=== PATIENT | female | born 1945 | race Caucasian/White ===

== ENCOUNTER 2019-06-10 10:42 | Emergency (ER) | payer MEDICARE, SELFPAY ==
[2019-06-10 10:54] VITALS: BP 146/82; PULSE 89; RESP 16; TEMP 36.3; O2SAT 100
--- NOTE | 2019-06-10 12:05 | ED.GENADULT ---
HPI - General Adult General Chief complaint: Upper Respiratory Infection Stated complaint: sinus drainage/meek/sore throat Time Seen by Provider: 06/10/19 12:05 Source: patient and RN notes reviewed Mode of arrival: ambulatory Limitations: no limitations History of Present Illness HPI narrative: 74-year-old female presents with complains of upper respiratory symptoms, cough, and bilateral otalgia for 1 day. [place] cold plus without relief. Yaquelin says she was coughed on a day ago and now is feeling bad. Constant dry cough. Rhinorrhea and nasal congestion. Denies sore throat. No high fevers, drooling, neck or throat swelling. No chest pain, wheezing, or shortness of breath. No exacerbation factors. Denies nausea, vomiting, and abdominal pain. Tolerating liquids well. Remains active. Some parts of this dictation were generated by voice recognition software and may contain typographical and/or grammatical inaccuracies. Related Data Home Medications Medication Instructions Recorded Confirmed Caltrate + D3 Plus Minerals 02/24/19 05/02/19 Centrum Silver 02/24/19 05/02/19 lansoprazole [Prevacid] 15 mg PO DAILY 02/24/19 05/02/19 albuterol sulfate [ProAir HFA] INHALATION 03/06/19 05/02/19 cholecalciferol (vitamin D3) 25 1,000 unit PO DAILY 05/02/19 05/02/19 mcg (1,000 unit) capsule atorvastatin 06/10/19 Allergies Allergy/AdvReac Type Severity Reaction Status Date / Time adhesive Allergy Unknown Verified 12/19/18 12:31 adhesive tape Allergy Unknown BLISTERS Verified 01/31/19 07:53 AT SITE Penicillins Allergy Unknown Verified 12/19/18 12:31 poison carol extract Allergy Unknown Verified 12/19/18 12:31 Sulfa (Sulfonamide Allergy Unknown Verified 12/19/18 12:31 Antibiotics) sulfanilamide Allergy Unknown Verified 12/12/09 13:57 SKIN GLUE Allergy Unknown RASH Uncoded 01/31/19 07:54 ITCHING. Review of Systems Review of Systems: Narrative: CONSTITUTIONAL: Denies fever, chills, sweats. EYES: Denies visual changes, redness, discharge. ENT:Complains of rhinorrhea, congestion, bilateral otalgia. Denies sore throat. CARDIOVASCULAR: Denies chest pain, palpitations, edema. RESPIRATORY: Denies dyspnea, wheezing. Complains of dry cough. GASTROINTESTINAL: Denies abdominal pain, nausea, vomiting, diarrhea. GENITOURINARY: Denies dysuria, hematuria, abnormal discharge. SKIN: Denies rash or itching. MUSCULOSKELETAL: Denies acute back pain, joint pain, or myalgia. NEUROLOGIC: Denies numbness or focal weakness. PSYCHIATRIC: Denies anxiety or depression. Complains of intermittent MEEK. All systems reviewed & are unremarkable except as noted in HPI and below. [facility] Past Medical History Medical History Allergies Anemia Breast cancer Chicken pox Colitis Constipation History of measles, mumps, or rubella Hot flashes Hyperlipidemia Hypertension Mononucleosis X3 Osteoarthritis Osteopenia Pneumonia Tobacco abuse Surgical History Surgical History H/O lumpectomy X2 2009 Hx of mastectomy Double 04/2016 Family History Family History Father Family history of malignant neoplasm of brain Family history of diabetes mellitus in first degree relative Malignant neoplasm of prostate Diabetes mellitus Mother Hypertension Patient's mother is Sibling Hypertension Patient's sister is in good health Family history of diabetes mellitus in first degree relative Diabetes mellitus Family history of malignant neoplasm of urinary bladder Family history of chronic obstructive pulmonary disease Other Family history of allergic disorder Family history of cardiovascular disease Social History Social History Smoking packs per day: 3 Smoking cigarettes per day:
== END 2019-06-10 12:22 | disposition home or self-care (01) ==
PROVIDERS: Emergency Provider Nurse Practitioner Family; PCP Internal Medicine
DX: J40 Bronchitis, not specified as acute or chronic (principal); E78.5 Hyperlipidemia, unspecified; I10 Essential (primary) hypertension; M19.90 Unspecified osteoarthritis, unspecified site; M81.0 Age-related osteoporosis without current pathological fracture; Z85.3 Personal history of malignant neoplasm of breast; Z90.13 Acquired absence of bilateral breasts and nipples
CPT/HCPCS: 99213; G0463

== ENCOUNTER → 2019-11-13 12:26 | Outpatient (CLI) | payer MEDICARE, SELFPAY ==
--- NOTE | ~2019-11-13 | CT_ITS ---
EXAMINATION: CT lung screening EXAM DATE: 11/13/2019 12:50 INDICATION: Lung cancer screening. Personal history of nicotine dependence. TECHNIQUE: Spiral low dose CT of the chest without contrast. Axial, coronal and sagittal images were reviewed. The dose-length product (DLP) for this examination was 104.38 mGy-cm. The exposure was t ailored according to patient size (auto mA exposure control), and iterative reconstruction (ASIR) was used as additional dose reduction technique. There is no prior study for comparison. FINDINGS: There is mild to moderate emphysema and hyperinflation. Tracheobronchial tree is patent. There is no mediastinal, hilar or axillary lymphadenopathy. There are no pleural or pericardial e ffusions. There is no pneumothorax. Heart normal in size. There is minimal coronary arterial ca lcification, arterial sclerosis. Upper abdomen is unremarkable. There is thoracic spondylosis witho ut osteoblastic or osteolytic lesions identified. IMPRESSION: Lung-RADS category 1, negative (<1%chance of malignancy); recommend continued LDCT screen ing in 1 year. Reviewed, dictated and finalized at location A. IMPRESSION: Lung-RADS category 1, negative (<1%chance of malignancy); recommend continued LDCT screening in 1 year.
== END ==
PROVIDERS: PCP Internal Medicine; Visit Provider Nurse Practitioner
DX: Z87.891 Personal history of nicotine dependence (principal)
CPT/HCPCS: G0297

== ENCOUNTER 2020-01-10 17:24 | Emergency (ER) | payer MEDICARE, SELFPAY ==
[2020-01-10 17:38] VITALS: BP 144/86; PULSE 95; RESP 12; TEMP 36.6; O2SAT 97
--- NOTE | 2020-01-10 18:09 | ED.GENADULT ---
HPI - General Adult General Chief complaint: Ear Stated complaint: ear pain Time Seen by Provider: 01/10/20 18:09 Source: patient Mode of arrival: ambulatory Limitations: no limitations History of Present Illness HPI narrative: 74-year-old female patient presents to the [facility] with complaints of pain to the left earlobe. Patient states about 5 or 6 days ago she did wear some earrings that irritated her ears. Patient states she does have sensitive skin and typically has to wear hypoallergenic earrings and this time she did not. Patient states that since then she has had some swelling, redness that has spread to the ear, pain, itching and now some yellow drainage from the earlobe. Patient states she has been putting some Neosporin on there that does help with the itching. Denies any fevers, body aches or chills. Related Data Home Medications Medication Instructions Recorded Confirmed Caltrate + D3 Plus Minerals 02/24/19 01/08/20 Centrum Silver 02/24/19 01/08/20 lansoprazole [Prevacid] 15 mg PO DAILY 02/24/19 01/10/20 cholecalciferol (vitamin D3) 25 1,000 unit PO DAILY 05/02/19 01/10/20 mcg (1,000 unit) capsule Allergies Allergy/AdvReac Type Severity Reaction Status Date / Time adhesive Allergy Unknown Rash Verified 01/10/20 17:31 adhesive tape Allergy Unknown BLISTERS Verified 01/10/20 17:31 AT SITE Penicillins Allergy Unknown Rash Verified 01/10/20 17:31 poison carol extract Allergy Unknown Rash Verified 01/10/20 17:31 Sulfa (Sulfonamide Allergy Unknown Rash Verified 01/10/20 17:31 Antibiotics) sulfanilamide Allergy Unknown Rash Verified 01/10/20 17:31 SKIN GLUE Allergy Unknown RASH Uncoded 01/08/20 10:34 ITCHING. Review of Systems Review of Systems: Narrative: CONSTITUTIONAL: Denies fever, chills, or sweats. EYES: Denies visual changes, redness, or discharge. ENT: Denies rhinorrhea, congestion, sore throat, or otalgia. CARDIOVASCULAR: Denies chest pain, palpitations, or edema. RESPIRATORY: Denies cough or dyspnea. GASTROINTESTINAL: Denies abdominal pain, nausea, vomiting, or diarrhea. GENITOURINARY: Denies dysuria or hematuria. SKIN: Positive redness, swelling and drainage from the left earlobe with itching MUSCULOSKELETAL: Denies back pain, joint pain, or myalgia. NEUROLOGIC: Denies headache, numbness, or weakness. PSYCHIATRIC: Denies anxiety or depression. [facility] Past Medical History Medical History (Updated 01/10/20 @ 18:14 by BENITEZ [place]) Allergies Anemia Breast cancer Chicken pox Colitis Constipation COPD (chronic obstructive pulmonary disease) GERD (gastroesophageal reflux disease) High cholesterol History of measles, mumps, or rubella Hot flashes Hyperlipidemia Hypertension Mononucleosis X3 Osteoarthritis Osteopenia Pneumonia Tobacco abuse Surgical History Surgical History H/O lumpectomy L was in 2009 R was 2014 H/O: hysterectomy Hx of mastectomy Double 04/2016 Family History Family History Father Family history of malignant neoplasm of brain Family history of diabetes mellitus in first degree relative Malignant neoplasm of prostate Diabetes mellitus Mother Hypertension Patient's mother is Sibling Hypertension Patient's sister is in good health Family history of diabetes mellitus in first degree relative Diabetes mellitus Family history of malignant neoplasm of urinary bladder Family history of chronic obstructive pulmonary disease Other Family history of allergic disorder Family history of cardiovascular disease Social History Social History Smoking status: Former smoker Second hand tobacco smoke exposure: Yes Smoking end date: 06/03/19 Additional smoking assessment comments: Pt smoked 5 cigarettes per day Alcohol intake: current Substance use: unkno
== END 2020-01-10 18:19 | disposition home or self-care (01) ==
PROVIDERS: Emergency Provider Nurse Practitioner Family; PCP Internal Medicine
DX: H60.12 Cellulitis of left external ear (principal); Z87.891 Personal history of nicotine dependence; Z85.3 Personal history of malignant neoplasm of breast; J44.9 Chronic obstructive pulmonary disease, unspecified; K21.9 Gastro-esophageal reflux disease without esophagitis; E78.00 Pure hypercholesterolemia, unspecified; E78.5 Hyperlipidemia, unspecified; I10 Essential (primary) hypertension; M19.90 Unspecified osteoarthritis, unspecified site; M85.80 Other specified disorders of bone density and structure, unspecified site; Z90.13 Acquired absence of bilateral breasts and nipples
CPT/HCPCS: 99213; G0463

== ENCOUNTER 2020-01-16 08:28 | Emergency (ER) | payer MEDICARE, SELFPAY ==
[2020-01-16 08:40] VITALS: BP 147/98; PULSE 101; RESP 17; TEMP 37; O2SAT 100
[2020-01-16 08:53] LABS: Basophils Absolute Auto 0.1 K/mm3 (0.0-0.1); Basophils Percent Auto 0.5 % (0.2-1.2); Eosinophils Absolute Auto 0.5 K/mm3 (0-0.3); Eosinophils Percent Auto 5.7 % (0-4.4); Hematocrit 38.6 % (37.0-47.0); Hemoglobin 12.7 g/dL (12.0-15.0); Immature Granulocyte Absolute 0.03 K/mm3 (0.00-0.031); Immature Granulocyte Percent A 0.3 % (0-0.5); Lymphocytes Absolute Auto 2.47 K/mm3 (0.9-3.2); Mean Corpuscular HGB Conc 32.9 g/dl (32-36); Mean Corpuscular Hemoglobin 33.3 pg (26-34); Mean Corpuscular Volume 101.3 fl (80-100); Mean Platelet Volume 10.6 fl (7.4-10.4); Monocytes Absolute Auto 0.9 K/mm3 (0.1-0.6); Monocytes Percent Auto 9.9 % (2.6-8.5); Neutrophils Absolute Auto 5.2 K/mm3 (1.3-6.7); Neutrophils Percent Auto 56.6 % (45.5-73.1); Platelet Count Result 225 k/mm3 (150-375); Red Blood Count 3.81 M/mm3 (4.2-5.4); Red Cell Distribution Width 12.6 % (11.5-14.5); White Blood Count 9.2 K/mm3 (4.5-10.0)
[2020-01-16 09:03] LABS: Prothrombin Time 12.9 Seconds (11.1-14.7)
[2020-01-16 09:04] LABS: Partial Thromboplastin Time 28.6 SECONDS (22.3-36.8)
[2020-01-16 09:13] LABS: Alanine Aminotransferase 16 U/L (4-35); Albumin Level 4.1 g/dL (3.5-5.1); Alkaline Phosphatase 83 U/L (38-126); Anion Gap 9 mmol/L (8-16); Aspartate Amino Transferase 24 U/L (14-36); Bilirubin,Total 0.7 mg/dL (0.2-1.3); Blood Urea Nitrogen 17 mg/dL (7-17); CRP 1.1 mg/dL (<1.0); Calcium 9.5 mg/dL (8.4-10.2); Carbon Dioxide 29 mmol/L (22-30); Chloride 101 mmol/L (98-107); Estimated CRCL calculation 40 ml/min; Estimated Glomerular Filt Rate 49; Glucose 145 mg/dL (65-105); Sodium 139 mmol/L (137-145)
--- NOTE | 2020-01-16 10:02 | ED.GENADULT ---
HPI - General Adult General Chief complaint: Ear Stated complaint: cellulitis Time Seen by Provider: 01/16/20 09:30 Source: patient Mode of arrival: ambulatory Limitations: no limitations History of Present Illness HPI narrative: Patient 74 years old white female presents with severe itching and weeping of the skin of the left ear distally, left side of neck. Started 1 week ago. 1 day later patient went to urgent care and started on antibiotics, topical Neosporin. 3 days ago was seen by her family physician and started on doxycycline, Polysporin and hydrocodone. Patient reports having allergy to an old earring mainly left ear, quit using it years ago, recently lost her good hearing years and started using the old earring again, 1 week prior to the beginning of her symptoms. Patient is nondiabetic. Patient denies any fever, chills, nausea, vomiting, headache, or hearing abnormality Related Data Home Medications Medication Instructions Recorded Confirmed Caltrate + D3 Plus Minerals 02/24/19 01/08/20 Centrum Silver 02/24/19 01/08/20 lansoprazole [Prevacid] 15 mg PO DAILY 02/24/19 01/10/20 cholecalciferol (vitamin D3) 25 1,000 unit PO DAILY 05/02/19 01/10/20 mcg (1,000 unit) capsule Allergies Allergy/AdvReac Type Severity Reaction Status Date / Time adhesive Allergy Unknown Rash Verified 01/16/20 08:45 adhesive tape Allergy Unknown BLISTERS Verified 01/16/20 08:45 AT SITE Penicillins Allergy Unknown Rash Verified 01/16/20 08:45 poison carol extract Allergy Unknown Rash Verified 01/16/20 08:45 Sulfa (Sulfonamide Allergy Unknown Rash Verified 01/16/20 08:45 Antibiotics) sulfanilamide Allergy Unknown Rash Verified 01/16/20 08:45 SKIN GLUE Allergy Unknown RASH Uncoded 01/16/20 08:45 ITCHING. Review of Systems Review of Systems: Narrative: CONSTITUTIONAL: Denies fever, chills, or sweats. EYES: Denies visual changes, redness, or discharge. ENT: Denies rhinorrhea, congestion, sore throat, or otalgia. CARDIOVASCULAR: Denies chest pain, palpitations, or edema. RESPIRATORY: Denies cough or dyspnea. GASTROINTESTINAL: Denies abdominal pain, nausea, vomiting, or diarrhea. GENITOURINARY: Denies dysuria or hematuria. SKIN: Denies rash or itching. MUSCULOSKELETAL: Denies back pain, joint pain, or myalgia. NEUROLOGIC: Denies headache, numbness, or weakness. PSYCHIATRIC: Denies anxiety or depression. [facility] Past Medical History Medical History (Updated 01/16/20 @ 10:24 by Maria C Looney MD) Allergies Anemia Breast cancer Chicken pox Colitis Constipation COPD (chronic obstructive pulmonary disease) GERD (gastroesophageal reflux disease) High cholesterol History of measles, mumps, or rubella Hot flashes Hyperlipidemia Hypertension Mononucleosis X3 Osteoarthritis Osteopenia Pneumonia Tobacco abuse Surgical History Surgical History H/O lumpectomy L was in 2009 R was 2014 H/O: hysterectomy Hx of mastectomy Double 04/2016 Family History Family History Father Family history of malignant neoplasm of brain Family history of diabetes mellitus in first degree relative Malignant neoplasm of prostate Diabetes mellitus Mother Hypertension Patient's mother is Sibling Hypertension Patient's sister is in good health Family history of diabetes mellitus in first degree relative Diabetes mellitus Family history of malignant neoplasm of urinary bladder Family history of chronic obstructive pulmonary disease Other Family history of allergic disorder Family history of cardiovascular disease Social History Social History Smoking status: Former smoker Second hand tobacco smoke exposure: Yes Smoking end date: 06/03/19 Additional smoking assessment comments: Pt smoked 5 cigarettes per day Alcohol intake: current Substance us
[2020-01-16] MEDS: predniSONE 20 MG TABLET 60 MG PO (10:28)
[2020-01-16] MEDS: LORATADINE 10 MG TABLET PO (10:29)
[2020-01-16 10:31] VITALS: BP 157/92; PULSE 80; RESP 17; O2SAT 96
[2020-01-16] MEDS: TRIAMCINOLONE ACET 0.5% OINT 15 GM TUBE 1 APPLIC TOPICAL (10:53)
== END 2020-01-16 11:00 | disposition home or self-care (01) ==
PROVIDERS: Emergency Provider Emergency Medicine; PCP Internal Medicine
DX: L23.0 Allergic contact dermatitis due to metals (principal); Z85.3 Personal history of malignant neoplasm of breast; K21.9 Gastro-esophageal reflux disease without esophagitis; E78.5 Hyperlipidemia, unspecified; I10 Essential (primary) hypertension; M19.90 Unspecified osteoarthritis, unspecified site; M85.80 Other specified disorders of bone density and structure, unspecified site; Z86.2 Personal history of diseases of the blood and blood-forming organs and certain disorders involving the immune mechanism; Z90.13 Acquired absence of bilateral breasts and nipples; Z87.891 Personal history of nicotine dependence
CPT/HCPCS: 36415; 80053; 83605; 85025; 85610; 85730; 86140; 87040; 99283; A9270; J7512

== ENCOUNTER 2020-01-26 09:11 | Emergency (ER) | payer MEDICARE, SELFPAY ==
[2020-01-26 09:17] VITALS: BP 157/92; PULSE 84; RESP 16; TEMP 36.4; O2SAT 99
[2020-01-26 09:22] VITALS: BP 157/92; PULSE 84; RESP 16; TEMP 36.4; O2SAT 99
--- NOTE | 2020-01-26 09:44 | ED.SKABFB ---
HPI - Skin/Abscess/Foreign Bdy General Chief complaint: Skin/Abscess/Foreign Body Stated complaint: rash Source: patient and RN notes reviewed Limitations: no limitations History of Present Illness HPI narrative: The patient, is on several meds, presents for wound/rash check. Patient relates she has had several visits including to urgent care and the ER for skin eruption of her left ear. She states that the first week of January she developed a rash around her left earlobe after wearing earrings in her pierced ears [it did not elicit allergic reaction on the opposite earlobe]. She has been treated first with clindamycin here and then doxycycline by PMD, for cellulitis. She was seen in the hospital ED and added steroids, and antihistamines for allergic reaction-after noncontributory lab testing. She complains of continued redness, itching progressing to pain, and scant discharge still centered on her earlobe, but with surrounding redness around neck and mastoid. Symptoms are mild to moderate, worse with palpation, unrelieved with previous preparations ; discussed will substitute bacteriocidal/antipseudomonal antibiotic [stopping Atarax], and to see ENT [that she has seen before ] if not improved Related Data Home Medications Medication Instructions Recorded Confirmed Caltrate + D3 Plus Minerals 02/24/19 01/08/20 Centrum Silver 02/24/19 01/08/20 lansoprazole [Prevacid] 15 mg PO DAILY 02/24/19 01/26/20 cholecalciferol (vitamin D3) 25 1,000 unit PO DAILY 05/02/19 01/26/20 mcg (1,000 unit) capsule Allergies Allergy/AdvReac Type Severity Reaction Status Date / Time adhesive Allergy Unknown Rash Verified 01/26/20 09:17 adhesive tape Allergy Unknown BLISTERS Verified 01/26/20 09:17 AT SITE Penicillins Allergy Unknown Rash Verified 01/26/20 09:17 poison carol extract Allergy Unknown Rash Verified 01/26/20 09:17 Sulfa (Sulfonamide Allergy Unknown Rash Verified 01/26/20 09:17 Antibiotics) sulfanilamide Allergy Unknown Rash Verified 01/26/20 09:17 SKIN GLUE Allergy Unknown RASH Uncoded 01/16/20 08:45 ITCHING. Review of Systems Review of Systems: Narrative: General/Constitutional: No weight loss,fever Eyes: N0: Redness,discharge Ears/Nose/Throat: No: Epistaxis,ear discharge Respiratory: Denies: Hemoptysis Gastrointestinal: No Vomiting, Bleeding-rectal Skin: No Lumps, REPORTS eruption Neurologic: No Focal Weakness,Sz Hematologic: Denies: Petechiae/Purpura Psychiatric: No: Suicida ideationl All Other Systems: Reviewed and Negative [facility] Past Medical History Medical History (Updated 01/26/20 @ 10:00 by Marvel Mcneal MD) Allergies Anemia Breast cancer Chicken pox Colitis Constipation COPD (chronic obstructive pulmonary disease) GERD (gastroesophageal reflux disease) High cholesterol History of measles, mumps, or rubella Hot flashes Hyperlipidemia Hypertension Mononucleosis X3 Osteoarthritis Osteopenia Pneumonia Tobacco abuse Surgical History Surgical History H/O lumpectomy L was in 2009 R was 2014 H/O: hysterectomy Hx of mastectomy Double 04/2016 Family History Family History Father Family history of malignant neoplasm of brain Family history of diabetes mellitus in first degree relative Malignant neoplasm of prostate Diabetes mellitus Mother Hypertension Patient's mother is Sibling Hypertension Patient's sister is in good health Family history of diabetes mellitus in first degree relative Diabetes mellitus Family history of malignant neoplasm of urinary bladder Family history of chronic obstructive pulmonary disease Other Family history of allergic disorder Family history of cardiovascular disease Social History Social History Smoking status: Former smoker Second hand tobacco smoke ex
== END 2020-01-26 09:55 | disposition home or self-care (01) ==
PROVIDERS: Emergency Provider Emergency Medicine; PCP Internal Medicine
DX: Z48.00 Encounter for change or removal of nonsurgical wound dressing (principal); Z87.2 Personal history of diseases of the skin and subcutaneous tissue; J44.9 Chronic obstructive pulmonary disease, unspecified; K21.9 Gastro-esophageal reflux disease without esophagitis; E78.00 Pure hypercholesterolemia, unspecified; E78.5 Hyperlipidemia, unspecified; I10 Essential (primary) hypertension; M19.90 Unspecified osteoarthritis, unspecified site; M85.80 Other specified disorders of bone density and structure, unspecified site; Z85.3 Personal history of malignant neoplasm of breast; Z90.13 Acquired absence of bilateral breasts and nipples; Z87.891 Personal history of nicotine dependence
CPT/HCPCS: 99213; G0463

== ENCOUNTER 2020-08-25 13:26 | Emergency (ER) | payer MEDICARE, SELFPAY ==
[2020-08-25] VITALS (9 sets, daily range): BP systolic 112–188; BP diastolic 74–123; PULSE 78–96; RESP 16–18; TEMP 36.5–36.6; O2SAT 96–100
--- NOTE | ~2020-08-25 | CT_ITS ---
EXAMINATION: CTA chest PE abdomen pel DATE: 08/25/2020 16:54 INDICATION: Right rib pain. Back and lower abdominal pain. Bloating. TECHNIQUE: Computed tomography (CT) pulmonary angiogram of the chest was performed with 100 mL Omnipa que-350 intravenous contrast. Additional 3D reconstructions utilizing coronal maximum intensity proje ction (MIP) were performed. CT of the abdomen and pelvis was performed with intravenous contrast util izing the same contrast bolus following a short delay. Automated exposure control and iterative recon struction technique were employed. The dose-length product was 802.97 mGy-cm. COMPARISON: None FINDINGS: Chest: Excellent contrast opacification of the pulmonary arteries. There is mild streak artifact from dense contrast in the superior vena cava and right atrium. Mild scattered respiratory motion artifact which does not significantly limit evaluation. No pulmonary embolism. Mild discoid atelectasis right lower lobe. No pneumonia, pulmonary edema or pleural effusion. Heart size is normal. No pericardial or ple ural effusion. Ectatic descending thoracic aorta measuring up to 3.8 cm maximal diameter with no diss ection. No pathologically enlarged thoracic lymphadenopathy. 1.4 cm right thyroid nodule 1-2 mm coars e calcification. Mild thoracic spondylosis. Abdomen/pelvis: Diffuse hepatic steatosis. Gallbladder, spleen, pancreas and bilateral adrenal glands are normal. Cou ple subcentimeter bilateral renal cysts. Mild scattered diverticulosis without adjacent inflammatory change to suggest diverticulitis. Small bowel and appendix are normal. Bladder, uterus and bilateral adnexa are normal. Fusiform infrarenal abdominal aortic aneurysm measuring up to 4.0 x 3.9 cm in maxi mal transaxial dimensions. Ectasia of the bilateral common iliac arteries measuring 1.6 cm in maximal diameter on the right and 1.9 cm on the left. No free intraperitoneal gas or fluid. No pathologicall y enlarged abdominal or pelvic lymphadenopathy. Mild lumbar dextroscoliosis with severe lower lumbar spondylosis. S1 is lumbarized on the left. IMPRESSION: 1. No pulmonary embolism or other acute cardiopulmonary disease. 2. No acute intra-abdominal/pelvic process. 3. 4.0 cm fusiform aneurysm of the infrarenal abdominal aorta with less prominent ectasia of the desc ending thoracic aorta and bilateral common iliac arteries. Reviewed, dictated and finalized at location A. IMPRESSION: 1. No pulmonary embolism or other acute cardiopulmonary disease. 2. No acute intra-abdominal/pelvic process. 3. 4.0 cm fusiform aneurysm of the infrarenal abdominal aorta with less promine nt ectasia of the descending thoracic aorta and bilateral common iliac arteries .
--- NOTE | ~2020-08-25 | XR_ITS ---
XR chest 1V portable 08/25/2020 15:50 Indication: Right rib pain Procedure: AP portable chest Comparison: 04/01/2016 Findings: Heart size normal. No focal air space disease, pulmonary edema, pleural effusion or suspect ed pneumothorax. Impression: 1: No acute cardiopulmonary disease. Reviewed, dictated and finalized at location A. Impression: 1: No acute cardiopulmonary disease.
[2020-08-25 14:10] LABS: Basophils Percent Auto 0.6 % (0.2-1.2); Eosinophils Absolute Auto 0.1 K/mm3 (0-0.3); Eosinophils Percent Auto 1.1 % (0-4.4); Hematocrit 39.4 % (37.0-47.0); Hemoglobin 13.1 g/dL (12.0-15.0); Immature Granulocyte Absolute 0.01 K/mm3 (0.00-0.031); Immature Granulocyte Percent A 0.2 % (0-0.5); Lymphocytes Absolute Auto 2.22 K/mm3 (0.9-3.2); Lymphocytes Percent Auto 33.9 % (18.3-44.2); Mean Corpuscular HGB Conc 33.2 g/dl (32-36); Mean Corpuscular Hemoglobin 32.8 pg (26-34); Mean Corpuscular Volume 98.5 fl (80-100); Mean Platelet Volume 9.7 fl (7.4-10.4); Monocytes Absolute Auto 0.7 K/mm3 (0.1-0.6); Monocytes Percent Auto 10.4 % (2.6-8.5); Neutrophils Absolute Auto 3.5 K/mm3 (1.3-6.7); Neutrophils Percent Auto 53.8 % (45.5-73.1); Platelet Count Result 257 k/mm3 (150-375); Red Cell Distribution Width 13.2 % (11.5-14.5); White Blood Count 6.5 K/mm3 (4.5-10.0)
[2020-08-25 14:20] LABS: Alanine Aminotransferase 26 U/L (4-35); Albumin Level 4.6 g/dL (3.5-5.1); Alkaline Phosphatase 86 U/L (38-126); Anion Gap 9 mmol/L (8-16); Aspartate Amino Transferase 38 U/L (14-36); Bilirubin,Total 0.3 mg/dL (0.2-1.3); Blood Urea Nitrogen 11 mg/dL (7-17); Calcium 10.3 mg/dL (8.4-10.2); Carbon Dioxide 25 mmol/L (22-30); Chloride 103 mmol/L (98-107); Estimated CRCL calculation 43 ml/min; Estimated Glomerular Filt Rate 54; Glucose 111 mg/dL (65-105); Lipase 81 U/L (23-300); Potassium 3.8 mmol/L (3.4-5.0); Sodium 137 mmol/L (137-145)
--- NOTE | 2020-08-25 15:40 | ECG_ITS ---
Measurements Intervals [place] Rate: 72 P: 65 OK: 133 QRS: 73 QRSD: 87 T: 61 QT: 387 QTc: 425 Interpretive Statements SINUS RHYTHM NORMAL ECG Electronically Signed On 08-25-2020 16:21:19 CDT by Siva Davis D.O.
--- NOTE | 2020-08-25 15:41 | ED.GENADULT ---
HPI - General Adult General Chief complaint: Unspecified Stated complaint: shingles, bloating Time Seen by Provider: 08/25/20 15:08 Source: patient and RN notes reviewed Mode of arrival: ambulatory Limitations: no limitations History of Present Illness HPI narrative: This is a 75 year old female who presents for evaluation of abdominal pain. She states she has been having diffuse abdominal pain since last night. Her pain has been constant and she is also reporting right chest pain. She describes her right chest pain as difficulty taking a breath. She has associated nausea. She reports having 4 small bowel movements today. She has been on treatment for shingles since last week. She reports talking Valtrex and ibuprofen. She denies cough, fever or chills. Related Data Home Medications Medication Instructions Recorded Confirmed Centrum Silver 02/24/19 08/15/20 lansoprazole [Prevacid] 15 mg PO DAILY 02/24/19 08/15/20 cholecalciferol (vitamin D3) 25 1,000 unit PO DAILY 05/02/19 08/15/20 mcg (1,000 unit) capsule Allergies Allergy/AdvReac Type Severity Reaction Status Date / Time adhesive Allergy Unknown Rash Verified 05/06/20 10:25 adhesive tape Allergy Unknown BLISTERS Verified 05/06/20 10:25 AT SITE Penicillins Allergy Unknown Rash Verified 05/06/20 10:25 poison carol extract Allergy Unknown Rash Verified 05/06/20 10:25 Sulfa (Sulfonamide Allergy Unknown Rash Verified 05/06/20 10:25 Antibiotics) sulfanilamide Allergy Unknown Rash Verified 05/06/20 10:25 SKIN GLUE Allergy Unknown RASH Uncoded 05/06/20 10:25 ITCHING. Review of Systems Review of Systems: Narrative: CONSTITUTIONAL: Denies fever, chills, or sweats. EYES: Denies visual changes, redness, or discharge. ENT: Denies rhinorrhea, congestion, sore throat, or otalgia. CARDIOVASCULAR: Denies palpitations, or edema. reports right chest pain RESPIRATORY: Denies cough. reports difficulty taking a breath. GASTROINTESTINAL: Denies vomiting, or diarrhea. reports nausea and abdominal pain GENITOURINARY: Denies dysuria or hematuria. SKIN: reports shingles rash. MUSCULOSKELETAL: Denies joint pain, or myalgia. NEUROLOGIC: Denies headache, numbness, PSYCHIATRIC: Denies anxiety or depression. All systems reviewed & are unremarkable except as noted in HPI and below PMFSH Past Medical History Medical History (Updated 08/25/20 @ 18:57 by Re Perez MD) Allergies Anemia Breast cancer Chicken pox Colitis Constipation COPD (chronic obstructive pulmonary disease) GERD (gastroesophageal reflux disease) High cholesterol History of measles, mumps, or rubella Hot flashes Hyperlipidemia Hypertension Mononucleosis X3 Osteoarthritis Osteopenia Pneumonia Tobacco abuse Surgical History Surgical History H/O lumpectomy L was in 2009 R was 2014 H/O: hysterectomy Hx of mastectomy Double 04/2016 Family History Family History Father Family history of malignant neoplasm of brain Family history of diabetes mellitus in first degree relative Malignant neoplasm of prostate Diabetes mellitus Mother Hypertension Patient's mother is Sibling Hypertension Patient's sister is in good health Family history of diabetes mellitus in first degree relative Diabetes mellitus Family history of malignant neoplasm of urinary bladder Family history of chronic obstructive pulmonary disease Other Family history of allergic disorder Family history of cardiovascular disease Social History Social History Smoking status: Former smoker Second hand tobacco smoke exposure: Yes Smoking end date: 06/03/19 Additional smoking assessment comments: Pt smoked 5 cigarettes per day Alcohol intake: current Substance use: unknown Gender identity (if verbalized by the patient): Leeroya
[2020-08-25 15:43] LABS: Add Urine Microscopic? NO; Appearance Urine Clear (Clear); Bilirubin Urine Negative (Negative); Blood Urine Negative (Negative); Color Urine Straw (Yellow); Glucose Urine UA Negative (Negative); Ketones Urine Negative (Negative); Leukocyte Esterase Ur Negative LEU/UL (Negative); Nitrate Urine Negative (Negative); Protein Urine Negative (Negative); Specific Grav Ur 1.008 (1.001-1.035); Urobilinogen Urine Negative mg/dL (<2.0)
--- NOTE | 2020-08-25 15:51 | PC.NURSE ---
called main lab and talked to barb @[id number] added pt, inr, ptt, d dimer, and trop
[2020-08-25] MEDS: ONDANSETRON INJ 4 MG/2 ML VIAL IV PUSH (15:58)
[2020-08-25] MEDS: LACTATED RINGERS 1,000 ML 999 ML IV CONT (15:58)
[2020-08-25 16:07] LABS: INR 0.9; Partial Thromboplastin Time 26.9 SECONDS (22.3-36.8); Prothrombin Time 12.8 Seconds (11.1-14.7)
[2020-08-25 18:29] LABS: Troponin I < 0.012 ng/mL (0.000-0.034)
== END 2020-08-25 19:11 | disposition home or self-care (01) ==
PROVIDERS: Emergency Medicine; Emergency Provider General Practice; PCP Internal Medicine
DX: B02.9 Zoster without complications (principal); I71.4 Abdominal aortic aneurysm, without rupture; R10.84 Generalized abdominal pain; J44.9 Chronic obstructive pulmonary disease, unspecified; K21.9 Gastro-esophageal reflux disease without esophagitis; E78.5 Hyperlipidemia, unspecified; M19.90 Unspecified osteoarthritis, unspecified site; M85.80 Other specified disorders of bone density and structure, unspecified site; Z85.3 Personal history of malignant neoplasm of breast; Z87.891 Personal history of nicotine dependence
CPT/HCPCS: 36415; 71045; 71275; 74177; 80053; 81003; 83690; 84484; 85025; 85380; 85610; 85730; 93005; 96365; 96375; 99284; J0131; J2405; J7120; Q9967

== ENCOUNTER 2020-12-07 13:08 | Inpatient (IN) | payer MEDICARE, SELFPAY ==
--- NOTE | ~2020-12-07 | CT_ITS ---
EXAMINATION: CT abdomen pelvis w con DATE: 12/07/2020 14:31 INDICATION: Low abdominal pain. Blood in stool. TECHNIQUE: Computed tomography (CT) of the abdomen and pelvis was performed with 100 mL Omnipaque 350 intravenous contrast. Automated exposure control and iterative reconstruction technique were employe d. The dose-length product was 502.30 mGy-cm. COMPARISON: CT abdomen and pelvis 08/25/2020 FINDINGS: The visualized portions of the lung bases demonstrate mild atelectasis. There is mild emphy sema. No pleural effusion. The heart size is normal. No pericardial effusion. There is diffuse hepati c steatosis. The gallbladder, spleen, and pancreas are normal. There are cysts in the kidneys measuri ng up to 6 mm on the right. There is a left inguinal hernia containing fat. There are scattered diver ticula in the colon. There is wall thickening of the descending and sigmoid colon with mild surroundi ng fat stranding, consistent with colitis. The appendix is normal. There is a 4.0 cm fusiform aneurys m of infrarenal aorta. There is no significant stenosis of celiac axis, superior mesenteric artery, o r inferior mesenteric artery. There is trace pelvic ascites. There are no pathologically enlarged lym ph nodes. There is severe lumbar spondylosis. IMPRESSION: 1. Colitis involving the descending and sigmoid colon. The differential diagnosis includes infectious colitis and ischemic colitis (such as from a hypotensive episode). 2. Stable 4.0 cm fusiform aneurysm of infrarenal aorta. Reviewed, dictated and finalized at location A. IMPRESSION: 1. Colitis involving the descending and sigmoid colon. The differential diagnos is includes infectious colitis and ischemic colitis (such as from a hypotensive episode). 2. Stable 4.0 cm fusiform aneurysm of infrarenal aorta.
--- NOTE | 2020-12-07 13:25 | ECG_ITS ---
Measurements Intervals [place] Rate: 85 P: 50 WI: 123 QRS: 71 QRSD: 83 T: 50 QT: 362 QTc: 432 Interpretive Statements SINUS RHYTHM VENTRICULAR PREMATURE COMPLEX BORDERLINE ECG Electronically Signed On 12-07-2020 20:38:13 CDT by Siva Davis D.O.
--- NOTE | 2020-12-07 13:27 | ED.ABDPAIN ---
HPI - Abdominal Pain General Chief Complaint: Abdominal Pain Stated Complaint: rectal bleeding Time Seen by Provider: 12/07/20 13:11 Source: patient and RN notes reviewed Mode of arrival: ambulatory Limitations: no limitations History of Present Illness HPI narrative: This is a 75 year old female who presents for evaluation of abdominal pain and rectal bleeding. This morning around 2 am she developed lower abdominal pain. She reports she had urge to have a bowel movement and she passed small amount of stool . She reports dizziness and flushing when she tried to stand up from the toilet. Throughout the morning she has continued to have intermittent waves of lower abdominal pain, and at 6 30 am she noticed that she is passing bright red blood per rectum. Her last episode of rectal bleeding was 45 minutes ago. She denies any abdominal pain currently. Her states there appeared to be significant amount of blood in the toilet. She denies previous history of GI hemorrhage. She denies taking any blood thinners. Her last colonoscopy was [address] Sood. Related Data Home Medications Medication Instructions Recorded Confirmed lansoprazole [Prevacid] 15 mg PO DAILY 02/24/19 12/07/20 cholecalciferol (vitamin D3) 25 1,000 unit PO DAILY 05/02/19 12/07/20 mcg (1,000 unit) capsule calcium carbonate-vitamin D3 1 tablet PO DAILY 12/07/20 12/07/20 [Caltrate 600 plus D] Allergies Allergy/AdvReac Type Severity Reaction Status Date / Time adhesive Allergy Unknown Rash Verified 12/07/20 13:42 adhesive tape Allergy Unknown BLISTERS Verified 12/07/20 13:42 AT SITE Penicillins Allergy Unknown Rash Verified 12/07/20 13:42 poison carol extract Allergy Unknown Rash Verified 12/07/20 13:42 Sulfa (Sulfonamide Allergy Unknown Rash Verified 12/07/20 13:42 Antibiotics) sulfanilamide Allergy Unknown Rash Verified 12/07/20 13:42 SKIN GLUE Allergy Unknown RASH Uncoded 12/07/20 13:42 ITCHING. Review of Systems Review of Systems: All systems reviewed & are unremarkable except as noted in HPI and below PMFSH Past Medical History Medical History (Updated 12/08/20 @ 00:27 by Re Perez MD) Aneurysm of infrarenal abdominal aorta Stable 4.0 cm fusiform aneurysm on CT of the abdomen and pelvis dated 12/07/2020. Breast cancer Status post radiation therapy and lumpectomy with subsequent bilateral mastectomy. Chronic obstructive pulmonary disease Diverticulosis Former smoker Gastroesophageal reflux disease Hyperlipidemia Hypertension Osteoarthritis Osteopenia Shingles (08/2020) Surgical History Surgical History (Updated 12/07/20 @ 21:16 by Page Wallace PA-C) History of bilateral mastectomy (04/2016) History of hysterectomy History of lumpectomy of left breast (07/2009) History of lumpectomy of right breast (11/2014) Status post cataract extraction of both eyes with insertion of intraocular lens (2014) Family History Family History Father Family history of malignant neoplasm of brain Family history of diabetes mellitus in first degree relative Malignant neoplasm of prostate Diabetes mellitus Mother Hypertension Patient's mother is Sibling Hypertension Patient's sister is in good health Family history of diabetes mellitus in first degree relative Diabetes mellitus Family history of malignant neoplasm of urinary bladder Family history of chronic obstructive pulmonary disease Other Family history of allergic disorder Family history of cardiovascular disease Social History Social History (Updated 12/07/20 @ 21:17 by Page Wallace PA-C) Social History: The patient is and lives with her in [place]. She has no children. 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 Smoked 0.5 packs of cigarettes a day for many years and quit in early 2019. No alcohol or illicit substance abuse. Sh
[2020-12-07 13:29] VITALS: BP 132/102; PULSE 108; RESP 16; TEMP 36.8; O2SAT 100
[2020-12-07] MEDS: SODIUM CHLORIDE 0.9% IV 1,000 ML 999 ML IV CONT (13:41)
[2020-12-07 14:02] LABS: Basophils Percent Auto 0.3 % (0.2-1.2); Eosinophils Absolute Auto 0.1 K/mm3 (0-0.3); Eosinophils Percent Auto 0.5 % (0-4.4); Hematocrit 39.5 % (37.0-47.0); Immature Granulocyte Absolute 0.05 K/mm3 (0.00-0.031); Immature Granulocyte Percent A 0.4 % (0-0.5); Lymphocytes Absolute Auto 2.25 K/mm3 (0.9-3.2); Lymphocytes Percent Auto 18.8 % (18.3-44.2); Mean Corpuscular HGB Conc 32.9 g/dl (32-36); Mean Corpuscular Hemoglobin 33.4 pg (26-34); Mean Corpuscular Volume 101.5 fl (80-100); Mean Platelet Volume 10.8 fl (7.4-10.4); Monocytes Absolute Auto 0.9 K/mm3 (0.1-0.6); Monocytes Percent Auto 7.3 % (2.6-8.5); Neutrophils Absolute Auto 8.7 K/mm3 (1.3-6.7); Neutrophils Percent Auto 72.7 % (45.5-73.1); Platelet Count Result 227 k/mm3 (150-375); Red Blood Count 3.89 M/mm3 (4.2-5.4); Red Cell Distribution Width 12.4 % (11.5-14.5)
[2020-12-07 14:11] LABS: Alanine Aminotransferase 22 U/L (4-35); Albumin Level 4.2 g/dL (3.5-5.1); Alkaline Phosphatase 103 U/L (38-126); Anion Gap 8 mmol/L (8-16); Aspartate Amino Transferase 29 U/L (14-36); Bilirubin,Total 0.5 mg/dL (0.2-1.3); Blood Urea Nitrogen 16 mg/dL (7-17); Calcium 9.6 mg/dL (8.4-10.2); Carbon Dioxide 22 mmol/L (22-30); Chloride 106 mmol/L (98-107); Estimated CRCL calculation 48 ml/min; Estimated Glomerular Filt Rate > 60; Glucose 119 mg/dL (65-110); Lactic Acid Reflex 1.4 mmol/L (0.7-2.1); Sodium 136 mmol/L (137-145)
[2020-12-07 14:13] LABS: INR 0.9; Prothrombin Time 12.1 Seconds (11.1-14.7)
[2020-12-07 14:14] LABS: Partial Thromboplastin Time 28.2 SECONDS (22.3-36.8)
[2020-12-07 14:33] VITALS: BP 151/73; PULSE 82
[2020-12-07 14:34] VITALS: BP 160/83; PULSE 90
[2020-12-07 14:35] VITALS: BP 155/88; PULSE 93
--- NOTE | 2020-12-07 15:00 | PM.IMHP ---
H&P: HPI History of Present Illness Date/Time: 12/07/20 15:00 Chief Complaint: Abdominal pain and rectal bleeding. Narrative: This is a very pleasant 75-year-old female with history of hypertension, hyperlipidemia, and abdominal aortic aneurysm who presented to the emergency department earlier today via private vehicle from home for evaluation of abdominal pain and rectal bleeding. Late last evening near midnight she developed mild upset stomach and was wakened from sleep at 02:30 with diffuse lower abdominal cramping and the urge to have a bowel movement. She reports passing a loose stool and noticed a small amount of blood on the toilet paper. Since that time she has had four bowel movements though the last several were mostly bright red blood admixed with clots. She has not had a fever but reports having significant sweats with nausea and dizziness while on the toilet earlier this morning though that has since passed. Abdominal CT showed colitis involving the descending and sigmoid colon and she is being admitted in this setting. She denies sick contacts, recent travel, and recent antibiotic use. She has no history of inflammatory bowel disease but reports having bouts of colitis over the years. No vomiting. No chest pain or shortness of breath. Review of Systems Review of Systems: Twelve systems were reviewed with pertinent positives and negatives as per HPI. No fever. No recent cold or flu symptoms. She denies chest pain shortness of breath. No syncopal episode. Denies hematuria. She has had quite a bit of nausea but no vomiting. She does not think her blood pressures have been running low. Within the last several months she had shingles on the right lower thorax and continues to have mild post herpetic neuralgia for which she was taking gabapentin though that does not help. Except as documented, all other systems were reviewed and are negative. [facility] Past Medical History Medical History (Updated 12/07/20 @ 21:21 by Page Wallace PA-C) Aneurysm of infrarenal abdominal aorta Stable 4.0 cm fusiform aneurysm on CT of the abdomen and pelvis dated 12/07/2020. Breast cancer Status post radiation therapy and lumpectomy with subsequent bilateral mastectomy. Chronic obstructive pulmonary disease Diverticulosis Former smoker Gastroesophageal reflux disease Hyperlipidemia Hypertension Osteoarthritis Osteopenia Shingles (08/2020) Surgical History Surgical History (Updated 12/07/20 @ 21:16 by Page Wallace PA-C) History of bilateral mastectomy (04/2016) History of hysterectomy History of lumpectomy of left breast (07/2009) History of lumpectomy of right breast (11/2014) Status post cataract extraction of both eyes with insertion of intraocular lens (2014) Family History Family History Father Family history of malignant neoplasm of brain Family history of diabetes mellitus in first degree relative Malignant neoplasm of prostate Diabetes mellitus Mother Hypertension Patient's mother is Sibling Hypertension Patient's sister is in good health Family history of diabetes mellitus in first degree relative Diabetes mellitus Family history of malignant neoplasm of urinary bladder Family history of chronic obstructive pulmonary disease Other Family history of allergic disorder Family history of cardiovascular disease Social History Social History (Updated 12/07/20 @ 21:17 by Page Wallace PA-C) Social History: The patient is and lives with her in [place]. She has no children. 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 Smoked 0.5 packs of cigarettes a day for many years and quit in early 2019. No alcohol or illicit substance abuse. She designates her or her sister, Phyllis Laguerre, as her surrogate decision makers. Code status: Full code. Meds Home Medications and Allergies Home Medications Medication Inst
[2020-12-07 15:02] LABS: Add Urine Microscopic? NO; Appearance Urine Clear (Clear); Bilirubin Urine Negative (Negative); Blood Urine Negative (Negative); Color Urine Straw (Yellow); Glucose Urine UA Negative (Negative); Ketones Urine Negative (Negative); Leukocyte Esterase Ur Negative LEU/UL (Negative); Nitrate Urine Negative (Negative); Protein Urine Negative (Negative); Urobilinogen Urine Negative mg/dL (<2.0)
[2020-12-07 15:20] LABS: Specific Grav Ur 1.038 (1.001-1.035)
[2020-12-07] MEDS: metroNIDAZOLE 500 MG/ISO 100ML 500 MG/100 ML BAG 100 MG IVPB (15:20)
[2020-12-07 15:24] VITALS: BP 150/89; PULSE 87; RESP 16; O2SAT 99
--- NOTE | 2020-12-07 20:39 | ADMGEN ---
This patient, Yaquelin Lee, was admitted to 3 [facility] Surg Room 323-01. Patient/family oriented to hospital policies and general routines including ID bracelet, bed and alarms, visiting hours, pain management, procedures, bathroom and other care routines, personal items, smoking policy, room service/diet, and visiting hours. Information on how to activate the Rapid Response Team has been discussed. Patient/Family are encouraged to report perceived risks to care and to ask questions if they do not understand what they are told or what they should do.
[2020-12-07 21:11] LABS: Hemoglobin 13.2 g/dL (12.0-15.0)
[2020-12-07 22:00] VITALS: BP 138/86; BP 141/74; BP 147/82; PULSE 89; RESP 18; TEMP 36.4; O2SAT 100
[2020-12-07] MEDS: SODIUM CHLORIDE 0.9% IV 1,000 ML 100 ML IV CONT (22:46)
[2020-12-08] MEDS: metroNIDAZOLE 500 MG/ISO 100ML 500 MG/100 ML BAG 100 MG IVPB ×2 (05:35→13:33)
[2020-12-08 06:00] VITALS: BP 154/79; PULSE 87; RESP 18; TEMP 37.1; O2SAT 99
[2020-12-08 07:26] LABS: Hematocrit 35.3 % (37.0-47.0); Hemoglobin 11.6 g/dL (12.0-15.0); Mean Corpuscular HGB Conc 32.9 g/dl (32-36); Mean Corpuscular Hemoglobin 33.6 pg (26-34); Mean Corpuscular Volume 102.3 fl (80-100); Mean Platelet Volume 10.7 fl (7.4-10.4); Platelet Count Result 206 k/mm3 (150-375); Red Blood Count 3.45 M/mm3 (4.2-5.4); Red Cell Distribution Width 12.4 % (11.5-14.5); White Blood Count 9.8 K/mm3 (4.5-10.0)
[2020-12-08] MEDS: PANTOPRAZOLE 40 MG TABLET PO (07:46)
[2020-12-08] MEDS: lisinopriL 20 MG TABLET 40 MG PO (07:47)
[2020-12-08] MEDS: CHOLECALCIFEROL 1,000 UNITS TABLET 1000 UNITS PO (07:47)
[2020-12-08] MEDS: amLODIPine BESYLATE 5 MG TABLET 10 MG PO (07:47)
[2020-12-08] MEDS: ATORVASTATIN 10 MG TABLET PO (07:47)
[2020-12-08 08:00] VITALS: O2SAT 99
[2020-12-08 08:05] LABS: Alanine Aminotransferase 17 U/L (4-35); Albumin Level 3.8 g/dL (3.5-5.1); Alkaline Phosphatase 88 U/L (38-126); Anion Gap 6 mmol/L (8-16); Aspartate Amino Transferase 24 U/L (14-36); Bilirubin,Total 0.5 mg/dL (0.2-1.3); Blood Urea Nitrogen 9 mg/dL (7-17); Calcium 8.8 mg/dL (8.4-10.2); Carbon Dioxide 26 mmol/L (22-30); Chloride 106 mmol/L (98-107); Estimated CRCL calculation 48 ml/min; Estimated Glomerular Filt Rate > 60; Glucose 109 mg/dL (65-110); Magnesium 1.7 mg/dL (1.6-2.3); Potassium 3.5 mmol/L (3.4-5.0); Sodium 138 mmol/L (137-145)
[2020-12-08 10:13] LABS: Hematocrit 37.9 % (37.0-47.0); Hemoglobin 12.5 g/dL (12.0-15.0)
[2020-12-08 14:00] VITALS: BP 121/62; PULSE 94; RESP 18; TEMP 36.4; O2SAT 100
--- NOTE | 2020-12-08 14:17 | PM.DS ---
DS: Admitting Diagnosis Admitting Diagnosis Bloody stools DS: Discharge Diagnosis Discharge Diagnosis (1) Colitis: Code(s): K52.9 - Noninfective gastroenteritis and colitis, unspecified Status: Acute Assessment and Plan: The patient is a 75-year-old female with a history of hypertension, dyslipidemia, GERD, who presented to the emergency room with bloody stools. Patient states she was having some abdominal discomfort on 12/06/20 in started eating a bland diet at home. Then around 2:00 a.m. on 12/07/2020 she went to the bathroom and had a large bowel movement with bright red blood in her stool with associated lightheadedness. She continued to have diarrhea and bloody stools at home and finally around noon she decided to come to the emergency room for further evaluation. Initial vitals showed slight hypertension with blood pressure to 132/102, slight tachycardia at 108 beats per minute, normal respiratory rate oxygenation on room air, afebrile. Initial labs showed slight leukocytosis at 12,000, normal neutrophil count, normal H&H with hemoglobin of 13, hematocrit 30%. Slight hyponatremia at 136, normal renal function, normal lactic acid level, normal LFTs, urinalysis showing no acute signs of infection. CT abdomen pelvis showed colitis involving the descending and sigmoid colon. Differential diagnosis includes infection versus ischemic colitis. She has a stable 4.0 cm fusiform aneurysm of the infrarenal aorta. She was admitted into the hospital for IV fluid hydration, IV antibiotics for colitis infection. Patient states she is feeling completely back to normal today. She had a very small amount of bright red stools at 7:00 a.m. today. She denies any nausea, vomiting, abdominal pain, lightheadedness, dizziness. She really wants to go home at this time. She says she has has multiple bouts of colitis in the past and she is feeling back to her baseline now other than having a lot of gas. Most likely viral infection due to sudden onset. Ischemic colitis less likely given normal lactic acid level and blood pressures that have been running on the higher side. At this time she is tolerating a regular diet without any issues. Her H&H is completely stable with a hemoglobin 12.5 and 37%. I did call the GI specialist on-call Dr. Cooper and informed him of the patient. He feels comfortable with her going home at this time in following up in the office in 1 week. She will be discharged home with oral antibiotics including Flagyl and cefdinir for 10 days. Will give probiotic to prevent diarrhea associated with antibiotic use. Return to ER warnings given. Follow-up warnings given. Patient understands and agrees the plan all questions answered. patient did have a colonoscopy in 2018 which showed diverticulosis and internal hemorrhoids. Acute bleeding could be from diverticulosis but it has since subsided and she has no more signs of bleeding. (2) Rectal bleeding: Code(s): K62.5 - Hemorrhage of anus and rectum Status: Acute (3) Hypertension: Qualifiers: Hypertension type: essential hypertension Qualified Code(s): I10 - Essential (primary) hypertension Code(s): I10 - Essential (primary) hypertension Status: Acute Assessment and Plan: Blood pressure stable at this time. Continue home medications. DS: Summary Hospital Course Hospital Course: See above Status at Discharge Cognitive/behavioral status at discharge: Stable, improved. Time Spent with Patient Time attestation: Total time spent providing and/or coordinating discharge services: 42 Time spent: Greater than 30 minutes Exam Narrative: General: 75-year-old woman sitting up in bed watching TV. Appears comfortable. In no acute distress. Skin: No jaundice or cyanosis. Good skin turgor. Neck: Full range of motion. Supple. Respiratory: Lungs are clear to auscultat
== END 2020-12-08 16:38 | disposition home or self-care (01) | DRG 391 ==
LOC: ANHED 13:45 → ANH3MEDSUR 18:13
PROVIDERS: Physician Assistant; Admitting Provider Internal Medicine; Emergency Provider General Practice; PCP Internal Medicine; Visit Provider Internal Medicine
DX: A08.4 Viral intestinal infection, unspecified (principal); K57.31 Diverticulosis of large intestine without perforation or abscess with bleeding; E87.1 Hypo-osmolality and hyponatremia; I10 Essential (primary) hypertension; M19.90 Unspecified osteoarthritis, unspecified site; M85.80 Other specified disorders of bone density and structure, unspecified site; E78.5 Hyperlipidemia, unspecified; K21.9 Gastro-esophageal reflux disease without esophagitis; K57.90 Diverticulosis of intestine, part unspecified, without perforation or abscess without bleeding; J44.9 Chronic obstructive pulmonary disease, unspecified; I71.4 Abdominal aortic aneurysm, without rupture; Z85.3 Personal history of malignant neoplasm of breast; Z87.891 Personal history of nicotine dependence; Z98.42 Cataract extraction status, left eye; Z98.41 Cataract extraction status, right eye; Z90.710 Acquired absence of both cervix and uterus
CPT/HCPCS: 36415; 74177; 80053; 81003; 83605; 83735; 85014; 85018; 85025; 85027; 85610; 85730; 86850; 86900; 86901; 93005; 96361; 96365; 96367; 99285; A9270; J0696; J7030; Q9967

== ENCOUNTER 2021-05-28 13:40 | Observation (INO) | payer MEDICARE, SELFPAY ==
[2021-05-28] VITALS (8 sets, daily range): BP systolic 142–158; BP diastolic 79–112; PULSE 78–98; RESP 12–18; TEMP 36.2–36.7; O2SAT 97–100; BMI 24.7
--- NOTE | ~2021-05-28 | MR_ITS ---
EXAMINATION: MR brain/brain stem wo con DATE: 05/29/2021 10:59 INDICATION: Aphasia. TECHNIQUE: Magnetic resonance imaging (MRI) of the brain and brainstem was performed without intraven ous contrast. Sequences included sagittal and axial T1-weighted FSE, axial diffusion-weighted FS EPI, axial T2*-weighted GRE, axial T2-weighted FLAIR Propeller, and axial T2-weighted Propeller. Apparent diffusion coefficient (ADC) maps were created. COMPARISON: Head CT 05/28/2021 FINDINGS: There are scattered areas of nonspecific increased T2-weighted signal intensity in the cere bral white matter. There is no intracranial hemorrhage, acute infarction, or abnormal intracranial ma ss lesion. The ventricles are normal in size. There are likely changes of ocular lens replacement karey geries. The paranasal sinuses are clear. The mastoid air cells are normal. IMPRESSION: 1. Moderate nonspecific cerebral white matter disease, which likely represents chronic small vessel i schemic disease. Reviewed, dictated and finalized at location A. HER IMPRESSION: 1. Moderate nonspecific cerebral white matter disease, which likely represents chronic small vessel ischemic disease.
--- NOTE | ~2021-05-28 | CT_ITS ---
EXAMINATION: CTA brain carotid DATE: 05/28/2021 15:00 INDICATION: Aphasia. TECHNIQUE: Computed tomographic angiography (CTA) of the head was performed without and with 100 mL O mnipaque-350 intravenous contrast. CTA of the neck was performed with intravenous contrast. Automated exposure control and iterative reconstruction technique were employed. The dose-length product was 1 732.57 mGy-cm. Maximum intensity projection and volume rendered 3D-reconstructions were created by jael butterfield technologist on a separate workstation. COMPARISON: None. FINDINGS: HEAD CTA: There are scattered areas of low attenuation in the cerebral white matter. There is no intr acranial hemorrhage, acute infarction, or abnormal intracranial mass lesion. The ventricles are ale l in size. The paranasal sinuses are clear. There are likely changes of ocular lens replacement surge dereck. The mastoid air cells are normal. The vertebral arteries are codominant. There is no significan t stenosis of basilar artery or the posterior cerebral arteries. The posterior communicating arteries are normal. There is no significant stenosis of the intracranial internal carotid arteries or anteri or or middle cerebral arteries. Right A1 anterior cerebral artery segment is absent, a normal variant . Anterior communicating artery is normal. There is no aneurysm. NECK CTA: There is mild emphysema. There are nodules in the thyroid measuring up to 7 mm, likely not clinically significant. There are no pathologically enlarged lymph nodes. There is no significant rudi nosis of the vertebral arteries. There is mild plaque in the proximal internal carotid arteries. Ther e is 0% stenosis of the proximal right internal carotid artery relative to normal distal artery lumen diameter (NASCET criteria). There is 0% stenosis of the proximal left internal carotid artery relati ve to normal distal artery lumen diameter. There is severe cervical spondylosis. IMPRESSION: 1. Moderate nonspecific cerebral white matter disease, which likely represents chronic small vessel i schemic disease 2. No aneurysm or significant intracranial arterial stenosis. 3. 0% stenosis of the proximal internal carotid arteries relative to normal distal artery lumen diame ters (NASCET criteria). Reviewed, dictated and finalized at location A. ICAL BLENDER IMPRESSION: 1. Moderate nonspecific cerebral white matter disease, which likely represents chronic small vessel ischemic disease 2. No aneurysm or significant intracranial arterial stenosis. 3. 0% stenosis of the proximal internal carotid arteries relative to normal dis jayson artery lumen diameters (NASCET criteria).
--- NOTE | ~2021-05-28 | XR_ITS ---
EXAMINATION: XR chest 2V DATE: 05/28/2021 14:05 INDICATION: Generalized chest pain. Speech impairment. TECHNIQUE: Frontal and lateral views of the chest were obtained. COMPARISON: Chest single view 08/25/2020, chest CT 08/25/2020 FINDINGS: The chest demonstrates clear lungs without pneumonia, pleural effusion, or pneumothorax. Th e heart size is normal. IMPRESSION: 1. No acute cardiopulmonary disease. Reviewed, dictated and finalized at location A. ETRICS GYN PHYSICIAN
--- NOTE | 2021-05-28 13:53 | ECG_ITS ---
Measurements Intervals Sledge Rate: 94 P: 48 NV: 134 QRS: 77 QRSD: 83 T: 59 QT: 344 QTc: 431 Interpretive Statements SINUS RHYTHM BASELINE WANDER- V3 NORMAL ECG Electronically Signed On 05-28-2021 18:24:50 ENOLOGIST by Siva Davis D.O.
[2021-05-28] MEDS: ASPIRIN 81 MG CHEWABLE TABLET 324 MG PO (14:19)
[2021-05-28 14:22] LABS: Basophils Absolute Auto 0.1 K/mm3 (0.0-0.1); Basophils Percent Auto 0.7 % (0.2-1.2); Eosinophils Absolute Auto 0.1 K/mm3 (0-0.3); Eosinophils Percent Auto 1.5 % (0-4.4); Hematocrit 37.5 % (37.0-47.0); Hemoglobin 12.9 g/dL (12.0-15.0); Immature Granulocyte Absolute 0.04 K/mm3 (0.00-0.031); Immature Granulocyte Percent A 0.5 % (0-0.5); Mean Corpuscular HGB Conc 34.4 g/dl (32-36); Mean Corpuscular Hemoglobin 33.2 pg (26-34); Mean Corpuscular Volume 96.4 fl (80-100); Mean Platelet Volume 10.2 fl (7.4-10.4); Monocytes Absolute Auto 0.6 K/mm3 (0.1-0.6); Monocytes Percent Auto 7.4 % (2.6-8.5); Neutrophils Absolute Auto 5.4 K/mm3 (1.3-6.7); Neutrophils Percent Auto 63.9 % (45.5-73.1); Platelet Count Result 214 k/mm3 (150-375); Red Blood Count 3.89 M/mm3 (4.2-5.4); Red Cell Distribution Width 12.9 % (11.5-14.5); White Blood Count 8.5 K/mm3 (4.5-10.0)
--- NOTE | 2021-05-28 14:24 | ED.NEUROSD ---
HPI - Neuro Symptoms/Deficit General Chief Complaint: Neuro Symptoms/Deficit Stated Complaint: TIA Sx Time Seen by Provider: 05/28/21 13:44 Source: patient Mode of arrival: ambulatory Limitations: no limitations History of Present Illness HPI Narrative: Patient is a 76-year-old female complaining of aphasia accompanied by right upper extremity numbness that lasted for approximately 20 minutes yesterday around 2 PM, single episode, has not recurred since. Patient denies any visual disturbance, headache, dizziness, focal weakness, or unsteady gait. Patient also complained of chest pain that started today, midsternal, tightness, mild, nonradiating. Patient denies any shortness of breath, abdominal pain, nausea, vomiting, diaphoresis, fever or chills. Related Data Home Medications Medication Instructions Recorded Confirmed lansoprazole [Prevacid] 15 mg PO DAILY 02/24/19 12/11/20 cholecalciferol (vitamin D3) 25 1,000 unit PO DAILY 05/02/19 12/11/20 mcg (1,000 unit) capsule Caltrate 600 plus D 1 tablet PO DAILY 12/07/20 12/11/20 multivitamin 1 tablet PO DAILY 12/11/20 12/11/20 Allergies Allergy/AdvReac Type Severity Reaction Status Date / Time adhesive Allergy Unknown Rash Verified 05/28/21 13:51 Penicillins Allergy Unknown Rash Verified 05/28/21 13:51 poison carol extract Allergy Unknown Rash Verified 05/28/21 13:51 Sulfa (Sulfonamide Allergy Unknown Rash Verified 05/28/21 13:51 Antibiotics) SKIN GLUE Allergy Unknown RASH Uncoded 01/07/21 13:28 ITCHING. Review of Systems Review of Systems: All systems reviewed & are unremarkable except as noted in HPI and below Constitutional: Constitutional: Denies body ache(s), Denies chills, Denies excessive sweating, Denies fatigue, Denies fever(s), Denies headache(s), Denies lethargy, Denies malaise, Denies weakness and Denies weight loss Eyes: Eyes: Denies blurry vision, Denies change in vision and Denies loss of vision ENT: Denies dizziness, Denies ear discharge, Denies headache(s), Denies lip swelling, Denies epistaxis, Denies nasal congestion, Denies neck pain, Denies throat swelling and Denies tongue swelling Cardiovascular: Cardiovascular: Denies diaphoresis, Denies rapid heart rate, Denies edema, Denies irregular heart rhythm, Denies lightheadedness, Denies palpitations, Denies dyspnea and Denies dyspnea on exertion Respiratory: Respiratory: Denies chest congestion, Denies cough, Denies hemoptysis, Denies dyspnea and Denies dyspnea on exertion Gastrointestinal: Gastrointestinal: Denies abdominal pain, Denies melena, Denies hematochezia, Denies diarrhea, Denies nausea, Denies vomiting and Denies hematemesis Musculoskeletal: Musculoskeletal: Denies abnormal gait, Denies deformity, Denies joint swelling, Denies limited range of motion, Denies neck pain and Denies numbness Neurologic: Denies abnormal gait, Denies confusion, Denies dizziness, Denies headache(s), Denies focal weakness, Denies loss of vision, Denies Other visual disturbances, Denies Sensory deficit (Neuro) and Denies weakness Psychiatric: Psychiatric: Denies confusion, Denies depression, Denies auditory hallucinations, Denies homicidal ideation and Denies suicidal ideation Endocrine: Endocrine: Denies cold intolerance, Denies excessive sweating, Denies fatigue, Denies heat intolerance and Denies palpitations Hematologic/Lymphatic: Hematologic/Lymphatic: Denies easy bleeding and Denies easy bruising Allergic/Immunologic: Allergic/Immunologic: Denies lip swelling, Denies throat swelling and Denies tongue swelling PMFSH Past Medical History Medical History Aneurysm of infrarenal abdominal aorta Stable 4.0 cm fusiform aneurysm on CT of the abdomen and pelvis dated 12/07/2020. Breast cancer Status post radiation therapy and lumpectomy with subsequent bilateral mastectomy. Chronic obstructive pulmonary disease Colitis Diverticulosis Former smoker Gastroesophagea
[2021-05-28 14:31] LABS: Prothrombin Time 12.8 Seconds (11.1-14.7)
[2021-05-28 14:40] LABS: Alanine Aminotransferase 19 U/L (4-35); Albumin Level 4.2 g/dL (3.5-5.1); Alkaline Phosphatase 92 U/L (38-126); Anion Gap 7 mmol/L (8-16); Aspartate Amino Transferase 26 U/L (14-36); Bilirubin,Total 0.4 mg/dL (0.2-1.3); Blood Urea Nitrogen 15 mg/dL (7-17); Calcium 9.4 mg/dL (8.4-10.2); Carbon Dioxide 25 mmol/L (22-30); Chloride 109 mmol/L (98-107); Estimated CRCL calculation 35 ml/min; Estimated Glomerular Filt Rate 48; Glucose 146 mg/dL (65-110); Lipase 173 U/L (23-300); Potassium 3.8 mmol/L (3.4-5.0); Sodium 141 mmol/L (137-145)
[2021-05-28 14:52] LABS: Troponin I < 0.012 ng/mL (0.000-0.034)
--- NOTE | 2021-05-28 16:06 | PC.NURSE ---
1500 Report received from DEEPTHI Najera
--- NOTE | 2021-05-28 16:12 | PM.IMHP ---
H&P: HPI History of Present Illness Date/Time: 05/28/21 16:12 This pleasant 76 year old patient with significant PMH of Breast CA with bilateral mastectomy in 2016 and radiation treatment thereafter, none recent, HTN, HLD, Diverticulitis, GERD, OA, Osteoporosis, shingles and COPD without current medication treatment. She ceased smoking two years ago. The pt. has no previous Cardiac or Neurological history. She endorses that she was sitting at home yesterday and was not engaging in any activity, when all of a sudden she started to speak and could not form her words. In addition, she had some numbness in her right hand. This lasted in it's entirety approximately 20 minutes then spontaneously resolved. She denies any history of CP with the aphasia incident, and no dyspnea or dizziness/Headache. Today she was at home, and just as other times previous she notes, she had a pressure in the center of her chest without radiation and without any dyspnea, diaphoresis, nausea or vomiting. She presented independently ambulatory to the ER and was given an ASA and CTA of head and neck was negative for any acute findings. Currently she continues to endorse midsternal chest pressure that is worse with movement and nothing thus far has made better. She denies any feelings of Dyspnea, N/V/Diaphoresis/dizziness/headache. She is being admitted to the hospital for a complete cardiac rule out as well as for possible TIA. Cardiac history was reviewed in the chart and as noted EKG from today is unchanged from the one performed 12/07/2020 and shows NSR with a rate of 94 today. There is no ectopy or ischemia noted. In addition, the pt. had an exercise stress ECHO at [facility] 09/30/2020 and it was a negative exercise stress test for ischemia. There is no found ECHO on file. Chief Complaint: Chest Pain Review of Systems Review of Systems: Midsternal Chest pressure that she rates a 3/10. All systems reviewed & are unremarkable except as noted in HPI and below [facility] Past Medical History Medical History Aneurysm of infrarenal abdominal aorta Stable 4.0 cm fusiform aneurysm on CT of the abdomen and pelvis dated 12/07/2020. Breast cancer Status post radiation therapy and lumpectomy with subsequent bilateral mastectomy. Chronic obstructive pulmonary disease Colitis Diverticulosis Former smoker Gastroesophageal reflux disease Hyperlipidemia Hypertension Osteoarthritis Osteopenia Shingles (08/2020) Surgical History Surgical History History of bilateral mastectomy (04/2016) History of colonoscopy 2018 History of hysterectomy History of lumpectomy of left breast (07/2009) History of lumpectomy of right breast (11/2014) Status post cataract extraction of both eyes with insertion of intraocular lens (2014) Family History Family History Father Family history of malignant neoplasm of brain Family history of diabetes mellitus in first degree relative Malignant neoplasm of prostate Diabetes mellitus Mother Hypertension Patient's mother is Sibling Hypertension Patient's sister is in good health Family history of diabetes mellitus in first degree relative Diabetes mellitus Family history of malignant neoplasm of urinary bladder Family history of chronic obstructive pulmonary disease Other Family history of allergic disorder Family history of cardiovascular disease Social History Social History Social History: The patient is and lives with her in [place]. She has no children. 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 Smoked 0.5 packs of cigarettes a day for many years and quit in early 2019. No alcohol or illicit substance abuse. She designates her or her sister, Phyllis Laguerre, as her surrogate de
--- NOTE | 2021-05-28 16:33 | PC.NURSE ---
Patient given food tray.
[2021-05-28 16:53] LABS: Troponin I < 0.012 ng/mL (0.000-0.034)
[2021-05-28 17:54] LABS: Thyroid Stimulating Hormone 0.033 uIU/mL (0.465-4.680)
--- NOTE | 2021-05-28 18:23 | ADMGEN ---
This patient, Yaquelin Lee, was admitted to [facility]. Patient/family oriented to hospital policies and general routines including ID bracelet, bed and alarms, visiting hours, pain management, procedures, bathroom and other care routines, personal items, smoking policy, room service/diet, and visiting hours. Information on how to activate the Rapid Response Team has been discussed. Patient/Family are encouraged to report perceived risks to care and to ask questions if they do not understand what they are told or what they should do. PATIENT IS LYING IN BED AT THIS MOMENT, ASSESSMENT HAS BEGAN AND IS NOTED, ALERT AND ORIENTED XS 4, CONINENT XS 2 NOTED, TRANSFERED TO BED FROM WHEELCHAIR SAFELY, MAINTAIN ADEQUATE GAIT, NO DISTRESS NOTED, VITALS NOTED, ORIENTED TO ROOM AND FACILTY.
[2021-05-28 21:19] LABS: Troponin I < 0.012 ng/mL (0.000-0.034)
[2021-05-29] VITALS (8 sets, daily range): BP systolic 135–159; BP diastolic 79–90; PULSE 76–98; RESP 15–19; TEMP 36.1–36.7; O2SAT 93–97
--- NOTE | 2021-05-29 | ECHO_ITS ---
Patient Info Name: Yaquelin Lee Age: 76 years : 1945 Gender: Female Ht: 60 in Wt: 163 lbs BSA: 1.80 m2 HR: 800 bpm BP: 159 / 86 mmHg Heart Rhythm: Sinus Rhythm Technical Quality: Fair Exam Date: 05/29/2021 8:50 AM Exam Location: [facility] Card Pulmonary Patient Status: Inpatient Admit Date: 05/28/2021 Staff Ordering Physician: Yaquelin Chang Occup Therapist: Cristine Fernandez RDCS Attending Provider: Papo Johansen MD Referring Physician: Bernardo BOWEN; Exam Type: CA echo doppler color flow Study Info Indications - CHEST PAIN, QUESTIONABLE TIA Complete two-dimensional, color flow and Doppler transthoracic echocardiogram is performed. Summary 1. Complete two-dimensional, color flow and Doppler transthoracic echocardiogram is performed. 2. Normal left and right ventricular systolic function. 3. No valvular abnormalities. 4. Prominent eustachian valve noted in the right atrium( no clinical significance). Left Ventricle Left ventricular chamber dimension is normal. Left ventricular systolic function is normal, estimated at 60-65%. The left ventricular diastolic function is normal. Right Ventricle Right ventricular chamber dimension is normal. Left Atria Left atrial chamber dimension is normal. Right Atria Right atrial chamber dimension is normal. Aortic Valve The aortic valve is normal. Pulmonic Valve The pulmonic valve is normal. Mitral Valve The mitral valve has normal leaflets. Tricuspid Valve The tricuspid valve leaflets are normal. Pericardium/Pleural The pericardium appears normal. Aorta The aortic root size at the sinus of Valsalva is normal. Left Ventricular Outflow Tract Name Value Normal LVOT 2D LVOT Diameter 2.0 cm LVOT Doppler LVOT Peak Gradient 4 mmHg LVOT Mean Gradient 2 mmHg LVOT VTI 19 cm LVOT VTI/AV VTI Ratio 0.8 LVOT Stroke Volume 59 ml LVOT CO 4.5 l/min LVOT CI 2.5 l/min/m2 Pulmonic Valve Name Value Normal RVOT Doppler RVOT Peak Gradient 2 mmHg PV Doppler PV Peak Gradient 3 mmHg Mitral Valve Name Value Normal MV Doppler MV Decel Stanley 415 cm/s2 MV PHT 52 ms MV Area (PHT) 4.2 cm2 4.0-5.0 MV Di
[2021-05-29 05:47] LABS: Basophils Absolute Auto 0.1 K/mm3 (0.0-0.1); Basophils Percent Auto 0.7 % (0.2-1.2); Eosinophils Absolute Auto 0.2 K/mm3 (0-0.3); Eosinophils Percent Auto 2.7 % (0-4.4); Hematocrit 35.3 % (37.0-47.0); Hemoglobin 11.6 g/dL (12.0-15.0); Immature Granulocyte Absolute 0.02 K/mm3 (0.00-0.031); Immature Granulocyte Percent A 0.2 % (0-0.5); Lymphocytes Absolute Auto 2.91 K/mm3 (0.9-3.2); Lymphocytes Percent Auto 35.1 % (18.3-44.2); Mean Corpuscular HGB Conc 32.9 g/dl (32-36); Mean Corpuscular Hemoglobin 33.2 pg (26-34); Mean Corpuscular Volume 101.1 fl (80-100); Mean Platelet Volume 10.4 fl (7.4-10.4); Monocytes Absolute Auto 0.9 K/mm3 (0.1-0.6); Monocytes Percent Auto 10.8 % (2.6-8.5); Neutrophils Absolute Auto 4.2 K/mm3 (1.3-6.7); Neutrophils Percent Auto 50.5 % (45.5-73.1); Platelet Count Result 200 k/mm3 (150-375); Red Blood Count 3.49 M/mm3 (4.2-5.4); Red Cell Distribution Width 13.1 % (11.5-14.5); White Blood Count 8.3 K/mm3 (4.5-10.0)
[2021-05-29 06:04] LABS: Alanine Aminotransferase 18 U/L (4-35); Albumin Level 3.8 g/dL (3.5-5.1); Alkaline Phosphatase 84 U/L (38-126); Anion Gap 7 mmol/L (8-16); Aspartate Amino Transferase 24 U/L (14-36); Bilirubin,Total 0.4 mg/dL (0.2-1.3); Blood Urea Nitrogen 20 mg/dL (7-17); Calcium 9.3 mg/dL (8.4-10.2); Carbon Dioxide 26 mmol/L (22-30); Chloride 104 mmol/L (98-107); Estimated CRCL calculation 41 ml/min; Estimated Glomerular Filt Rate 48; Glucose 105 mg/dL (65-110); Magnesium 1.9 mg/dL (1.6-2.3); Potassium 3.9 mmol/L (3.4-5.0); Sodium 137 mmol/L (137-145)
[2021-05-29] MEDS: ATORVASTATIN 10 MG TABLET PO (08:23)
[2021-05-29] MEDS: ENOXAPARIN 40 MG/0.4 ML SYRINGE SUB-Q (08:23)
[2021-05-29] MEDS: amLODIPine BESYLATE 5 MG TABLET 10 MG PO (08:23)
[2021-05-29] MEDS: ASPIRIN 81 MG CHEWABLE TABLET PO (08:23)
[2021-05-29] MEDS: lisinopriL 20 MG TABLET 40 MG PO (08:23)
--- NOTE | 2021-05-29 13:23 | PM.CNCAR ---
Assessment and Plan Additional Plan This is a 76-year-old lady who experienced typical symptoms of a TIA on Tuesday of this week. Those symptoms have resolved and neurological evaluation subsequently has been unremarkable. She has been appropriately placed on aspirin therapy. Regarding her chest pain. She has this mild sense of pressure in the center of her chest unremittingly for several years. There is no feature of this complaint that sounds like myocardial ischemia. She reports that a stress test was done in evaluation of this about a year and a half ago which was a negative exam. At this time I do not have any cardiac reason she needs to remain in the hospital. Follow-up can be with her PCP. I believe she can be discharged at this time. Shreyas Temple MD [facility] History of Present Illness History of Present Illness Consult date/time: 05/29/21 13:23 Reason For Visit: chest pain,tia Narrative: This is a 76-year-old woman I am seeing at the request of the hospitalist today because of chest pain. The patient is in room 2 of the chest pain center is comfortable cooperative and has no complaints at this time. She says that she came to the hospital yesterday because of symptoms that were consistent with a TIA event that occurred on Tuesday. The patient states she was in her usual state of good health were suddenly on Tuesday she had difficulty expressing and finding words. She at the same time she had some numbness in 3 fingers of her right hand. The symptoms began while she was at home. She states that her parents had TIAs many years ago and she and her both recognize that this is probably what was going on. They took some aspirin her watch this for a while and she says in about 20 or 30 minutes and resolved. Interestingly they did not come to the hospital or contact the physician at that time. They decided to call the doctor's office yesterday and when the practitioners were made aware of this they directed her to the emergency room for evaluation where she was admitted to the hospital. She has not had any of these complaints since the event on Tuesday and was surprised actually that she was put into the hospital. Regarding chest pain she says she has a mild constant sense of tightness in the center of her chest it has been there for at least several years. She indicated the symptoms to her PCP who a couple of years ago had her do an exercise stress test that she was told was negative. She does not indicate that that symptom was of concern to her when she came into the hospital yesterday and it has not gotten worse there is no relationship to physical activity body position or meals. There is no radiation of this pain to any other location and her electrocardiogram is unremarkable her troponin levels are also normal x3 sets. Review of Systems Constitutional: Constitutional: Reports no additional constitutional complaints Eyes: Eyes: Reports no additional eye complaints ENT: Reports system reviewed and no additional complaints, except as documented Cardiovascular: Cardiovascular: Reports no additional cardiovascular complaints Respiratory: Respiratory: Reports no additional respiratory complaints Gastrointestinal: Gastrointestinal: Reports no additional gastrointestinal complaints Musculoskeletal: Musculoskeletal: Reports no additional musculoskeletal complaints Integumentary/Breasts: Skin/Breast: Reports system reviewed and no additional complaints, except as docu Neurologic: Reports as per HPI Endocrine: Endocrine: Reports no additional endocrine complaints Hematologic/Lymphatic: Hematologic/Lymphatic: Reports no additional hematologic/lymphatic complaints Allergic/Immunologic: Allergic/Immunologic: Reports no additional allergic/immunologic complaints [facility] Past Medical History Medical History Aneurysm of infrarenal abdominal aorta Stabl
--- NOTE | 2021-05-29 14:38 | PM.DS ---
DS: Admitting Diagnosis Discharge Date 05/29/2021 Admitting Diagnosis (1) Chest pain at rest: (2) TIA (transient ischemic attack): (3) Gastroesophageal reflux disease: (4) Hypertension: (5) Hyperlipidemia: DS: Discharge Diagnosis Discharge Diagnosis (1) Chest pain at rest: Onset Date: ~05/28/21 Code(s): R07.9 - Chest pain, unspecified Status: Acute Assessment and Plan: - Initial troponin negative. Will trend two more and watch for any increase. - Cardiac history reviewed. Pt. with negative exercise stress test in 09/2020 at [facility] - Consult Cardiology for co-management. Appreciate recs. - Check TSH and Mag - telemetry - Obtain Echo. - In ED there is negative CTA of brain and neck. - Morphine for severe pain - Oxygen prn - Continue current hypertensive management. - NPO until cardiac evaluation. (2) TIA (transient ischemic attack): Onset Date: 05/27/21 Code(s): G45.9 - Transient cerebral ischemic attack, unspecified Status: Acute Assessment and Plan: - See Cardiac concern orders as above. - Initial troponin negative. Will trend two more and watch for any increase. - Cardiac history reviewed. Pt. with negative exercise stress test in 09/2020 at [facility] - Consult Cardiology for co-management. Appreciate recs. - Check TSH and Mag - telemetry - Obtain Echo. - In ED there is negative CTA of brain and neck. - Morphine for severe pain - Oxygen prn - NIH score of zero on initial Hospitalist assessment. - Non-focal neurological exam. - CTA of brain and neck negative. Will obtain MRI of brain without. - Continue current hypertensive management. - Continue Statin, and asa has been added. (3) Gastroesophageal reflux disease: Onset Date: Unknown Qualifiers: Esophagitis presence: without esophagitis Qualified Code(s): K21.9 - Gastro-esophageal reflux disease without esophagitis Code(s): K21.9 - Gastro-esophageal reflux disease without esophagitis Status: Chronic Assessment and Plan: - Protonix 40 mg IVP BID (4) Hypertension: Onset Date: Unknown Qualifiers: Hypertension type: essential hypertension Qualified Code(s): I10 - Essential (primary) hypertension Code(s): I10 - Essential (primary) hypertension Status: Chronic Assessment and Plan: - Continue Amlodipine 10 mg po daily. - Continue Quinapril 40 mg po daily. - Continue to monitor. Intially elevated in ER, but now normotensive. - prn Hydralazine ordered. (5) Hyperlipidemia: Onset Date: Unknown Qualifiers: Hyperlipidemia type: unspecified Qualified Code(s): E78.5 - Hyperlipidemia, unspecified Code(s): E78.5 - Hyperlipidemia, unspecified Status: Chronic Assessment and Plan: - Continue statin of Atorvastatin 10 mg po daily. - Consider increasing statin at discharge as per recommendations for possible TIA/CVA. DS: Summary Hospital Course Reason for hospitalization: Chest pain. Hospital Course: Please refer to admission H and P. Briefly, this is a pleasant 76 year old patient with significant PMH of Breast CA with bilateral mastectomy in 2016 and radiation treatment thereafter, none recent, HTN, HLD, Diverticulitis, GERD, OA, Osteoporosis, shingles and COPD without current medication treatment. She ceased smoking two years ago. The pt. has no previous Cardiac or Neurological history. She endorses that she was sitting at home yesterday and was not engaging in any activity, when all of a sudden she started to speak and could not form her words. In addition, she had some numbness in her right hand. This lasted in it's entirety approximately 20 minutes then spontaneously resolved. She denies any history of CP with the aphasia incident, and no dyspnea or dizziness/Headache. Today she was at home, and just as other times previous she notes, she had a pressure in the center of her chest without radiation and without any d
== END 2021-05-29 15:05 | disposition home or self-care (01) ==
LOC: ANHED 15:33 → ANHCPC 05-29 11:34
PROVIDERS: Nurse Practitioner Adult Health; Admitting Provider Internal Medicine; Emergency Provider Emergency Medicine; PCP Internal Medicine; Visit Provider Internal Medicine
DX: G45.9 Transient cerebral ischemic attack, unspecified (principal); R07.9 Chest pain, unspecified; R47.01 Aphasia; I71.4 Abdominal aortic aneurysm, without rupture; J44.9 Chronic obstructive pulmonary disease, unspecified; K21.9 Gastro-esophageal reflux disease without esophagitis; I10 Essential (primary) hypertension; E78.5 Hyperlipidemia, unspecified; M19.90 Unspecified osteoarthritis, unspecified site; M85.80 Other specified disorders of bone density and structure, unspecified site; Z85.3 Personal history of malignant neoplasm of breast; Z92.3 Personal history of irradiation; Z90.13 Acquired absence of bilateral breasts and nipples; R29.700 NIHSS score 0; Z87.891 Personal history of nicotine dependence
CPT/HCPCS: 36415; 70496; 70498; 70551; 71046; 80053; 83690; 83735; 84443; 84484; 85025; 85610; 85730; 93005; 93306; 96372; 99285; A9270; G0378; J1650; Q9967

== ENCOUNTER 2021-09-30 09:02 | Outpatient (CLI) | payer MEDICARE, SELFPAY ==
--- NOTE | ~2021-09-30 | US_ITS ---
EXAMINATION: US aorta DATE: 09/30/2021 09:40 INDICATION: Abdominal aortic aneurysm without rupture TECHNIQUE: Grayscale, color Doppler, and pulsed Doppler images of the aorta and common iliac arteries were obtained. COMPARISON: CT dated 12/07/2020 FINDINGS: The proximal aorta measures 2.9 cm. The mid aorta measures 2.2 cm. Infrarenal abdominal aortic aneury sm measuring 4.0 cm maximal diameter tapering to 1.8 cm at the bifurcation. The right common iliac ar gerald measures 1.3 cm. The left common iliac artery measures 1.3 cm. IMPRESSION: 1. Unchanged fusiform infrarenal abdominal aortic aneurysm measuring up to 4.0 cm in maximal diameter . Reviewed, dictated and finalized at location A. IMPRESSION: 1. Unchanged fusiform infrarenal abdominal aortic aneurysm measuring up to 4.0 cm in maximal diameter.
== END 2021-09-30 09:03 | disposition home or self-care (01) ==
PROVIDERS: PCP Internal Medicine; Visit Provider Nurse Practitioner
DX: I71.4 Abdominal aortic aneurysm, without rupture (principal)
CPT/HCPCS: 76775

== ENCOUNTER 2021-11-06 13:49 | Outpatient (CLI) | payer MEDICARE, SELFPAY ==
[2021-11-06 16:47] LABS: Appearance Urine Slightly Cloudy (Clear); Bilirubin Urine Negative (Negative); Blood Urine Negative (Negative); Color Urine Yellow (Yellow); Glucose Urine UA Negative (Negative); Ketones Urine Negative (Negative); Leukocyte Esterase Ur 2+ LEU/UL (Negative); Nitrate Urine Negative (Negative); Protein Urine Negative (Negative); Urobilinogen Urine 0.2 mg/dL (<2.0)
[2021-11-06 16:53] LABS: Bacteria Urine Trace /hpf; RBC Urine 0-2 /hpf (0-2); WBC Urine >75 /hpf
[2021-11-06 16:55] LABS: Add Urine Microscopic? YES
== END 2021-11-06 13:50 | disposition home or self-care (01) ==
PROVIDERS: PCP Internal Medicine; Visit Provider Nurse Practitioner
DX: R39.11 Hesitancy of micturition (principal)
CPT/HCPCS: 81001; 87086; 87147; 87181; 87186

== ENCOUNTER 2021-12-03 10:10 | Outpatient (CLI) | payer MEDICARE, SELFPAY ==
[2021-12-03 19:24] LABS: Basophils Absolute Auto 0.1 K/mm3 (0.0-0.1); Basophils Percent Auto 1.4 % (0.2-1.2); Eosinophils Absolute Auto 0.3 K/mm3 (0-0.3); Eosinophils Percent Auto 3.7 % (0-4.4); Hematocrit 36.1 % (37.0-47.0); Hemoglobin 11.8 g/dL (12.0-15.0); Immature Granulocyte Absolute 0.01 K/mm3 (0.00-0.031); Immature Granulocyte Percent A 0.1 % (0-0.5); Lymphocytes Absolute Auto 2.51 K/mm3 (0.9-3.2); Lymphocytes Percent Auto 34.7 % (18.3-44.2); Mean Corpuscular HGB Conc 32.7 g/dl (32-36); Mean Corpuscular Hemoglobin 32.2 pg (26-34); Mean Corpuscular Volume 98.6 fl (80-100); Mean Platelet Volume 11.5 fl (7.4-10.4); Monocytes Absolute Auto 0.6 K/mm3 (0.1-0.6); Monocytes Percent Auto 8.8 % (2.6-8.5); Neutrophils Absolute Auto 3.7 K/mm3 (1.3-6.7); Neutrophils Percent Auto 51.3 % (45.5-73.1); Platelet Count Result 226 k/mm3 (150-375); Red Blood Count 3.66 M/mm3 (4.2-5.4); Red Cell Distribution Width 13.1 % (11.5-14.5); White Blood Count 7.2 K/mm3 (4.5-10.0)
[2021-12-03 19:31] LABS: Alanine Aminotransferase 31 U/L (6-35); Albumin Level 4.3 g/dL (3.5-5.1); Alkaline Phosphatase 94 U/L (38-126); Anion Gap 10 mmol/L (8-16); Aspartate Amino Transferase 37 U/L (14-36); Bilirubin,Total 0.6 mg/dL (0.2-1.3); Blood Urea Nitrogen 17 mg/dL (7-17); Calcium 9.8 mg/dL (8.4-10.2); Carbon Dioxide 29 mmol/L (22-30); Chloride 102 mmol/L (98-107); Cholesterol 139 mg/dL (0-200); Estimated Glomerular Filt Rate 48; Glucose 105 mg/dL (65-110); HDL Direct 45 mg/dL; Potassium 3.8 mmol/L (3.4-5.0); Sodium 141 mmol/L (137-145); Triglycerides 115 mg/dL (<150)
[2021-12-03 19:42] LABS: LDL Cholesterol Direct 63 mg/dL
[2021-12-03 20:02] LABS: Vitamin D 25 Hydroxy 83.6 ng/mL
== END 2021-12-03 10:11 | disposition home or self-care (01) ==
PROVIDERS: PCP Internal Medicine; Visit Provider Nurse Practitioner
DX: G25.81 Restless legs syndrome (principal); E78.5 Hyperlipidemia, unspecified; I71.4 Abdominal aortic aneurysm, without rupture; E55.9 Vitamin D deficiency, unspecified; Z13.29 Encounter for screening for other suspected endocrine disorder
CPT/HCPCS: 36415; 80053; 80061; 82306; 85025

== ENCOUNTER 2021-12-09 12:35 | Outpatient (CLI) | payer MEDICARE, SELFPAY ==
[2021-12-09 19:11] LABS: Appearance Urine Slightly Cloudy (Clear); Bilirubin Urine Negative (Negative); Blood Urine Negative (Negative); Color Urine Yellow (Yellow); Glucose Urine UA Negative (Negative); Ketones Urine Negative (Negative); Leukocyte Esterase Ur Negative LEU/UL (Negative); Nitrate Urine Negative (Negative); Protein Urine Negative (Negative); Specific Grav Ur 1.015 (1.001-1.035); Urobilinogen Urine 0.2 mg/dL (<2.0); pH Urine 6.5 (5.0-9.0)
[2021-12-09 19:24] LABS: Mucus Urine Rare /lpf; RBC Urine 0-2 /hpf (0-2); WBC Urine 0-3 /hpf
[2021-12-09 19:35] LABS: Add Urine Microscopic? YES
== END 2021-12-09 12:36 | disposition home or self-care (01) ==
LOC: ANHGOSHLAB 12:38
PROVIDERS: PCP Internal Medicine; Visit Provider Nurse Practitioner
DX: R39.11 Hesitancy of micturition (principal)
CPT/HCPCS: 81001

== ENCOUNTER 2021-12-17 14:41 | Outpatient (CLI) | payer MEDICARE, SELFPAY ==
[2021-12-17 19:58] LABS: Iron 92 ug/dL (37-170)
[2021-12-17 20:10] LABS: Percent Iron Saturation 34 % (20-50)
== END 2021-12-17 14:42 | disposition home or self-care (01) ==
PROVIDERS: PCP Internal Medicine; Visit Provider Nurse Practitioner
DX: D64.9 Anemia, unspecified (principal)
CPT/HCPCS: 36415; 82728; 83540; 83550

== ENCOUNTER → 2021-12-22 14:08 | Outpatient (CLI) | payer MEDICARE, SELFPAY ==
--- NOTE | ~2021-12-22 | CT_ITS ---
EXAMINATION: CT lung screening DATE: 12/22/2021 14:54 INDICATION: Personal history of tobacco dependence. Lung cancer screening. TECHNIQUE: Computed tomography (CT) of the chest was performed without intravenous contrast. The dose -length product was 99.98 mGy-cm. Automated exposure control and iterative reconstruction technique w ere employed. COMPARISON: CT dated 08/25/2020 FINDINGS: Heart size is normal. There is atherosclerosis of the aorta and coronary arteries. No signi ficant pleural or pericardial effusion. No thoracic lymphadenopathy. Upper abdomen is unremarkable. M ild emphysema. No endobronchial lesions. No pneumothorax. 2 mm left upper lobe nodule. No focal airsp nader consolidation. There is a 4 millimeter fissural nodule on the right. No acute osseous abnormality . IMPRESSION: 1. Lung-RADS category 2: Benign appearance or behavior. Continue annual screening with noncontrast lo w-dose chest CT in 12 months. Reviewed, dictated and finalized at location A. IMPRESSION: 1. Lung-RADS category 2: Benign appearance or behavior. Continue annual screeni ng with noncontrast low-dose chest CT in 12 months.
--- NOTE | ~2021-12-22 | DEXA_ITS ---
Bone Density Report Name: DONALD SPICER Age: 76 Sex: Female Ethnicity: White Date of : 1945 Indication: osteopenia; parental hip fracture; height loss; postmenopausal Referring Provider: Yvonne Mazariegos Study: Bone densitometry was performed. Exam Date: December 22, 2021 Accession number: [id number] Bone Density: Region BMD T-score Z-score Classification AP Spine (L1-L4) 1.101 0.5 3.0 Normal Femoral Neck (Left) 0.667 -1.6 0.5 Osteopenia Total Hip (Left) 0.844 -0.8 1.1 Normal Femoral Neck (Right) 0.624 -2.0 0.1 Osteopenia Total Hip (Right) 0.799 -1.2 0.7 Osteopenia Total Hip Mean 0.822 -1.0 0.9 Normal World Health Organization criteria for BMD impression classify patients as: Normal (T-score at or above -1.0), Osteopenia (T-score between -1.0 and -2.5), or Osteoporosis (T-score at or below -2.5). 10-year Fracture Risk(1): Major Osteoporotic Fracture 25% Hip Fracture 15% Reported Risk Factors: [place] (), Neck BMD=0.624, BMI=26.8, parental fracture (1) FRAX(R) Version 3.08. Fracture probability calculated for an untreated patient. Fracture probability may be lower if the patient has received treatment. Previous Exams: Region Exam Age BMD T-score BMD Change BMD Change Date g/cm2 vs Baseline vs Previous AP Spine(L1-L4) 12/22/2021 76 1.101 0.5 -0.111 -0.022 01/10/2019 73 1.123 0.7 -0.089 0.076* 11/19/2015 70 1.048 0.0 -0.165 -0.132* 09/05/2013 68 1.179 1.2 -0.033 0.009 04/14/2011 66 1.170 1.1 -0.042 0.060* 11/29/2008 63 1.110 0.6 -0.102 -0.011 11/07/2006 61 1.121 0.7 -0.091 -0.091 11/29/2003 58 1.213 1.5 Total Hip(Left) 12/22/2021 76 0.844 -0.8 -0.017 0.018 01/10/2019 73 0.826 -0.9 -0.034 -0.071* 11/19/2015 70 0.897 -0.4 0.037 -0.008 09/05/2013 68 0.906 -0.3 0.045 -0.027 04/14/2011 66 0.933 -0.1 0.072 0.014 11/29/2008 63 0.918 -0.2 0.058 0.006 11/07/2006 61 0.912 -0.2 0.052 0.052 11/29/2003 58 0.860 -0.7 Total Hip(Right) 12/22/2021 76 0.799 -1.2 -0.016 0.048* 01/10/2019 73 0.751 -1.6 -0.065 -0.055* 11/19/2015 70 0.806 -1.1 -0.010 0.001 09/05/2013 68 0.805 -1.1 -0.011 -0.056* 04/14/2011 66 0.861 -0.7 0.045 -0.008 11/29/2008 63 0.868 -0.6 0.053 0.024
== END ==
PROVIDERS: PCP Internal Medicine; Visit Provider Clinical Nurse Specialist
DX: Z12.2 Encounter for screening for malignant neoplasm of respiratory organs (principal); Z87.891 Personal history of nicotine dependence; M81.0 Age-related osteoporosis without current pathological fracture; M85.851 Other specified disorders of bone density and structure, right thigh; M85.852 Other specified disorders of bone density and structure, left thigh
CPT/HCPCS: 71271; 77080

== ENCOUNTER 2021-12-26 08:20 | Emergency (ER) | payer MEDICARE, SELFPAY ==
--- NOTE | 2021-12-26 08:48 | ED.URI ---
HPI - URI/Sore Throat General Chief Complaint: Upper Respiratory Infection Stated Complaint: sore throat Time Seen by Provider: 12/26/21 08:48 Source: patient, RN notes reviewed and old records reviewed Mode of arrival: ambulatory Limitations: no limitations History of Present Illness HPI Narrative: 76-year-old female presents to the [facility] with complaints of postnasal drip and sore throat since yesterday after her got done mowing the grass. Has taken Aleve, no other medications. Denies any shortness of breath or cough. No abdominal pain. Denies fevers. MD elicited complaint: sore throat and rhinorrhea Onset (ago): day(s) (, 12/25/21) Consistency: constant Related Data Home Medications Medication Instructions Recorded Confirmed lansoprazole 15 mg capsule,delayed 15 mg PO DAILY 02/24/19 12/09/21 release (Prevacid) cholecalciferol (vitamin D3) 25 1,000 unit PO DAILY 05/02/19 12/09/21 mcg (1,000 unit) capsule calcium carbonate 600 mg-vitamin 1 tablet PO DAILY 12/07/20 12/09/21 D3 20 mcg (800 unit) chewable tablet (Caltrate 600 plus D) Allergies Allergy/AdvReac Type Severity Reaction Status Date / Time adhesive Allergy Unknown Rash Verified 12/26/21 08:49 Penicillins Allergy Unknown Rash Verified 12/26/21 08:49 poison carol extract Allergy Unknown Rash Verified 12/26/21 08:49 Sulfa (Sulfonamide Allergy Unknown Rash Verified 12/26/21 08:49 Antibiotics) SKIN GLUE Allergy Unknown RASH Uncoded 12/26/21 08:49 ITCHING. Review of Systems Review of Systems: All systems reviewed & are unremarkable except as noted in HPI and below Constitutional: Constitutional: Reports no additional constitutional complaints, Denies chills and Denies fever(s) Eyes: Eyes: Reports no additional eye complaints ENT: Reports as per HPI, Reports nasal congestion, Reports nasal discharge, Reports post nasal drip and Reports sore throat Cardiovascular: Cardiovascular: Reports no additional cardiovascular complaints Respiratory: Respiratory: Reports no additional respiratory complaints Gastrointestinal: Gastrointestinal: Reports no additional gastrointestinal complaints Musculoskeletal: Musculoskeletal: Reports no additional musculoskeletal complaints Integumentary/Breasts: Skin/Breast: Reports system reviewed and no additional complaints, except as docu Neurologic: Reports system reviewed and no additional complaints, except as documented Psychiatric: Psychiatric: Reports no additional psychiatric complaints Allergic/Immunologic: Allergic/Immunologic: Reports no additional allergic/immunologic complaints [facility] Past Medical History Medical History Aneurysm of infrarenal abdominal aorta Stable 4.0 cm fusiform aneurysm on CT of the abdomen and pelvis dated 12/07/2020. Breast cancer Status post radiation therapy and lumpectomy with subsequent bilateral mastectomy. Chronic obstructive pulmonary disease Colitis Diverticulosis Former smoker Gastroesophageal reflux disease (Unknown) Hyperlipidemia (Unknown) Hypertension (Unknown) Osteoarthritis Osteopenia Shingles (08/2020) Surgical History Surgical History History of bilateral mastectomy (04/2016) History of colonoscopy 2018 History of hysterectomy History of lumpectomy of left breast (07/2009) History of lumpectomy of right breast (11/2014) Status post cataract extraction of both eyes with insertion of intraocular lens (2014) Family History Family History Father Family history of malignant neoplasm of brain Family history of diabetes mellitus in first degree relative Malignant neoplasm of prostate Diabetes mellitus Mother Hypertension Patient's mother is Sibling Hypertension Patient's sister is in good health Family history of diabetes mellitus in first degree relative
[2021-12-26 09:01] VITALS: BP 128/74; PULSE 103; RESP 16; TEMP 36.6; O2SAT 98
== END 2021-12-26 09:13 | disposition home or self-care (01) ==
PROVIDERS: Emergency Provider Nurse Practitioner; PCP Internal Medicine
DX: J30.9 Allergic rhinitis, unspecified (principal); R09.82 Postnasal drip; K21.9 Gastro-esophageal reflux disease without esophagitis; M85.80 Other specified disorders of bone density and structure, unspecified site; Z85.3 Personal history of malignant neoplasm of breast; J44.9 Chronic obstructive pulmonary disease, unspecified; Z87.891 Personal history of nicotine dependence
CPT/HCPCS: 87081; 87880; 99213; G0463

== ENCOUNTER 2021-12-28 12:51 | Emergency (ER) | payer MEDICARE, SELFPAY ==
--- NOTE | 2021-12-28 12:56 | ED.URI ---
HPI - URI/Sore Throat General Chief Complaint: Upper Respiratory Infection Stated Complaint: needs covid test Time Seen by Provider: 12/28/21 12:56 Source: patient and RN notes reviewed Mode of arrival: ambulatory Limitations: no limitations History of Present Illness HPI Narrative: 76-year-old female presents to the [facility] with complaints of a sore throat for 3 days. Was seen on Tuesday here, strep test negative. Followed up with primary care provider today was told to get a rapid COVID. Had a Rapid strep done again, negitive. Micro from strep test on Sat was also negative. Patient states that she has been taking medication's since being seen on Tuesday. States the only thing she can eat or some crackers. Denies any fevers. Denies any cough or chest pain. No shortness of breath. MD elicited complaint: sore throat Related Data Home Medications Medication Instructions Recorded Confirmed lansoprazole 15 mg capsule,delayed 15 mg PO DAILY 02/24/19 12/28/21 release (Prevacid) cholecalciferol (vitamin D3) 25 1,000 unit PO DAILY 05/02/19 12/28/21 mcg (1,000 unit) capsule calcium carbonate 600 mg-vitamin 1 tablet PO DAILY 12/07/20 12/28/21 D3 20 mcg (800 unit) chewable tablet (Caltrate 600 plus D) Allergies Allergy/AdvReac Type Severity Reaction Status Date / Time adhesive Allergy Unknown Rash Verified 12/28/21 11:30 Penicillins Allergy Unknown Rash Verified 12/28/21 11:30 poison carol extract Allergy Unknown Rash Verified 12/28/21 11:30 Sulfa (Sulfonamide Allergy Unknown Rash Verified 12/28/21 11:30 Antibiotics) SKIN GLUE Allergy Unknown RASH Uncoded 12/28/21 11:30 ITCHING. Review of Systems Review of Systems: All systems reviewed & are unremarkable except as noted in HPI and below Constitutional: Constitutional: Reports no additional constitutional complaints, Denies chills and Denies fever(s) Eyes: Eyes: Reports no additional eye complaints ENT: Reports as per HPI and Reports sore throat Cardiovascular: Cardiovascular: Reports no additional cardiovascular complaints Respiratory: Respiratory: Reports no additional respiratory complaints Gastrointestinal: Gastrointestinal: Reports no additional gastrointestinal complaints Musculoskeletal: Musculoskeletal: Reports no additional musculoskeletal complaints Integumentary/Breasts: Skin/Breast: Reports system reviewed and no additional complaints, except as docu Neurologic: Reports system reviewed and no additional complaints, except as documented Psychiatric: Psychiatric: Reports no additional psychiatric complaints Allergic/Immunologic: Allergic/Immunologic: Reports no additional allergic/immunologic complaints [facility] Past Medical History Medical History Aneurysm of infrarenal abdominal aorta Stable 4.0 cm fusiform aneurysm on CT of the abdomen and pelvis dated 12/07/2020. Breast cancer Status post radiation therapy and lumpectomy with subsequent bilateral mastectomy. Chronic obstructive pulmonary disease Colitis Diverticulosis Former smoker Gastroesophageal reflux disease (Unknown) Hyperlipidemia (Unknown) Hypertension (Unknown) Osteoarthritis Osteopenia Shingles (08/2020) Surgical History Surgical History History of bilateral mastectomy (04/2016) History of colonoscopy 2018 History of hysterectomy History of lumpectomy of left breast (07/2009) History of lumpectomy of right breast (11/2014) Status post cataract extraction of both eyes with insertion of intraocular lens (2014) Family History Family History Father Family history of malignant neoplasm of brain Family history of diabetes mellitus in first degree relative Malignant neoplasm of prostate Diabetes mellitus Mother Hypertension Patient's mother is Sibling Hypertension Patient's sist
[2021-12-28 13:02] VITALS: BP 122/65; PULSE 97; RESP 16; TEMP 36.4; O2SAT 96
== END 2021-12-28 13:27 | disposition home or self-care (01) ==
PROVIDERS: Emergency Provider Nurse Practitioner; PCP Internal Medicine
DX: J02.9 Acute pharyngitis, unspecified (principal); Z85.3 Personal history of malignant neoplasm of breast; J44.9 Chronic obstructive pulmonary disease, unspecified; E78.5 Hyperlipidemia, unspecified; K21.9 Gastro-esophageal reflux disease without esophagitis; I10 Essential (primary) hypertension; Z87.891 Personal history of nicotine dependence; Z90.13 Acquired absence of bilateral breasts and nipples; Z20.822 Contact with and (suspected) exposure to COVID-19
CPT/HCPCS: 87426; 99213; C9803; G0463

== ENCOUNTER 2022-01-04 10:08 | Outpatient (CLI) | payer MEDICARE, SELFPAY ==
[2022-01-04 21:08] LABS: Immature Reticulocyte Fraction 15.7 % (3.0-15.9); Reticulocyte Hemoglobin Conten 36.1 pg (28.2-35.7); Reticulocytes Absolute 0.06 B/L (32.2-175.7)
[2022-01-04 21:16] LABS: Hematocrit 36.7 % (37.0-47.0); Mean Corpuscular HGB Conc 32.7 g/dl (32-36); Mean Corpuscular Hemoglobin 32.1 pg (26-34); Mean Corpuscular Volume 98.1 fl (80-100); Mean Platelet Volume 11.1 fl (7.4-10.4); Platelet Count Result 276 k/mm3 (150-375); Red Blood Count 3.74 M/mm3 (4.2-5.4); Red Cell Distribution Width 13.2 % (11.5-14.5)
[2022-01-04 21:45] LABS: Folic Acid 18.3 ng/mL (2.76->20)
== END 2022-01-04 10:09 | disposition home or self-care (01) ==
PROVIDERS: PCP Internal Medicine; Referring Provider Nurse Practitioner; Visit Provider Internal Medicine
DX: R00.0 Tachycardia, unspecified (principal); D64.9 Anemia, unspecified
CPT/HCPCS: 36415; 82607; 82746; 84443; 85027; 85046

== ENCOUNTER 2022-02-24 10:04 | Emergency (ER) | payer MEDICARE, SELFPAY ==
[2022-02-24 11:02] VITALS: BP 127/81; PULSE 89; RESP 16; TEMP 36.7; O2SAT 98
--- NOTE | 2022-02-24 12:00 | ED.URI ---
HPI - URI/Sore Throat General Chief Complaint: Upper Respiratory Infection Stated Complaint: SORE THROAT/SWOLLEN GLAND Time Seen by Provider: 02/24/22 11:54 Source: patient Mode of arrival: ambulatory Limitations: no limitations History of Present Illness HPI Narrative: Patient presents today with a 5-6 day history of sore throat with swollen glands and occasional cough. Denies fever. She has been using Flonase and ibuprofen without relief. Denies sick contacts. Related Data Home Medications Medication Instructions Recorded Confirmed lansoprazole 15 mg capsule,delayed 15 mg PO DAILY 02/24/19 02/24/22 release (Prevacid) cholecalciferol (vitamin D3) 25 1,000 unit PO DAILY 05/02/19 02/24/22 mcg (1,000 unit) capsule calcium carbonate 600 mg-vitamin 1 tablet PO DAILY 12/07/20 02/24/22 D3 20 mcg (800 unit) chewable tablet (Caltrate 600 plus D) Allergies Allergy/AdvReac Type Severity Reaction Status Date / Time adhesive Allergy Unknown Rash Verified 02/24/22 11:28 Penicillins Allergy Unknown Rash Verified 02/24/22 11:28 poison carol extract Allergy Unknown Rash Verified 02/24/22 11:28 Sulfa (Sulfonamide Allergy Unknown Rash Verified 02/24/22 11:28 Antibiotics) SKIN GLUE Allergy Unknown RASH Uncoded 02/24/22 11:28 ITCHING. Review of Systems Review of Systems: CONSTITUTIONAL: Denies body aches, fever, chills, or sweats. EYES: Denies visual changes, redness, or discharge. ENT: Denies rhinorrhea, congestion, otalgia.+ sore throat, swollen glands CARDIOVASCULAR: Denies chest pain, palpitations, or edema. RESPIRATORY: Denies dyspnea.+ occasional cough GASTROINTESTINAL: Denies abdominal pain, nausea, vomiting, or diarrhea. GENITOURINARY: Denies dysuria or hematuria. SKIN: Denies rash, itching, or wounds. MUSCULOSKELETAL: Denies back pain, joint pain, or myalgia. NEUROLOGIC: Denies headache, numbness, tingling, or weakness. PSYCH: Denies depression or anxiety. [facility], [facility] Past Medical History Medical History Aneurysm of infrarenal abdominal aorta Stable 4.0 cm fusiform aneurysm on CT of the abdomen and pelvis dated 12/07/2020. Breast cancer Status post radiation therapy and lumpectomy with subsequent bilateral mastectomy. Chronic obstructive pulmonary disease Colitis Diverticulosis Former smoker Gastroesophageal reflux disease (Unknown) Hyperlipidemia (Unknown) Hypertension (Unknown) Osteoarthritis Osteopenia Shingles (08/2020) Surgical History Surgical History History of bilateral mastectomy (04/2016) History of colonoscopy 2018 History of hysterectomy History of lumpectomy of left breast (07/2009) History of lumpectomy of right breast (11/2014) Status post cataract extraction of both eyes with insertion of intraocular lens (2014) Family History Family History Father Family history of malignant neoplasm of brain Family history of diabetes mellitus in first degree relative Malignant neoplasm of prostate Diabetes mellitus Mother Hypertension Patient's mother is Sibling Hypertension Patient's sister is in good health Family history of diabetes mellitus in first degree relative Diabetes mellitus Family history of malignant neoplasm of urinary bladder Family history of chronic obstructive pulmonary disease Dementia Other Family history of allergic disorder Family history of cardiovascular disease Social History Social History Social History: The patient is and lives with her in [place]. She has no children. 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 Smoked 0.5 packs of cigarettes a day for many years and quit in early 2019. No alcohol or illicit substance abuse. She designates her or her sister, Phyllis Sw
== END 2022-02-24 12:08 | disposition home or self-care (01) ==
PROVIDERS: Emergency Provider Nurse Practitioner; PCP Internal Medicine
DX: J06.9 Acute upper respiratory infection, unspecified (principal); Z87.891 Personal history of nicotine dependence; M19.90 Unspecified osteoarthritis, unspecified site; M85.80 Other specified disorders of bone density and structure, unspecified site; Z85.3 Personal history of malignant neoplasm of breast; Z90.13 Acquired absence of bilateral breasts and nipples; Z98.42 Cataract extraction status, left eye; Z98.41 Cataract extraction status, right eye; Z96.1 Presence of intraocular lens
CPT/HCPCS: 87426; 99212; C9803; G0463

== ENCOUNTER 2022-03-09 15:50 | Outpatient (NON) | payer MEDICARE, SELFPAY | END 2022-03-09 15:51 | disposition home or self-care (01) | LOC: ANHGOSHLAB 15:52 | PROVIDERS: PCP Internal Medicine; Visit Provider Nurse Practitioner | DX: R32 Unspecified urinary incontinence (principal) | CPT/HCPCS: 87077; 87086; 87186 ==

== ENCOUNTER 2022-05-12 12:46 | Emergency (ER) | payer MEDICARE, SELFPAY ==
--- NOTE | 2022-05-12 12:48 | ED.FEMALEGU ---
HPI - Female Genitourinary General Chief complaint: Urogenital-Female Stated complaint: UTI SYMPTOMS Time Seen by Provider: 05/12/22 12:48 Source: patient and RN notes reviewed History of Present Illness HPI Narrative: Patient is a 77-year-old female who presents to urgent care complaining of foul-smelling urine. Patient states that the last time she had the symptoms she was positive for UTI. Patient denies any urinary frequency, urgency, abdominal pain, nausea, vomiting or low back pain. Patient states she has seen a urologist in the past and may ?discharge her? and said that her tests were negative. Patient states that she most recently has been treated for UTI. Was noted in patient's chart that she was treated with Macrobid in November and cefdinir most recently. No other acute complaints. No acute distress noted. Patient aware of the plan of care. Some parts of this dictation were generated by voice recognition software and may contain typographical and/or grammatical inaccuracies. Related Data Home Medications Medication Instructions Recorded Confirmed lansoprazole 15 mg capsule,delayed 15 mg PO DAILY 02/24/19 05/12/22 release (Prevacid) cholecalciferol (vitamin D3) 25 1,000 unit PO DAILY 05/02/19 05/12/22 mcg (1,000 unit) capsule calcium carbonate 600 mg-vitamin 1 tablet PO DAILY 12/07/20 05/12/22 D3 20 mcg (800 unit) chewable tablet (Caltrate 600 plus D) Allergies Allergy/AdvReac Type Severity Reaction Status Date / Time adhesive Allergy Unknown Rash Verified 05/12/22 13:10 Penicillins Allergy Unknown Rash Verified 05/12/22 13:10 poison carol extract Allergy Unknown Rash Verified 05/12/22 13:10 Sulfa (Sulfonamide Allergy Unknown Rash Verified 05/12/22 13:10 Antibiotics) SKIN GLUE Allergy Unknown RASH Uncoded 05/12/22 13:12 ITCHING. Review of Systems Review of Systems: CONSTITUTIONAL: Denies fever, chills, or sweats. EYES: Denies visual changes, redness, or discharge. ENT: Denies rhinorrhea, congestion, sore throat, or otalgia. CARDIOVASCULAR: Denies chest pain, palpitations, or edema. RESPIRATORY: Denies cough or dyspnea. GASTROINTESTINAL: Denies abdominal pain, nausea, vomiting, or diarrhea. GENITOURINARY: Denies dysuria or hematuria. Reports of foul-smelling urine SKIN: Denies rash or itching. MUSCULOSKELETAL: Denies back pain, joint pain, or myalgia. NEUROLOGIC: Denies headache, numbness, or weakness. All other systems reviewed are negative, except as documented in HPI. [facility] Past Medical History Medical History Aneurysm of infrarenal abdominal aorta Stable 4.0 cm fusiform aneurysm on CT of the abdomen and pelvis dated 12/07/2020. Breast cancer Status post radiation therapy and lumpectomy with subsequent bilateral mastectomy. Chronic obstructive pulmonary disease Colitis Diverticulosis Former smoker Gastroesophageal reflux disease (Unknown) Hyperlipidemia (Unknown) Hypertension (Unknown) Osteoarthritis Osteopenia Shingles (08/2020) Surgical History Surgical History History of bilateral mastectomy (04/2016) History of colonoscopy 2018 History of hysterectomy History of lumpectomy of left breast (07/2009) History of lumpectomy of right breast (11/2014) Status post cataract extraction of both eyes with insertion of intraocular lens (2014) Family History Family History Father Family history of malignant neoplasm of brain Family history of diabetes mellitus in first degree relative Malignant neoplasm of prostate Diabetes mellitus Mother Hypertension Patient's mother is Sibling Hypertension Patient's sister is in good health Family history of diabetes mellitus in first degree relative Diabetes mellitus Family history of malignant neoplasm of urinary bladder Family history of chronic obstructive pu
[2022-05-12 12:58] VITALS: BP 126/79; PULSE 93; RESP 16; TEMP 36.4; O2SAT 100
== END 2022-05-12 13:35 | disposition home or self-care (01) ==
PROVIDERS: Emergency Provider Nurse Practitioner Family
DX: N39.0 Urinary tract infection, site not specified (principal); I10 Essential (primary) hypertension; E78.5 Hyperlipidemia, unspecified; Z87.891 Personal history of nicotine dependence; Z85.3 Personal history of malignant neoplasm of breast
CPT/HCPCS: 81003; 87077; 87086; 87186; 99213; G0463

== ENCOUNTER 2022-09-14 09:51 | Outpatient (CLI) | payer MEDICARE, SELFPAY ==
--- NOTE | ~2022-09-14 | US_ITS ---
EXAMINATION: US aorta DATE: 09/14/2022 10:31 INDICATION: Abdominal aortic aneurysm without rupture TECHNIQUE: Grayscale, color Doppler, and pulsed Doppler images of the aorta and common iliac arteries were obtained. COMPARISON: 09/30/2021 FINDINGS: Maximum vascular dimensions are as follows: Proximal aorta: 2.7 cm Mid aorta: 3.2 cm Distal aorta: 4.9 cm Right common iliac artery: 1.8 cm Left common iliac artery: 1.7 cm There is a 4.7 x 4.9 cm fusiform infrarenal abdominal aortic aneurysm with increase in size since the comparison ultrasound. IMPRESSION: 1. 4.9 cm fusiform infrarenal abdominal aortic aneurysm with increase in size since the comparison ul trasound. Reviewed, dictated and finalized at location A. IMPRESSION: 1. 4.9 cm fusiform infrarenal abdominal aortic aneurysm with increase in size s kel the comparison ultrasound.
== END 2022-09-14 09:52 | disposition home or self-care (01) ==
PROVIDERS: PCP Internal Medicine; Visit Provider Nurse Practitioner
DX: I71.40 Abdominal aortic aneurysm, without rupture, unspecified (principal)
CPT/HCPCS: 76775

== ENCOUNTER 2022-09-29 23:48 | Inpatient (IN) | payer MEDICARE, SELFPAY ==
--- NOTE | ~2022-09-29 | CT_ITS ---
Clinical Indication: Abdominal pain, abdominal aneurysm CT Scan of the Chest, Abdomen, and Pelvis with Contrast: Technique: Contiguous sections were acquired throughout the chest, abdomen, and pelvis prior to and f ollowing intravenous administration of 100 cc of Omnipaque 350. Dose reduction technique was used on this scan by utilizing automated exposure control and iterative reconstruction technique. The dose-l ength product (DLP) was 2303.55 mGy-cm. COMPARISON: 12/22/2021 and 12/07/2020 Findings: There is no evidence of any significant mediastinal, hilar or axillary lymphadenopathy. Atherosclerot ic calcifications of the thoracic aorta are present. No thoracic aortic aneurysm or dissection. There is no evidence of pleural or pericardial effusion. The lungs are clear. No pulmonary nodules or infiltrates are noted. There is probable diffuse fatty infiltration of liver. The spleen, pancreas, gallbladder, adrenals an d kidneys are within normal limits. Infrarenal abdominal aortic aneurysm measures 4.3 cm in maximum d iameter, minimally increased since 2020. No lymphadenopathy. The cecum is markedly distended and displaced to the left, with birds beak appearance. 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 No pneumatosis or free air evident. Urinary bladder is unremarkable. No adnexal mass seen. Trace pelvic ascites noted. Impression: Cecal volvulus, as detailed above. Cecum is distended to approximately 9 cm in diameter. No pneumatos is or free air. 4.3 cm infrarenal abdominal aortic aneurysm, minimally increased from prior exam. Probable diffuse fatty infiltration of liver. Trace pelvic ascites. Reviewed, dictated and finalized at location M. Impression: Cecal volvulus, as detailed above. Cecum is distended to approximately 9 cm in diameter. No pneumatosis or free air. 4.3 cm infrarenal abdominal aortic aneurysm, minimally increased from prior exa m. Probable diffuse fatty infiltration of liver. Trace pelvic ascites.
--- NOTE | ~2022-09-29 | XR_ITS ---
Portable upright view of the abdomen Clinical history: NG tube placement Findings: NG tube is in satisfactory position. Air distended bowel noted in the upper abdomen, partia lly visualized. No abnormal mass lesion or calcification is seen. Osseous structures are intact. Impression: NG tube in satisfactory position. Partially imaged air distended bowel in the upper abdomen. Reviewed, dictated and finalized at location . Impression: NG tube in satisfactory position. Partially imaged air distended bowel in the upper abdomen.
--- NOTE | 2022-09-29 23:51 | ECG_ITS ---
Measurements Intervals [place] Rate: 98 P: 67 [place]: 120 QRS: 66 QRSD: 82 T: 48 QT: 330 QTc: 422 Interpretive Statements SINUS RHYTHM POSSIBLE LEFT ATRIAL ENLARGEMENT [-0.1mV P-WAVE IN V1/V2] COMPARED TO ECG 05/28/2021 13:57:25 NO SIGNIFICANT CHANGES Electronically Signed On 09-30-2022 11:45:46 CDT by Les Lion M.D.
[2022-09-29 23:53] VITALS: BP 140/94; PULSE 100; RESP 15; TEMP 36.7; O2SAT 98
[2022-09-30] VITALS (19 sets, daily range): BP systolic 113–156; BP diastolic 58–97; PULSE 69–98; RESP 11–21; TEMP 36–37.1; O2SAT 95–100; BMI 25.6
[2022-09-30 00:04] LABS: Basophils Absolute Auto 0.1 K/mm3 (0.0-0.1); Basophils Percent Auto 0.5 % (0.2-1.2); Eosinophils Absolute Auto 0.2 K/mm3 (0-0.3); Eosinophils Percent Auto 1.6 % (0-4.4); Hematocrit 37.6 % (37.0-47.0); Hemoglobin 12.6 g/dL (12.0-15.0); Immature Granulocyte Absolute 0.05 K/mm3 (0.00-0.031); Immature Granulocyte Percent A 0.4 % (0-0.5); Lymphocytes Absolute Auto 3.51 K/mm3 (0.9-3.2); Mean Corpuscular HGB Conc 33.5 g/dl (32-36); Mean Corpuscular Volume 98.4 fl (80-100); Mean Platelet Volume 9.9 fl (7.4-10.4); Monocytes Percent Auto 7.9 % (2.6-8.5); Neutrophils Absolute Auto 7.4 K/mm3 (1.3-6.7); Neutrophils Percent Auto 60.6 % (45.5-73.1); Platelet Count Result 234 k/mm3 (150-375); Red Blood Count 3.82 M/mm3 (4.2-5.4); Red Cell Distribution Width 12.8 % (11.5-14.5); White Blood Count 12.1 K/mm3 (4.5-10.0)
[2022-09-30 00:13] LABS: Prothrombin Time 13.3 Seconds (11.1-14.7)
[2022-09-30 00:14] LABS: Partial Thromboplastin Time 28.7 SECONDS (22.3-36.8)
[2022-09-30 00:16] LABS: Alanine Aminotransferase 37 U/L (6-35); Albumin Level 4.6 g/dL (3.5-5.1); Alkaline Phosphatase 108 U/L (38-126); Anion Gap 7 mmol/L (8-16); Aspartate Amino Transferase 40 U/L (14-36); Bilirubin,Total 0.4 mg/dL (0.2-1.3); Blood Urea Nitrogen 19 mg/dL (7-17); Calcium 10.1 mg/dL (8.4-10.2); Carbon Dioxide 27 mmol/L (22-30); Chloride 102 mmol/L (98-107); Estimated CRCL calculation 42 ml/min; Estimated Glomerular Filt Rate 54; Glucose 113 mg/dL (65-110); Lactic Acid Reflex 1.4 mmol/L (0.7-2.0); Potassium 4.1 mmol/L (3.4-5.0); Sodium 136 mmol/L (137-145)
[2022-09-30 00:27] LABS: Troponin I < 0.012 ng/mL (0.000-0.034)
[2022-09-30] MEDS: fentaNYL CITRATE INJ (*CRX) 100 MCG/2 ML VIAL 50 MCG IV PUSH (00:51)
--- NOTE | 2022-09-30 01:18 | ED.ABDPAIN ---
HPI - Abdominal Pain General Chief Complaint: Abdominal Pain Stated Complaint: abd pain Time Seen by Provider: 09/30/22 00:25 History of Present Illness HPI narrative: 77-year-old female presented the ED for evaluation of chest and abdomen pain. Patient reports she has had associated bloating and diarrhea. Patient also reports decreased p.o. intake. Patient reports that her symptoms started approximately 2 weeks ago and started as a mild generalized lower abdominal pain. Patient had following a bland diet but then started having acute worsening pain at 5 AM on the . Patient states the pain has progressed throughout the day. Patient reports that she did have an episode of diarrhea from, 9 AM until 2 PM, patient did treat this with Imodium and states she has had no further diarrhea. Patient states she has also had decreased flatus. Patient does have a prior history of diverticulitis and patient also has a known abdominal aortic aneurysm. Patient does have a prior history of colitis and diverticulitis but has never had to have any abdominal surgeries. Patient does not take any blood thinners. Patient does have outpatient follow-up scheduled on October [address] Miranda regarding her aortic aneurysm Related Data Home Medications Medication Instructions Recorded Confirmed cholecalciferol (vitamin D3) 25 1,000 unit PO DAILY 05/02/19 09/30/22 mcg (1,000 unit) capsule calcium carbonate 600 mg-vitamin 1 tablet PO DAILY 12/07/20 09/30/22 D3 20 mcg (800 unit) chewable tablet (Caltrate 600 plus D) amlodipine 10 mg tablet 10 mg PO DAILY 09/30/22 09/30/22 atorvastatin 10 mg tablet 10 mg PO DAILY 09/30/22 09/30/22 lisinopril 40 mg tablet 40 mg PO DAILY 09/30/22 09/30/22 omeprazole magnesium 20 mg 20 mg PO DAILY 09/30/22 09/30/22 capsule,delayed release (Acid [employer] (omeprazole)) Allergies Allergy/AdvReac Type Severity Reaction Status Date / Time adhesive Allergy Unknown Rash Verified 09/30/22 05:46 Penicillins Allergy Unknown Rash Verified 09/30/22 05:46 poison carol extract Allergy Unknown Rash Verified 09/30/22 05:46 Sulfa (Sulfonamide Allergy Unknown Rash Verified 09/30/22 05:46 Antibiotics) SKIN GLUE Allergy Unknown RASH Uncoded 09/30/22 05:46 ITCHING. Review of Systems Review of Systems: All systems reviewed & are unremarkable except as noted in HPI and below PMFSH Past Medical History Medical History Aneurysm of infrarenal abdominal aorta Stable 4.0 cm fusiform aneurysm on CT of the abdomen and pelvis dated 12/07/2020. Breast cancer Status post radiation therapy and lumpectomy with subsequent bilateral mastectomy. Chronic obstructive pulmonary disease Colitis Diverticulosis Former smoker Gastroesophageal reflux disease (Unknown) Hyperlipidemia (Unknown) Hypertension (Unknown) Osteoarthritis Osteopenia Shingles (08/2020) Surgical History Surgical History History of bilateral mastectomy (04/2016) History of colonoscopy 2018 History of hysterectomy History of lumpectomy of left breast (07/2009) History of lumpectomy of right breast (11/2014) Status post cataract extraction of both eyes with insertion of intraocular lens (2014) Family History Family History Father Family history of malignant neoplasm of brain Family history of diabetes mellitus in first degree relative Malignant neoplasm of prostate Diabetes mellitus Mother Hypertension Patient's mother is Sibling Hypertension Patient's sister is in good health Family history of diabetes mellitus in first degree relative Diabetes mellitus Family history of malignant neoplasm of urinary bladder Family history of chronic obstructive pulmonary disease Dementia Other Family history of allergic disorder Family history of cardiovascular disease Social His
--- NOTE | 2022-09-30 02:37 | PC.NURSE ---
Patient states she is still in pain, 09/11. Notified EDP Dr. Garcia who verbally ordered 0.5mg Dilaudid IVP.
[2022-09-30] MEDS: HYDROmorphone HCL INJ (*CRX) 1 MG/ML SYR 0.5 MG IV PUSH ×4 (02:44→14:53)
--- NOTE | 2022-09-30 02:50 | PC.NURSE ---
Patient stated she began feeling nauseas. Notified Dr. Garcia who verbally ordered 4mg IVP Zofran.
[2022-09-30] MEDS: ONDANSETRON INJ 4 MG/2 ML VIAL IV PUSH ×4 (02:52→14:53)
[2022-09-30] MEDS: SODIUM CHLORIDE 0.9% IV 1,000 ML 125 ML IV CONT ×2 (04:30→12:07)
[2022-09-30] MEDS: metroNIDAZOLE 500 MG/ISO 100ML 500 MG/100 ML BAG 100 MG IVPB ×3 (05:08→17:44)
--- NOTE | 2022-09-30 05:35 | ADMGEN ---
This patient, Yaquelin Lee, was admitted to Medical Room 348-01. Patient/family oriented to hospital policies and general routines including ID bracelet, bed and alarms, visiting hours, pain management, procedures, bathroom and other care routines, personal items, smoking policy, room service/diet, and visiting hours. Information on how to activate the Rapid Response Team has been discussed. Patient/Family are encouraged to report perceived risks to care and to ask questions if they do not understand what they are told or what they should do.
--- NOTE | 2022-09-30 11:48 | WPDCN ---
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 Patient has no evidence of acute surgical abdomen or perforation at this time. Over the cecum is 9cm in diameter and if he continues to dilate it would have increasing risk of perforation. I recommended that she have an urgent laparotomy and right hemicolectomy to surgically manage the cecal volvulus and bowel obstruction. She is agreeable to proceeding with the surgery. Risks, benefits, indications, and expected outcomes were discussed in detail with the patient and/or family. They understand and I have answered all other questions. They wished to proceed with surgery as outlined above. Continue with IV antibiotics for now and nasogastric tube decompression and NPO status. HPI Data of Consult Date/Time: 09/30/22 11:48 Requesting Physician: Merlin Godwin MD Primary Care Provider: Alexx Gamble DO Consult Narrative Reason for consult: bowel obstruction secondary to cecal volvulus Narrative: Yaquelin Lee is a 77 year old female was admitted to the hospital through the emergency room yesterday complaining of severe upper abdominal pain. She has some nausea but no emesis. She took some Imodium she had had multiple episodes of diarrhea. She apparently been having some vague abdominal pain for the last 2 weeks. She has noted no blood in her stools. No weight loss. Workup in emergency room showed elevated white blood cell [id number]. CT scan abdomen pelvis showed a cecal volvulus with dilated cecum up to 9cm. No pneumatosis of the bowel wall was seen and no perforation was seen. She has not any previous abdominal surgery. She does have a stable abdominal aortic aneurysm which is not symptomatic and not large enough to fix. She has had bilateral mastectomy secondary to breast cancer in the past. She also a history of colitis. Denies any history of myocardial far chills or strokes. Review of Systems Review of Systems: The remainder of the review of systems to include constitutional, HEENT, cardiovascular, respiratory, GI, , integumentary, musculoskeletal, endocrine, immunologic, hematologic, psychiatric, and neurologic are all negative except for which is mentioned above in the HPI. [facility] Past Medical History Medical History Aneurysm of infrarenal abdominal aorta Stable 4.0 cm fusiform aneurysm on CT of the abdomen and pelvis dated 12/07/2020. Breast cancer Status post radiation therapy and lumpectomy with subsequent bilateral mastectomy. Chronic obstructive pulmonary disease Colitis Diverticulosis Former smoker Gastroesophageal reflux disease (Unknown) Hyperlipidemia (Unknown) Hypertension (Unknown) Osteoarthritis Osteopenia Shingles (08/2020) Surgical History Surgical History History of bilateral mastectomy (04/2016) History of colonoscopy 2018 History of hysterectomy History of lumpectomy of left breast (07/2009) History of lumpectomy of right breast (11/2014) Status post cataract extraction of both eyes with insertion of intraocular lens (2014) Family History Family History Father Family history of malignant neoplasm of brain Family history of diabetes mellitus in first degree relative Malignant neoplasm of prostate Diabetes mellitus Mother Hypertension Patient's mother is Sibling Hypertension Patient's sister is in good health Family history of diabetes mellitus in first degree relative Diabetes mellitus Family history of malignant neoplasm of urinary bladder Family history of chronic obstructive pulmonary disease Dementia Other Family history of allergic disorder Family history of cardiovascular
--- NOTE | 2022-09-30 12:34 | PM.IMHP ---
H&P: HPI History of Present Illness Date/Time: 09/30/22 12:34 Chief Complaint: Abdominal pain Narrative: 76 year old patient with significant PMH of Breast CA with bilateral mastectomy in 2016 and radiation treatment thereafter, none recent, HTN, HLD, Diverticulitis, GERD, OA, Osteoporosis, shingles and COPD without current medication treatment. Pt had ct abdomen showing Cecal volvulus, as detailed above. Cecum is distended to approximately 9 cm in diameter. No pneumatosis or free air. 4.3 cm infrarenal abdominal aortic aneurysm, minimally increased from prior exam. Probable diffuse fatty infiltration of liver. Pt kept NPO with NG tube and IV fluids Pt seen by surgery MD admitted for small bowel and colonic obstruction secondary to cecal volvulus. And urgent laparotomy and right hemicolectomy is recommended Review of Systems Review of Systems: Severe abdomen pain Altering constipation and diarrhea for months No other complaints PMFSH Past Medical History Medical History Aneurysm of infrarenal abdominal aorta Stable 4.0 cm fusiform aneurysm on CT of the abdomen and pelvis dated 12/07/2020. Breast cancer Status post radiation therapy and lumpectomy with subsequent bilateral mastectomy. Chronic obstructive pulmonary disease Colitis Diverticulosis Former smoker Gastroesophageal reflux disease (Unknown) Hyperlipidemia (Unknown) Hypertension (Unknown) Osteoarthritis Osteopenia Shingles (08/2020) Surgical History Surgical History History of bilateral mastectomy (04/2016) History of colonoscopy 2018 History of hysterectomy History of lumpectomy of left breast (07/2009) History of lumpectomy of right breast (11/2014) Status post cataract extraction of both eyes with insertion of intraocular lens (2014) Family History Family History Father Family history of malignant neoplasm of brain Family history of diabetes mellitus in first degree relative Malignant neoplasm of prostate Diabetes mellitus Mother Hypertension Patient's mother is Sibling Hypertension Patient's sister is in good health Family history of diabetes mellitus in first degree relative Diabetes mellitus Family history of malignant neoplasm of urinary bladder Family history of chronic obstructive pulmonary disease Dementia Other Family history of allergic disorder Family history of cardiovascular disease Social History Social History Social History: The patient is and lives with her in [place]. She has no children. 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 Smoked 0.5 packs of cigarettes a day for many years and quit in early 2019. No alcohol or illicit substance abuse. She designates her or her sister, Phyllis Laguerre, as her surrogate decision makers. Code status: Full code. Smoking status: Former smoker Tobacco type: cigarettes Smoking end date: 04/04/19 Alcohol intake: current Drinks per week: 1 Substance use: never Substance use type: does not use Lack of Transportation: No Lack of Food: Never True Current Housing: I Have Housing Concerned About Future Housing: No Difficulty Paying Gas/Electric Bills: No Difficulty Paying for Meds: No Currently Unemployed: No Education: Bachelor's Degree Difficulty w/ Childcare or Family Care: No Living arrangements: with family Occupation/Education: retired Spiritual care concerns: No Meds Home Medications and Allergies Home Medications Medication Instructions Recorded Confirmed Type cholecalciferol (vitamin D3) 25 1,000 unit PO DAILY 05/02/19 09/30/22 History mcg (1,000 unit) capsule calcium carbonate 600 mg-vitamin 1 tablet PO DAILY 12/07/20 09/30/22 History D3 20 mcg
[2022-09-30] MEDS: PANTOPRAZOLE SODIUM IV 40 MG VIAL IV PUSH (14:26)
--- NOTE | 2022-09-30 17:04 | WPDHPUPDATE1 ---
History and Physical Update Update Date/Time: 09/30/22 17:04 History and Physical has been reviewed, including an updated exam of the patient. There are NO changes in the patient's condition. Risks, benefits, and alternatives have been discussed and questions answered. Patient agrees to proceed with procedure.
[2022-09-30] MEDS: LACTATED RINGERS 1,000 ML 30 ML IV CONT ×2 (17:30→19:51)
--- NOTE | 2022-09-30 17:38 | WPDANESEPPF ---
Anes - Initial Pre Proc Eval Procedure: Operation Date: 09/30/22 17:45 Proposed Procedures p Right Hemicolectomy - Brandon Mendoza MD Date/Time: 09/30/22 17:38 Surgeon: Merlin Godwin MD Pre Op Diagnosis: Cecal Volvulus Patient Data Age: 77 Gender: F Height: 1.73 m Weight: 76.4 kg Last Vital Signs Temp 37.1 C 09/30/22 17:20 Pulse 81 09/30/22 17:20 Resp 16 09/30/22 17:20 BP 126/58 L 09/30/22 17:20 Pulse Ox 98 09/30/22 17:20 O2 Del Method Room Air 09/30/22 17:20 Allergies Allergy/AdvReac Type Severity Reaction Status Date / Time adhesive Allergy Unknown Rash Verified 09/30/22 05:46 Penicillins Allergy Unknown Rash Verified 09/30/22 05:46 poison carol extract Allergy Unknown Rash Verified 09/30/22 05:46 Sulfa (Sulfonamide Allergy Unknown Rash Verified 09/30/22 05:46 Antibiotics) SKIN GLUE Allergy Unknown RASH Uncoded 09/30/22 05:46 ITCHING. Home Medications Medication Instructions Recorded Confirmed Type cholecalciferol (vitamin D3) 25 1,000 unit PO DAILY 05/02/19 09/30/22 History mcg (1,000 unit) capsule calcium carbonate 600 mg-vitamin 1 tablet PO DAILY 12/07/20 09/30/22 History D3 20 mcg (800 unit) chewable tablet (Caltrate 600 plus D) aspirin 81 mg chewable tablet 81 mg PO DAILY@0800 #3 tabs 05/29/21 09/30/22 Rx (Children's Aspirin) amlodipine 10 mg tablet 10 mg PO DAILY 09/30/22 09/30/22 History atorvastatin 10 mg tablet 10 mg PO DAILY 09/30/22 09/30/22 History lisinopril 40 mg tablet 40 mg PO DAILY 09/30/22 09/30/22 History omeprazole magnesium 20 mg 20 mg PO DAILY 09/30/22 09/30/22 History capsule,delayed release (Acid Web Content & Social Media Manager (omeprazole)) Laboratory Tests 09/29/22 09/30/22 23:58 02:48 WBC 12.1 H K/mm3 (4.5-10.0) RBC 3.82 L M/mm3 (4.2-5.4) Hgb 12.6 g/dL (12.0-15.0) Hct 37.6 % (37.0-47.0) MCV 98.4 fl (80-100) MCH 33.0 pg (26-34) MCHC 33.5 g/dl (32-36) RDW 12.8 % (11.5-14.5) Plt Count 234 k/mm3 (150-375) MPV 9.9 fl (7.4-10.4) Immature Gran % (Auto) 0.4 % (0-0.5) Neut % (Auto) 60.6 % (45.5-73.1) Lymph % (Auto) 29.0 % (18.3-44.2) [place] % (Auto) 7.9 % (2.6-8.5) Eos % (Auto) 1.6 % (0-4.4) Baso % (Auto) 0.5 % (0.2-1.2) Lymph # (Auto) 3.51 H K/mm3 (0.9-3.2) [place] # (Auto) 1.0 H K/mm3 (0.1-0.6) Eos # (Auto) 0.2 K/mm3 (0-0.3) Baso # (Auto) 0.1 K/mm3 (0.0-0.1) Abs Immat Gran (auto) 0.05 H K/mm3 (0.00-0.031) Absolute Neuts (auto) 7.4 H K/mm3 (1.3-6.7) Absolute Nucleated RBC 0.0 K/mm3 (0.0-0.012) Nucleated RBC % 0.0 % (0.0-0.2) PT 13.3 Seconds (11.1-14.7) INR 1.0 APTT 28.7 SECONDS (22.3-36.8) Sodium 136 L mmol/L (137-145) Potassium 4.1 mmol/L (3.4-5.0) Chloride 102 mmol/L (98-107) Carbon Dioxide 27 mmol/L (22-30) Anion Gap 7 L mmol/L (8-16) BUN 19 H mg/dL (7-17) Creatinine 1.00 mg/dL (0.7-1.0) Estim Creat Clear Calc 42 ml/min Estimated GFR 54 L (59 - ) Glucose 113 H mg/dL (65-110) Lactic Acid 1.4 mmol/L (0.7-2.0) Calcium 10.1 mg/dL (8.4-10.2) Total Bilirubin 0.4 mg/dL (0.2-1.3) AST 40 H U/L (14-36) ALT 37 H U/L (6-35) Alkaline Phosphatase 108 U/L (38-126) Troponin I < 0.012 ng/mL (0.000-0.034) Total Protein 8.0 g/dL (6.3-8.2) Albumin 4.6 g/dL (3.5-5.1) Blood Type O Negative Antibody Screen Negative Patient hx anesthesia problems: none Family hx anesthesia problems: none Results Review: All pre-operative results and documents have been reviewed as part of the pre-operative evaluation. [facility] Past Medical History Medical History Aneurysm of infrarenal abdo
--- NOTE | 2022-09-30 19:22 | W.PM.PROC2 ---
Procedure Note - Detailed Date of Procedure 09/30/22 Pre-op Diagnosis Cecal Volvulus Post-op Diagnosis Same Procedure Performed Open right hemicolectomy with stapled [id number] ileocolic anastomosis Surgeon Brandon Mendoza MD Data Migration Lead VENK[facility] Arana Anesthesia General Indications Patient is a 77-year-old white female was admitted to the hospital yesterday with abdominal pain and nausea and vomiting with a clinical picture of bowel obstruction. She underwent a CT scan which showed a cecal volvulus but no evidence of ischemic bowel or perforation of the bowel. She was started IV antibiotics and decompressed with a nasogastric tube. She is being brought to the operating now for an emergent exploratory laparotomy with right hemicolectomy for her cecal volvulus to relieve the obstruction. Findings Patient is cecal volvulus with the cecum in the left upper quadrant of the abdomen. It had turned 720? and 2 complete rotations causing obstruction of the terminal ileum and proximal ascending colon. The cecum and right colon was on a long floppy mesentery. No perforation of bowel or ischemic bowel was noted. Description of Procedure After informed consent was obtained patient brought to the operating room she was placed supine position and general endotracheal anesthesia was administered. A Vasquez catheter placed decompress the bladder. A nasogastric tube was already in place. The abdomen was then prepped and draped usual sterile fashion. A time-out was then performed correctly identifying the patient as well as procedure to be performed. She was already on scheduled IV antibiotics. I then made a limited midline incision starting just above the umbilicus extending just below the umbilicus. The length incision was about 8 to 10 cm. I then dissected down through the subcutaneous tissue electrocautery then entered the abdomen at the umbilicus dividing the fascia in this area. I then opened the fascia to match the length of the skin incision. I then placed a Queta retractor the aid with exposure with the bladder blade. I then eviscerated the small bowel and identified the cecum in the left upper quadrant. Cecum was exteriorized from the abdomen and I found that the cecum had turned twice with complete rotations for a 720 degree cecal volvulus. There was no compromise of the vasculature and there was no ischemic bowel or perforation. I then de torsed the cecum and terminal ileum. I then proceeded to mobilize the right ascending colon by incising the lateral peritoneum at the right lower quadrant extending it around the hepatic flexure. Electrocautery and LigaSure energy device dissection was used to divide the peritoneal reflection and mobilized the right colon to the midline. Great care was taken to make sure that the duodenum was preserved without any injury. The hepatocolic ligaments were divided with the LigaSure device as was the attachments to the right side of the omentum. Once I had the hepatic flexure mobilized the midline I then decided to divide the bowel. Just about 2 to 3 cm proximal to the ileocecal valve made a defect through the mesentery with electrocautery and then used a JAN 75 stapler to divide the terminal ileum at this point. Distally in the mid transverse colon I made a defect through the mesentery and divided the colon in this area utilizing a reload to the GI 75 stapler. The mesentery between the 2 resection points was then divided utilizing the LigaSure device until l encountered the ileocolic pedicle which I skeletonized the vessels utilizing electrocautery and then separately ligated the ileocolic artery and vein with a 2-0 silk stick tie and divided with scissors. The specimen was then passed off table sent to pathology for examination. I then proceeded to perform a [id number] anti peristaltic ileocolic anastomosis. The 2 ends of the bowel were then approximated in a [id number] fashion 3-0 silk seromuscular stay sutures
[2022-09-30] MEDS: fentaNYL CITRATE INJ (*CRX) 100 MCG/2 ML VIAL 25 MCG IV PUSH ×4 (19:30→19:42)
[2022-09-30] MEDS: HYDROmorphone HCL INJ (*CRX) 1 MG/ML SYR 0.25 MG IV PUSH ×5 (19:50→20:45)
[2022-09-30] MEDS: MIDAZOLAM HCL (*CRX) 2 MG/2 ML VIAL 0.5 MG IV PUSH ×2 (20:05→20:33)
--- NOTE | 2022-09-30 21:00 | PCDIET ---
Returned from OR via bed. Report received from DEEPTHI REEVES.
[2022-09-30] MEDS: diazePAM INJ (*CRX) 10 MG/2 ML SYRINGE 5 MG IV PUSH (22:08)
[2022-09-30] MEDS: IBUPROFEN IV 800 MG/200 ML 800 MG/200 ML BAG 400 MG IVPB (22:09)
[2022-09-30] MEDS: ENOXAPARIN 40 MG/0.4 ML SYRINGE SUB-Q (22:14)
[2022-10-01] MEDS: HYDROmorphone HCL INJ (*CRX) 1 MG/ML SYR IV PUSH ×3 (00:31→09:32)
[2022-10-01] MEDS: IBUPROFEN IV 800 MG/200 ML 800 MG/200 ML BAG 400 MG IVPB ×3 (05:28→22:01)
[2022-10-01 05:36] LABS: Basophils Absolute Auto 0.1 K/mm3 (0.0-0.1); Basophils Percent Auto 0.3 % (0.2-1.2); Hematocrit 36.3 % (37.0-47.0); Immature Granulocyte Absolute 0.16 K/mm3 (0.00-0.031); Immature Granulocyte Percent A 0.8 % (0-0.5); Lymphocytes Absolute Auto 1.05 K/mm3 (0.9-3.2); Mean Corpuscular HGB Conc 33.1 g/dl (32-36); Mean Corpuscular Hemoglobin 32.7 pg (26-34); Mean Corpuscular Volume 98.9 fl (80-100); Mean Platelet Volume 9.8 fl (7.4-10.4); Monocytes Absolute Auto 1.1 K/mm3 (0.1-0.6); Monocytes Percent Auto 5.3 % (2.6-8.5); Neutrophils Absolute Auto 18.6 K/mm3 (1.3-6.7); Neutrophils Percent Auto 88.6 % (45.5-73.1); Platelet Count Result 232 k/mm3 (150-375); Red Blood Count 3.67 M/mm3 (4.2-5.4); Red Cell Distribution Width 12.6 % (11.5-14.5); White Blood Count 20.9 K/mm3 (4.5-10.0)
[2022-10-01 05:50] LABS: Anion Gap 9 mmol/L (8-16); Blood Urea Nitrogen 14 mg/dL (7-17); Carbon Dioxide 24 mmol/L (22-30); Chloride 99 mmol/L (98-107); Estimated CRCL calculation 46 ml/min; Estimated Glomerular Filt Rate > 60; Glucose 155 mg/dL (65-110); Sodium 132 mmol/L (137-145)
[2022-10-01 06:00] VITALS: BP 104/52; PULSE 79; RESP 18; TEMP 35.9; O2SAT 94
--- NOTE | 2022-10-01 07:57 | WPDANESPN ---
Anes - Prog Note Post-Op Date/Time: 10/01/22 07:57 Vital Signs: Last Vital Signs Temp 35.9 C L 10/01/22 06:00 Pulse 79 10/01/22 06:00 Resp 18 10/01/22 06:00 BP 104/52 L 10/01/22 06:00 Pulse Ox 94 10/01/22 06:00 O2 Del Method Nasal Cannula 09/30/22 20:45 O2 Flow Rate 2 09/30/22 20:45 Pain Score (VAS): 2 I/O: Intake & Output 09/30/22 09/30/22 10/01/22 15:59 23:59 07:59 Intake Total 1100 1250 650 Output Total 600 4100 Balance 1100 650 -3450 Laboratory Tests 10/01/22 05:30 10/01/22 05:30 10/01/22 05:30 WBC 20.9 H RBC 3.67 L Hgb 12.0 Hct 36.3 L MCV 98.9 MCH 32.7 MCHC 33.1 RDW 12.6 Plt Count 232 MPV 9.8 Immature Gran % (Auto) 0.8 H Neut % (Auto) 88.6 H Lymph % (Auto) 5.0 L [place] % (Auto) 5.3 Eos % (Auto) 0.0 Baso % (Auto) 0.3 Lymph # (Auto) 1.05 [place] # (Auto) 1.1 H Eos # (Auto) 0.0 Baso # (Auto) 0.1 Abs Immat Gran (auto) 0.16 H Absolute Neuts (auto) 18.6 H Absolute Nucleated RBC 0.0 Nucleated RBC % 0.0 Sodium 132 L Potassium 4.0 Chloride 99 Carbon Dioxide 24 Anion Gap 9 BUN 14 D Creatinine 0.90 Estim Creat Clear Calc 46 Estimated GFR > 60 Glucose 155 H Calcium 9.0 Patient Feedback: Patient satisfied with anesthetic care.
[2022-10-01 08:06] VITALS: PULSE 70; RESP 18; O2SAT 92
--- NOTE | 2022-10-01 09:14 | PM.PNGS ---
Progress Note: A&P Assessment and Plan (1) Cecal volvulus: Code(s): K56.2 - Volvulus Status: Acute Assessment and Plan: Resolved after right hemicolectomy. She is doing well today is tolerating liquids. We will advance her to full liquids this evening. Continue supportive management today. If having some bowel function tomorrow then can probably advance to regular diet and hopefully discharge sometime this weekend. White blood cell count elevated 20,000 today but most likely secondary to stress response of surgery. Will trend the white blood cell count with a repeat CBC tomorrow. PT and OT consult to evaluate the patient. Not likely to need halfway facility after surgery but might need home PT and OT. Subjective Subjective Date/Time Seen: 10/01/22 09:14 Post Op day: 1 (Day 1, status post open right hemicolectomy) Interval history: Patient is doing well this morning. She is sitting up drinking some clear liquids without too much nausea. No flatus or bowel movement yet. Pain is well controlled with a combination of scheduled IV ibuprofen and oral Tylenol with backup IV Dilaudid or oral oxycodone. She is able to get to the bathroom with a walker and health aide. Exam GI: Other: Abdomen soft mildly distended. Expected mild tenderness around the incision with palpation. No redness or drainage from the midline incision. Rhett in place. Decreased bowel sounds. Objective Data Vital Signs Vital Signs: Vital Signs - 24 hr 09/30/22 09:58 09/30/22 14:00 09/30/22 17:20 Temperature 36.9 C 37.1 C Pulse Rate 82 81 Respiratory Rate 18 16 Blood Pressure 125/62 126/58 L Pulse Oximetry 97 98 Oxygen Delivery Room Air Room Air Oxygen Flow Rate Fraction of Inspired Oxygen 09/30/22 19:18 09/30/22 19:30 09/30/22 19:45 Temperature 36.4 C Pulse Rate 94 86 89 Respiratory Rate 17 12 16 Blood Pressure 113/64 128/73 156/97 H Pulse Oximetry 100 100 99 Oxygen Delivery Simple Face Mask Room Air Room Air Oxygen Flow Rate 10 Fraction of Inspired Oxygen 09/30/22 20:00 09/30/22 20:15 09/30/22 20:30 Temperature Pulse Rate 98 85 80 Respiratory Rate 21 H 13 12 Blood Pressure 118/90 136/62 124/74 Pulse Oximetry 98 100 99 Oxygen Delivery Room Air Nasal Cannula Nasal Cannula Oxygen Flow Rate 2 2 Fraction of Inspired Oxygen 09/30/22 20:45 09/30/22 21:00 09/30/22 21:15 Temperature 36.2 C L 36.0 C L Pulse Rate 89 80 80 Respiratory Rate 16 18 16 Blood Pressure 124/70 124/59 L 129/66 Pulse Oximetry 99 97 99 Oxygen Delivery Nasal Cannula Oxygen Flow Rate 2 Fraction of Inspired Oxygen 09/30/22 21:50 09/30/22 23:15 10/01/22 06:00 Temperature 36.1 C L 36.1 C L 35.9 C L Pulse Rate 90 82 79 Respiratory Rate 18 16 18 Blood Pressure 126/63 127/64 104/52 L Pulse Oximetry 98 99 94 Oxygen Delivery Oxygen Flow Rate Fraction of Inspired Oxygen 10/01/22 08:06 Temperature Pulse Rate 70 Respiratory Rate 18 Blood Pressure Pulse Oximetry 92 Oxygen Delivery Room Air Oxygen Flow Rate Fraction of Inspired Oxygen 21 Intake/Output Intake/Output: Intake & Output 09/28/22 09/29/22 09/30/22 10/01/22 23:59 23:59 23:59 23:59 Intake Total 2500 650 Output Total 600 4100 Balance 1900 -3450 Meds/Results Medications: Active Medications Generic Name Dose Route Start Last Admin Trade Name Emanuelq PRN Reason Stop Dose Admin Acetaminophen 1,000 mg 09/30/22 20:54 Acetaminophen 500 Mg Tablet PO Q6H PRN Mild Pain (1-3) or Fever Alvimopan 12 mg 10/01/22 09:00 Alvimopan 12 Mg Capsule PO Q12HR [facility] Amlodipine Besylate 10 mg 10/01/22 09:00 Amlodipine Besylate 5 Mg Tablet PO DAILY [facility] Aspirin 81 mg 10/01/22 08:00 Aspirin 81 Mg Chewable Tablet PO DAILY@0800 [facility] Atorvastatin Calcium 10 mg 10/01/22 09:00 Atorvastatin 10 Mg Tablet PO DAILY [facility] Calcium Carbonate 500 mg 10/01/22 09:00
--- NOTE | 2022-10-01 09:19 | PM.IMPN ---
Progress Note: A&P Assessment and Plan (1) Cecal volvulus: Code(s): K56.2 - Volvulus Status: Acute Assessment and Plan: Postop day 1 from right hemicolectomy 09/30 (2) Aneurysm of infrarenal abdominal aorta: Code(s): I71.4 - Abdominal aortic aneurysm, without rupture Status: Acute Assessment and Plan: Chronic history follows vascular surgeon CT shows - 4.3 cm infrarenal abdominal aortic aneurysm, minimally increased from prior exam. Plan DVT prophylaxis with Lovenox GI prophylaxis not indicated Code status full code Subjective Date/time seen: 10/01/22 09:19 Interval history: No overnight events noted. No chest pain or shortness of breath. No nausea, vomiting or diarrhea. No fevers or chills. Still with incisional pain, tender RLQ. No BM, no flatus Review of Systems Review of Systems: 12 point review of systems was assessed and was negative except as noted in the HPI Exam Narrative: General: No acute distress, alert and oriented per baseline HEENT: Atraumatic, normocephalic, mucous membranes moist CV: Regular rate and rhythm, S1, S2 Lungs: Clear to auscultation bilaterally, no rales or crackles noted, no wheezes, good air entry Abdomen: Soft, ND, no BS noted, TTP RLQ Extremities: Normal to inspection Skin: No rashes noted, no lesions or wounds seen Psych: Euthymic, normal affect Objective Data Vital Signs Vital Signs: Vital Signs - 24 hr 09/30/22 09:58 09/30/22 14:00 09/30/22 17:20 Temperature 98.4 F 98.8 F Pulse Rate 82 81 Respiratory Rate 18 16 Blood Pressure 125/62 126/58 L Pulse Oximetry 97 98 Oxygen Delivery Room Air Room Air Oxygen Flow Rate Fraction of Inspired Oxygen 09/30/22 19:18 09/30/22 19:30 09/30/22 19:45 Temperature 97.6 F Pulse Rate 94 86 89 Respiratory Rate 17 12 16 Blood Pressure 113/64 128/73 156/97 H Pulse Oximetry 100 100 99 Oxygen Delivery Simple Face Mask Room Air Room Air Oxygen Flow Rate 10 Fraction of Inspired Oxygen 09/30/22 20:00 09/30/22 20:15 09/30/22 20:30 Temperature Pulse Rate 98 85 80 Respiratory Rate 21 H 13 12 Blood Pressure 118/90 136/62 124/74 Pulse Oximetry 98 100 99 Oxygen Delivery Room Air Nasal Cannula Nasal Cannula Oxygen Flow Rate 2 2 Fraction of Inspired Oxygen 09/30/22 20:45 09/30/22 21:00 09/30/22 21:15 Temperature 97.1 F L 96.8 F L Pulse Rate 89 80 80 Respiratory Rate 16 18 16 Blood Pressure 124/70 124/59 L 129/66 Pulse Oximetry 99 97 99 Oxygen Delivery Nasal Cannula Oxygen Flow Rate 2 Fraction of Inspired Oxygen 09/30/22 21:50 09/30/22 23:15 10/01/22 06:00 Temperature 97.0 F L 97.0 F L 96.6 F L Pulse Rate 90 82 79 Respiratory Rate 18 16 18 Blood Pressure 126/63 127/64 104/52 L Pulse Oximetry 98 99 94 Oxygen Delivery Oxygen Flow Rate Fraction of Inspired Oxygen 10/01/22 08:06 Temperature Pulse Rate 70 Respiratory Rate 18 Blood Pressure Pulse Oximetry 92 Oxygen Delivery Room Air Oxygen Flow Rate Fraction of Inspired Oxygen 21 Intake/Output Intake/Output: Intake & Output 09/28/22 09/29/22 09/30/22 10/01/22 23:59 23:59 23:59 23:59 Intake Total 2500 650 Output Total 600 4100 Balance 1900 -3450 Meds/Results Medications: Active Medications Generic Name Dose Route Start Last Admin Trade Name Ariadne PRN Reason Stop Dose Admin Acetaminophen 1,000 mg 09/30/22 20:54 Acetaminophen 500 Mg Tablet PO Q6H PRN Mild Pain (1-3) or Fever Alvimopan 12 mg 10/01/22 09:00 Alvimopan 12 Mg Capsule PO Q12HR [facility] Amlodipine Besylate 10 mg 10/01/22 09:00 Amlodipine Besylate 5 Mg Tablet PO DAILY [facility] Aspirin 81 mg 10/01/22 08:00 Aspirin 81 Mg Chewable Tablet PO DAILY@0800 [facility] Atorvastatin Calcium 10 mg 10/01/22 09:00 Atorvastatin 10 Mg Tablet PO DAILY [facility] Calcium Carbonate 500 mg 10/01/22 09:00 Calcium/Vitamin D 500 Mg Tablet PO
[2022-10-01] MEDS: LACTATED RINGERS 1,000 ML 75 ML IV CONT ×2 (09:27→22:02)
[2022-10-01] MEDS: diazePAM (*CRX) 5 MG TABLET PO (09:27)
[2022-10-01] MEDS: CHOLECALCIFEROL 1,000 UNITS TABLET 1000 UNITS PO (09:28)
[2022-10-01] MEDS: lisinopriL 20 MG TABLET 40 MG PO (09:28)
[2022-10-01] MEDS: ALVIMOPAN 12 MG CAPSULE PO ×2 (09:28→19:56)
[2022-10-01] MEDS: ATORVASTATIN 10 MG TABLET PO (09:28)
[2022-10-01] MEDS: ASPIRIN 81 MG CHEWABLE TABLET PO (09:29)
[2022-10-01] MEDS: ENOXAPARIN 40 MG/0.4 ML SYRINGE SUB-Q (09:29)
[2022-10-01] MEDS: PANTOPRAZOLE 40 MG TABLET PO (09:29)
[2022-10-01] MEDS: oxyCODONE HCL (*CRX) 5 MG TAB IR PO ×2 (12:20→19:55)
[2022-10-01 14:00] VITALS: BP 106/54; PULSE 76; RESP 16; TEMP 36.4; O2SAT 98
--- NOTE | 2022-10-01 16:06 | PCPTNOTE ---
On 10/01/22, the student, [Kirsty Cano], provided care and completed [facility] documentation on this patient. I have reviewed the student's documentation and agree with the findings.
[2022-10-01 20:06] VITALS: O2SAT 94
[2022-10-01 20:22] VITALS: BP 120/80; PULSE 90; RESP 18; TEMP 36.7; O2SAT 93
[2022-10-02] MEDS: oxyCODONE HCL (*CRX) 5 MG TAB IR PO ×3 (01:50→20:13)
[2022-10-02] MEDS: HYDROmorphone HCL INJ (*CRX) 1 MG/ML SYR IV PUSH (03:56)
[2022-10-02 04:34] VITALS: BP 101/49; PULSE 83; RESP 18; TEMP 36.5; O2SAT 100
[2022-10-02 05:20] LABS: Hematocrit 28.8 % (37.0-47.0); Hemoglobin 9.7 g/dL (12.0-15.0); Mean Corpuscular HGB Conc 33.7 g/dl (32-36); Mean Corpuscular Hemoglobin 32.9 pg (26-34); Mean Corpuscular Volume 97.6 fl (80-100); Mean Platelet Volume 10.3 fl (7.4-10.4); Platelet Count Result 176 k/mm3 (150-375); Red Blood Count 2.95 M/mm3 (4.2-5.4); Red Cell Distribution Width 12.9 % (11.5-14.5); White Blood Count 12.5 K/mm3 (4.5-10.0)
[2022-10-02 05:33] LABS: Anion Gap 5 mmol/L (8-16); Blood Urea Nitrogen 14 mg/dL (7-17); Calcium 8.5 mg/dL (8.4-10.2); Carbon Dioxide 27 mmol/L (22-30); Chloride 97 mmol/L (98-107); Estimated CRCL calculation 52 ml/min; Estimated Glomerular Filt Rate > 60; Glucose 117 mg/dL (65-110); Potassium 3.5 mmol/L (3.4-5.0); Sodium 129 mmol/L (137-145)
[2022-10-02] MEDS: IBUPROFEN IV 800 MG/200 ML 800 MG/200 ML BAG 400 MG IVPB ×3 (05:56→22:05)
[2022-10-02] MEDS: ASPIRIN 81 MG CHEWABLE TABLET PO (08:04)
[2022-10-02] MEDS: amLODIPine BESYLATE 5 MG TABLET 10 MG PO (08:04)
[2022-10-02] MEDS: ALVIMOPAN 12 MG CAPSULE PO ×2 (08:06→20:10)
[2022-10-02] MEDS: CHOLECALCIFEROL 1,000 UNITS TABLET 1000 UNITS PO (08:06)
[2022-10-02] MEDS: ATORVASTATIN 10 MG TABLET PO (08:06)
[2022-10-02] MEDS: PANTOPRAZOLE 40 MG TABLET PO (08:06)
[2022-10-02] MEDS: ENOXAPARIN 40 MG/0.4 ML SYRINGE SUB-Q (08:06)
[2022-10-02] MEDS: lisinopriL 20 MG TABLET 40 MG PO (08:06)
[2022-10-02] MEDS: diazePAM (*CRX) 5 MG TABLET PO ×2 (08:17→16:53)
--- NOTE | 2022-10-02 08:41 | PM.IMPN ---
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 D/c IVF (2) Aneurysm of infrarenal abdominal aorta: Code(s): I71.4 - Abdominal aortic aneurysm, without rupture Status: Acute Assessment and Plan: Chronic history follows vascular surgeon CT shows - 4.3 cm infrarenal abdominal aortic aneurysm, minimally increased from prior exam Plan DVT prophylaxis with Lovenox GI prophylaxis not indicated Code status full code Subjective Date/time seen: 10/02/22 08:41 Interval history: No overnight events noted. No chest pain or shortness of breath. No nausea, vomiting or diarrhea. No fevers or chills. Still with some abdominal discomfort and distention. No flatus or bowel movement yet. Review of Systems Review of Systems: 12 point review of systems was assessed and was negative except as noted in the HPI Exam Narrative: General: No acute distress, alert and oriented per baseline HEENT: Atraumatic, normocephalic, mucous membranes moist CV: Regular rate and rhythm, S1, S2 Lungs: Clear to auscultation bilaterally, no rales or crackles noted, no wheezes, good air entry Abdomen: Soft, ND, TTP RLQ, BS noted throughout Extremities: Normal to inspection Skin: No rashes noted, no lesions or wounds seen Psych: Euthymic, normal affect Objective Data Vital Signs Vital Signs: Vital Signs - 24 hr 10/01/22 09:45 10/01/22 14:00 10/01/22 14:45 Temperature 97.5 F L Pulse Rate 76 Respiratory Rate 16 Blood Pressure 106/54 L Pulse Oximetry 98 Oxygen Delivery Room Air Room Air 10/01/22 20:22 10/02/22 04:34 10/01/22 20:06 Temperature 98.1 F 97.7 F Pulse Rate 90 83 Respiratory Rate 18 18 Blood Pressure 120/80 101/49 L Pulse Oximetry 93 100 94 Oxygen Delivery Room Air Intake/Output Intake/Output: Intake & Output 09/29/22 09/30/22 10/01/22 10/02/22 23:59 23:59 23:59 23:59 Intake Total 2500 3890 200 Output Total 600 4850 1150 Balance 7060 -890 -080 Meds/Results Medications: Active Medications Generic Name Dose Route Start Last Admin Trade Name Freq PRN Reason Stop Dose Admin Acetaminophen 1,000 mg 09/30/22 20:54 Acetaminophen 500 Mg Tablet PO Q6H PRN Mild Pain (1-3) or Fever Alvimopan 12 mg 10/01/22 09:00 10/02/22 08:06 Alvimopan 12 Mg Capsule PO 12 mg Q12HR [facility] Administration Amlodipine Besylate 10 mg 10/01/22 09:00 10/02/22 08:04 Amlodipine Besylate 5 Mg Tablet PO 10 mg DAILY [facility] Administration Aspirin 81 mg 10/01/22 08:00 10/02/22 08:04 Aspirin 81 Mg Chewable Tablet PO 81 mg DAILY@0800 [facility] Administration Atorvastatin Calcium 10 mg 10/01/22 09:00 10/02/22 08:06 Atorvastatin 10 Mg Tablet PO 10 mg DAILY [facility] Administration Calcium Carbonate 500 mg 10/01/22 09:00 10/02/22 08:04 Calcium/Vitamin D 500 Mg Tablet PO 500 mg DAILY [facility] Administration Diazepam 5 mg 10/01/22 09:00 10/02/22 08:17 Diazepam (*Crx) 5 Mg Tablet PO 5 mg BID [facility] Administration Enoxaparin Sodium 40 mg 09/30/22 21:00 10/02/22 08:06 Enoxaparin 40 Mg/0.4 Ml Syringe SUB-Q 40 mg DAILY [facility] Administration Hydromorphone HCl 1 mg 09/30/22 20:54 10/02/22 03:56 Hydromorphone Hcl Inj (*Crx) 1 Mg/Ml Syr IV PUSH 1 mg Q3H PRN Administration Pain Rated 7-10 Ibuprofen 800 mg in 200 mls @ 400 mls/hr 09/30/22 22:00 10/02/22 06:26 Caldolor 800 Mg/200 Ml IVPB Infused Q8H [facility] Infusion Lactated Ringer's 1,000 mls @ 75 mls/hr 10/01/22 09:10 10/01/22 22:02 Lr - Lactated Ringers Iv IV CONT 75 mls/hr .[id number] [facility] Administration Lisinopril 40 mg 10/01/22 09:00 07/01/23 08:06 Lisinopril 20 Mg Tablet PO 40 mg RAY
--- NOTE | 2022-10-02 13:58 | PM.PNGS ---
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 No BM or flatus yet. Still having some abdominal pain. Exam GI: Inspection: distended and incision (Intact with astrid) GI Palp: Yes Tenderness to palpation present (GI) (Incisional), No Guarding due to palpation present (GI) and No Rebound tenderness present Auscultation: Hypoactive bowel sounds present Objective Data Vital Signs Vital Signs: Vital Signs - 24 hr 10/01/22 14:00 10/01/22 14:45 10/01/22 20:22 Temperature 36.4 C L 36.7 C Pulse Rate 76 90 Respiratory Rate 16 18 Blood Pressure 106/54 L 120/80 Pulse Oximetry 98 93 Oxygen Delivery Room Air 10/02/22 04:34 10/01/22 20:06 10/02/22 08:00 Temperature 36.5 C Pulse Rate 83 Respiratory Rate 18 Blood Pressure 101/49 L Pulse Oximetry 100 94 Oxygen Delivery Room Air Room Air 10/02/22 09:43 Temperature Pulse Rate Respiratory Rate Blood Pressure Pulse Oximetry Oxygen Delivery Room Air Intake/Output Intake/Output: Intake & Output 09/29/22 09/30/22 10/01/22 10/02/22 23:59 23:59 23:59 23:59 Intake Total 2500 3890 680 Output Total 600 4850 1150 Balance 1900 -960 -470 Meds/Results Medications: Active Medications Generic Name Dose Route Start Last Admin Trade Name Freq PRN Reason Stop Dose Admin Acetaminophen 1,000 mg 09/30/22 20:54 Acetaminophen 500 Mg Tablet PO Q6H PRN Mild Pain (1-3) or Fever Alvimopan 12 mg 10/01/22 09:00 10/02/22 08:06 Alvimopan 12 Mg Capsule PO 12 mg Q12HR [facility] Administration Amlodipine Besylate 10 mg 10/01/22 09:00 10/02/22 08:04 Amlodipine Besylate 5 Mg Tablet PO 10 mg DAILY [facility] Administration Aspirin 81 mg 10/01/22 08:00 10/02/22 08:04 Aspirin 81 Mg Chewable Tablet PO 81 mg DAILY@0800 [facility] Administration Atorvastatin Calcium 10 mg 10/01/22 09:00 10/02/22 08:06 Atorvastatin 10 Mg Tablet PO 10 mg DAILY [facility] Administration Bisacodyl 10 mg 10/02/22 13:57 Bisacodyl 10 Mg Suppository RECTAL 10/02/22 13:58 ONCE ONE Calcium Carbonate 500 mg 10/01/22 09:00 10/02/22 08:04 Calcium/Vitamin D 500 Mg Tablet PO 500 mg DAILY [facility] Administration Diazepam 5 mg 10/01/22 09:00 10/02/22 08:17 Diazepam (*Crx) 5 Mg Tablet PO 5 mg BID [facility] Administration Enoxaparin Sodium 40 mg 09/30/22 21:00 10/02/22 08:06 Enoxaparin 40 Mg/0.4 Ml Syringe SUB-Q 40 mg DAILY [facility] Administration Hydromorphone HCl 1 mg 09/30/22 20:54 10/02/22 03:56 Hydromorphone Hcl Inj (*Crx) 1 Mg/Ml Syr IV PUSH 1 mg Q3H PRN Administration Pain Rated 7-10 Ibuprofen 800 mg in 200 mls @ 400 mls/hr 09/30/22 22:00 10/02/22 13:47 Caldolor 800 Mg/200 Ml IVPB 400 mls/hr Q8H [facility] Administration Lisinopril 40 mg 10/01/22 09:00 10/02/22 08:06 Lisinopril 20 Mg Tablet PO 40 mg DAILY [facility] Administration Ondansetron HCl 4 mg 09/30/22 04:09 09/30/22 14:53 Ondansetron Inj 4 Mg/2 Ml Vial IV PUSH 4 mg Q4H PRN Administration Nausea Oxycodone HCl 5 mg 09/30/22 20:54 10/02/22 12:14 Oxycodone Hcl (*Crx) 5 Mg Tab Ir PO 5 mg Q4H PRN Administration Pain Rated 7-10 Pantoprazole Sodium 40 mg 10/01/22 09:00 10/02/22 08:06 Pantoprazole 40 Mg Tablet PO 40 mg QAM [facility] Administration Vitamin D 1,000 units 10/01/22 09:00 10/02/22 08:06 Cholecalciferol 1,000 Units Tablet PO 1,000 units DAILY [facility] Administration Radiology Results: ITS Impressions Chest/Abdomen/Pelvis CTA 09/30/22 05:47 Impression: Cecal volvulus, as detailed above. Cecum is distended to approximately 9 cm
[2022-10-02 14:00] VITALS: BP 121/68; PULSE 101; RESP 16; TEMP 36.3; O2SAT 96
[2022-10-02] MEDS: BISACODYL 10 MG SUPPOSITORY RECTAL (17:28)
[2022-10-02 20:25] VITALS: O2SAT 94
[2022-10-02 22:00] VITALS: BP 122/66; PULSE 90; RESP 16; TEMP 37; O2SAT 94
[2022-10-03] MEDS: oxyCODONE HCL (*CRX) 5 MG TAB IR PO ×4 (04:36→20:09)
[2022-10-03 05:38] LABS: Hematocrit 29.7 % (37.0-47.0); Hemoglobin 9.6 g/dL (12.0-15.0); Mean Corpuscular HGB Conc 32.3 g/dl (32-36); Mean Platelet Volume 10.4 fl (7.4-10.4); Platelet Count Result 187 k/mm3 (150-375); Red Cell Distribution Width 13.2 % (11.5-14.5); White Blood Count 9.6 K/mm3 (4.5-10.0)
[2022-10-03 05:46] LABS: Anion Gap 2 mmol/L (8-16); Blood Urea Nitrogen 10 mg/dL (7-17); Calcium 8.9 mg/dL (8.4-10.2); Carbon Dioxide 33 mmol/L (22-30); Chloride 101 mmol/L (98-107); Estimated CRCL calculation 46 ml/min; Estimated Glomerular Filt Rate > 60; Glucose 101 mg/dL (65-110); Potassium 3.3 mmol/L (3.4-5.0); Sodium 136 mmol/L (137-145)
[2022-10-03] MEDS: IBUPROFEN IV 800 MG/200 ML 800 MG/200 ML BAG 400 MG IVPB ×3 (05:55→20:10)
[2022-10-03 06:00] VITALS: BP 132/65; PULSE 82; RESP 16; TEMP 35.9; O2SAT 93
[2022-10-03] MEDS: ASPIRIN 81 MG CHEWABLE TABLET PO (08:34)
[2022-10-03] MEDS: ATORVASTATIN 10 MG TABLET PO (08:34)
[2022-10-03] MEDS: ALVIMOPAN 12 MG CAPSULE PO ×2 (08:34→20:09)
[2022-10-03] MEDS: lisinopriL 20 MG TABLET 40 MG PO (08:34)
[2022-10-03] MEDS: diazePAM (*CRX) 5 MG TABLET PO ×2 (08:34→17:19)
[2022-10-03] MEDS: CHOLECALCIFEROL 1,000 UNITS TABLET 1000 UNITS PO (08:34)
[2022-10-03] MEDS: PANTOPRAZOLE 40 MG TABLET PO (08:34)
[2022-10-03] MEDS: ENOXAPARIN 40 MG/0.4 ML SYRINGE SUB-Q (08:34)
[2022-10-03] MEDS: amLODIPine BESYLATE 5 MG TABLET 10 MG PO (08:35)
[2022-10-03] MEDS: POTASSIUM CHLORIDE 20 MEQ ER TABLET 40 MEQ PO (11:52)
[2022-10-03 14:16] VITALS: BP 121/69; PULSE 92; RESP 16; TEMP 36.5; O2SAT 96
--- NOTE | 2022-10-03 14:26 | PM.PNGS ---
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 Pain controlled. Ambulating in halls. Tolerating full liquids. Exam GI: Inspection: non-distended and incision (Intact with satrid) GI Palp: Yes Tenderness to palpation present (GI) (Incisional), No Guarding due to palpation present (GI) and No Rebound tenderness present Auscultation: normal bowel sounds Objective Data Vital Signs Vital Signs: Vital Signs - 24 hr 10/02/22 20:25 10/02/22 22:00 10/03/22 06:00 Temperature 37.0 C 35.9 C L Pulse Rate 90 82 Respiratory Rate 16 16 Blood Pressure 122/66 132/65 Pulse Oximetry 94 94 93 Oxygen Delivery Room Air Fraction of Inspired Oxygen 10/03/22 08:00 Temperature Pulse Rate Respiratory Rate Blood Pressure Pulse Oximetry Oxygen Delivery Room Air Fraction of Inspired Oxygen Intake/Output Intake/Output: Intake & Output 09/30/22 10/01/22 10/02/22 10/03/22 23:59 23:59 23:59 23:59 Intake Total 2500 3890 1620 1800 Output Total 600 4850 1150 Balance 1900 -215 859 4907 Meds/Results Medications: Active Medications Generic Name Dose Route Start Last Admin Trade Name Freq PRN Reason Stop Dose Admin Acetaminophen 1,000 mg 09/30/22 20:54 Acetaminophen 500 Mg Tablet PO Q6H PRN Mild Pain (1-3) or Fever Alvimopan 12 mg 10/01/22 09:00 10/03/22 08:34 Alvimopan 12 Mg Capsule PO 12 mg Q12HR [facility] Administration Amlodipine Besylate 10 mg 10/01/22 09:00 10/03/22 08:35 Amlodipine Besylate 5 Mg Tablet PO 10 mg DAILY [facility] Administration Aspirin 81 mg 10/01/22 08:00 10/03/22 08:34 Aspirin 81 Mg Chewable Tablet PO 81 mg DAILY@0800 [facility] Administration Atorvastatin Calcium 10 mg 10/01/22 09:00 10/03/22 08:34 Atorvastatin 10 Mg Tablet PO 10 mg DAILY [facility] Administration Calcium Carbonate 500 mg 10/01/22 09:00 10/03/22 08:34 Calcium/Vitamin D 500 Mg Tablet PO 500 mg DAILY [facility] Administration Diazepam 5 mg 10/01/22 09:00 10/03/22 08:34 Diazepam (*Crx) 5 Mg Tablet PO 5 mg BID [facility] Administration Enoxaparin Sodium 40 mg 09/30/22 21:00 10/03/22 08:34 Enoxaparin 40 Mg/0.4 Ml Syringe SUB-Q 40 mg DAILY [facility] Administration Hydromorphone HCl 1 mg 09/30/22 20:54 10/02/22 03:56 Hydromorphone Hcl Inj (*Crx) 1 Mg/Ml Syr IV PUSH 1 mg Q3H PRN Administration Pain Rated 7-10 Ibuprofen 800 mg in 200 mls @ 400 mls/hr 09/30/22 22:00 10/03/22 14:07 Caldolor 800 Mg/200 Ml IVPB 400 mls/hr Q8H [facility] Administration Lisinopril 40 mg 10/01/22 09:00 10/03/22 08:34 Lisinopril 20 Mg Tablet PO 40 mg DAILY [facility] Administration Ondansetron HCl 4 mg 09/30/22 04:09 09/30/22 14:53 Ondansetron Inj 4 Mg/2 Ml Vial IV PUSH 4 mg Q4H PRN Administration Nausea Oxycodone HCl 5 mg 09/30/22 20:54 10/03/22 14:06 Oxycodone Hcl (*Crx) 5 Mg Tab Ir PO 5 mg Q4H PRN Administration Pain Rated 7-10 Pantoprazole Sodium 40 mg 10/01/22 09:00 10/03/22 08:34 Pantoprazole 40 Mg Tablet PO 40 mg QAM [facility] Administration Polyethylene Glycol 17 gm 10/03/22 14:30 Polyethylene Glycol 3350 17 Gm Powd.Pack PO QAM [facility] Vitamin D 1,000 units 10/01/22 09:00 10/03/22 08:34 Cholecalciferol 1,000 Units Tablet PO 1,000 units DAILY [facility] Administration Radiology Results: ITS Impressions Chest/Abdomen/Pelvis CTA 09/30/22 05:47 Impression: Cecal volvulus, as detailed above. Cecum is distended to approximately 9 cm in diameter. No pneumatosis or free air. 4.3 cm infrarenal abdominal aortic aneurysm, minimally increased from prior exam. Probable diffuse fatty infi
--- NOTE | 2022-10-03 15:47 | WPDPN ---
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 D/c IVF 10/03/2022 interval history: patient with volvulus s/p right hemicolectomy 09/30, had BM and abdomen pain is improving, seen by her surgeon and advanced diet to regular, Hgb is stable, will monitor, will have PT/OT evaluate the patient, (2) Aneurysm of infrarenal abdominal aorta: Code(s): I71.4 - Abdominal aortic aneurysm, without rupture Status: Acute Assessment and Plan: Chronic history follows vascular surgeon CT shows - 4.3 cm infrarenal abdominal aortic aneurysm, minimally increased from prior exam Plan DVT prophylaxis with Lovenox GI prophylaxis not indicated Code status full code Subjective Date/time seen: 10/03/22 15:47 Interval history: No overnight events noted. No chest pain or shortness of breath. No nausea, vomiting or diarrhea. No fevers or chills. Still with some abdominal discomfort and distention. No flatus or bowel movement yet. 10/03/2022 interval history: patient with volvulus s/p right hemicolectomy 09/30, had BM and abdomen pain is improving, seen by her surgeon and advanced diet to regular, Hgb is stable, will monitor, will have PT/OT evaluate the patient, Review of Systems Review of Systems: 12 point review of systems was assessed and was negative except as noted in the HPI Exam Narrative: Patient is comfortable, NAD HEENT: eyes are clear and none icteric LUNGS: Normal respiratory effort ABD: Not distended Lower extremities: no edema SKIN: nonjaundiced Neuro: grossly intact. Objective Data Vital Signs Vital Signs: Vital Signs - 24 hr 10/02/22 20:25 10/02/22 22:00 10/03/22 06:00 Temperature 98.6 F 96.7 F L Pulse Rate 90 82 Respiratory Rate 16 16 Blood Pressure 122/66 132/65 Pulse Oximetry 94 94 93 Oxygen Delivery Room Air Fraction of Inspired Oxygen 21 10/03/22 08:00 10/03/22 14:16 Temperature 97.7 F Pulse Rate 92 Respiratory Rate 16 Blood Pressure 121/69 Pulse Oximetry 96 Oxygen Delivery Room Air Fraction of Inspired Oxygen Intake/Output Intake/Output: Intake & Output 09/30/22 10/01/22 10/02/22 10/03/22 23:59 23:59 23:59 23:59 Intake Total 2500 3890 1620 1800 Output Total 600 4850 1150 Balance 1900 -296 641 2943 Meds/Results Medications: Active Medications Generic Name Dose Route Start Last Admin Trade Name Freq PRN Reason Stop Dose Admin Acetaminophen 1,000 mg 09/30/22 20:54 Acetaminophen 500 Mg Tablet PO Q6H PRN Mild Pain (1-3) or Fever Alvimopan 12 mg 10/01/22 09:00 10/03/22 08:34 Alvimopan 12 Mg Capsule PO 12 mg Q12HR [facility] Administration Amlodipine Besylate 10 mg 10/01/22 09:00 10/03/22 08:35 Amlodipine Besylate 5 Mg Tablet PO 10 mg DAILY [facility] Administration Aspirin 81 mg 10/01/22 08:00 10/03/22 08:34 Aspirin 81 Mg Chewable Tablet PO 81 mg DAILY@0800 [facility] Administration Atorvastatin Calcium 10 mg 10/01/22 09:00 10/03/22 08:34 Atorvastatin 10 Mg Tablet PO 10 mg DAILY [facility] Administration Calcium Carbonate 500 mg 10/01/22 09:00 10/03/22 08:34 Calcium/Vitamin D 500 Mg Tablet PO 500 mg DAILY [facility] Administration Diazepam 5 mg 10/01/22 09:00 10/03/22 08:34 Diazepam (*Crx) 5 Mg Tablet PO 5 mg BID [facility] Administration Enoxaparin Sodium 40 mg 09/30/22 21:00 10/03/22 08:34 Enoxaparin 40 Mg/0.4 Ml Syringe SUB-Q 40 mg DAILY [facility] Administration Hydromorphone HCl 1 mg 09/30/22 20:54 10/02/22 03:56 Hydromorphone Hcl Inj (*Crx) 1 Mg/Ml Syr IV PUSH 1 mg Q3H PRN Administration Pain Rated 7-10 Ibuprofen 800 mg in 200 mls @ 400 mls/hr 09/30/22 22:00 10/03/22 14:07 Caldolor 800 Mg/200
[2022-10-03] MEDS: polyethylene glycoL 3350 17 GM POWD.PACK PO (17:19)
[2022-10-03 19:34] VITALS: BP 137/67; PULSE 96; RESP 18; TEMP 37.1; O2SAT 97
[2022-10-04 05:03] VITALS: BP 127/65; PULSE 84; RESP 18; TEMP 36.7; O2SAT 96
[2022-10-04] MEDS: oxyCODONE HCL (*CRX) 5 MG TAB IR PO ×2 (05:19→20:36)
[2022-10-04] MEDS: IBUPROFEN IV 800 MG/200 ML 800 MG/200 ML BAG 400 MG IVPB ×3 (05:20→20:37)
[2022-10-04 06:02] LABS: Hematocrit 28.2 % (37.0-47.0); Hemoglobin 9.3 g/dL (12.0-15.0); Mean Corpuscular Hemoglobin 32.6 pg (26-34); Mean Corpuscular Volume 98.9 fl (80-100); Mean Platelet Volume 10.4 fl (7.4-10.4); Platelet Count Result 204 k/mm3 (150-375); Red Blood Count 2.85 M/mm3 (4.2-5.4); Red Cell Distribution Width 13.2 % (11.5-14.5); White Blood Count 8.9 K/mm3 (4.5-10.0)
[2022-10-04 06:25] LABS: Anion Gap 5 mmol/L (8-16); Blood Urea Nitrogen 13 mg/dL (7-17); Calcium 8.6 mg/dL (8.4-10.2); Carbon Dioxide 29 mmol/L (22-30); Chloride 102 mmol/L (98-107); Estimated CRCL calculation 46 ml/min; Estimated Glomerular Filt Rate > 60; Glucose 98 mg/dL (65-110); Magnesium 1.9 mg/dL (1.6-2.3); Potassium 3.7 mmol/L (3.4-5.0); Sodium 136 mmol/L (137-145)
[2022-10-04] MEDS: amLODIPine BESYLATE 5 MG TABLET 10 MG PO (09:46)
[2022-10-04] MEDS: ATORVASTATIN 10 MG TABLET PO (09:46)
[2022-10-04] MEDS: ALVIMOPAN 12 MG CAPSULE PO (09:46)
[2022-10-04] MEDS: lisinopriL 20 MG TABLET 40 MG PO (09:46)
[2022-10-04] MEDS: ASPIRIN 81 MG CHEWABLE TABLET PO (09:46)
[2022-10-04] MEDS: CHOLECALCIFEROL 1,000 UNITS TABLET 1000 UNITS PO (09:46)
[2022-10-04] MEDS: PANTOPRAZOLE 40 MG TABLET PO (09:46)
[2022-10-04] MEDS: polyethylene glycoL 3350 17 GM POWD.PACK PO (09:47)
[2022-10-04] MEDS: ENOXAPARIN 40 MG/0.4 ML SYRINGE SUB-Q (09:47)
[2022-10-04] MEDS: diazePAM (*CRX) 5 MG TABLET PO ×2 (10:00→16:54)
--- NOTE | 2022-10-04 13:28 | PM.PNGS ---
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 Function seems to be slowly returning. She is requesting a suppository and some stool softeners which I think is reasonable. Her potassium is still a little low at 3.7 will go ahead and give her another 40 mEq of potassium today. Assuming she continues to have bowel function as tolerated diet tomorrow then I think she can be discharged home tomorrow. Subjective Subjective Date/Time Seen: 10/04/22 13:28 Post Op day: 4 (Status post open right hemicolectomy for cecal volvulus) Interval history: Patient is doing well today. Tolerating a regular heart healthy diet. Passing flatus and had of small bowel movement today. Still feels a little bloated. Pain is well controlled with oral pain medications. White blood cell count is normal no fever. Exam GI: Other: Abdomen is soft and minimally distended. Midline incision is healing well without any redness or drainage. There is some resolving ecchymosis but no hematoma. Objective Data Vital Signs Vital Signs: Vital Signs - 24 hr 10/03/22 14:16 10/03/22 19:34 10/04/22 05:03 Temperature 36.5 C 37.1 C 36.7 C Pulse Rate 92 96 84 Respiratory Rate 16 18 18 Blood Pressure 121/69 137/67 127/65 Pulse Oximetry 96 97 96 Intake/Output Intake/Output: Intake & Output 10/01/22 10/02/22 10/03/22 10/04/22 23:59 23:59 23:59 23:59 Intake Total 3890 1620 2570 890 Output Total 4850 1150 1000 300 Balance -442 731 6356 590 Meds/Results Medications: Active Medications Generic Name Dose Route Start Last Admin Trade Name Freq PRN Reason Stop Dose Admin Acetaminophen 1,000 mg 09/30/22 20:54 Acetaminophen 500 Mg Tablet PO Q6H PRN Mild Pain (1-3) or Fever Amlodipine Besylate 10 mg 10/01/22 09:00 10/04/22 09:46 Amlodipine Besylate 5 Mg Tablet PO 10 mg DAILY [facility] Administration Aspirin 81 mg 10/01/22 08:00 10/04/22 09:46 Aspirin 81 Mg Chewable Tablet PO 81 mg DAILY@0800 [facility] Administration Atorvastatin Calcium 10 mg 10/01/22 09:00 10/04/22 09:46 Atorvastatin 10 Mg Tablet PO 10 mg DAILY [facility] Administration Bisacodyl 10 mg 10/04/22 13:25 Bisacodyl 10 Mg Suppository RECTAL 10/04/22 13:26 ONCE ONE Calcium Carbonate 500 mg 10/01/22 09:00 10/04/22 09:46 Calcium/Vitamin D 500 Mg Tablet PO 500 mg DAILY [facility] Administration Diazepam 5 mg 10/01/22 09:00 10/04/22 10:00 Diazepam (*Crx) 5 Mg Tablet PO 5 mg BID [facility] Administration Enoxaparin Sodium 40 mg 09/30/22 21:00 10/04/22 09:47 Enoxaparin 40 Mg/0.4 Ml Syringe SUB-Q 40 mg DAILY [facility] Administration Hydromorphone HCl 1 mg 09/30/22 20:54 10/02/22 03:56 Hydromorphone Hcl Inj (*Crx) 1 Mg/Ml Syr IV PUSH 1 mg Q3H PRN Administration Pain Rated 7-10 Ibuprofen 800 mg in 200 mls @ 400 mls/hr 09/30/22 22:00 10/04/22 05:20 Caldolor 800 Mg/200 Ml IVPB 400 mls/hr Q8H [facility] Administration Lisinopril 40 mg 10/01/22 09:00 10/04/22 09:46 Lisinopril 20 Mg Tablet PO 40 mg DAILY [facility] Administration Ondansetron HCl 4 mg 09/30/22 04:09 09/30/22 14:53 Ondansetron Inj 4 Mg/2 Ml Vial IV PUSH 4 mg Q4H PRN Administration Nausea Oxycodone HCl 5 mg 09/30/22 20:54 10/04/22 05:19 Oxycodone Hcl (*Crx) 5 Mg Tab Ir PO 5 mg Q4H PRN Administration Pain Rated 7-10 Pantoprazole Sodium 40 mg 10/01/22 09:00 10/04/22 09:46 Pantoprazole 40 Mg Tablet PO 40 mg QAM [facility] Administration Polyethylene Glycol 17 gm 10/03/22 14:30 10/04/22 09:47 Polyethylene Glycol 3350 17 Gm Powd.Pack PO 17 gm QAM [facility] Administration Potassium Chloride 40 meq 10/04/22 13:25 Potassium Chloride 20 Meq Packet (For Liquid) PO 10/04/22 13:26 ONCE ONE Senna/Docusate Sodium 1 tab
[2022-10-04] MEDS: POTASSIUM CHLORIDE 20 MEQ PACKET (FOR LIQUID) 40 MEQ PO (14:11)
[2022-10-04] MEDS: BISACODYL 10 MG SUPPOSITORY RECTAL (14:11)
[2022-10-04 15:27] VITALS: BP 131/71; PULSE 82; RESP 18; TEMP 36.8; O2SAT 96
--- NOTE | 2022-10-04 17:12 | WPDPN ---
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 D/c IVF 10/04/2022 interval history: patient with volvulus s/p right hemicolectomy 09/30, patient bowl function is slowly returning and abdomen pain is improving, seen by her surgeon and advanced diet to regular, one bottle of blood culture is growing Gram-positive cocci in cluster, will start on levaquin and flagyl, will follow up idedntification and sensitivity, Hgb is stable, will monitor, will have PT/OT evaluate the patient, (2) Aneurysm of infrarenal abdominal aorta: Code(s): I71.4 - Abdominal aortic aneurysm, without rupture Status: Acute Assessment and Plan: Chronic history follows vascular surgeon CT shows - 4.3 cm infrarenal abdominal aortic aneurysm, minimally increased from prior exam Plan DVT prophylaxis with Lovenox GI prophylaxis not indicated Code status full code Subjective Date/time seen: 10/04/22 17:12 Interval history: No overnight events noted. No chest pain or shortness of breath. No nausea, vomiting or diarrhea. No fevers or chills. Still with some abdominal discomfort and distention. No flatus or bowel movement yet. 10/04/2022 interval history: patient with volvulus s/p right hemicolectomy 09/30, patient bowl function is slowly returning and abdomen pain is improving, seen by her surgeon and advanced diet to regular, one bottle of blood culture is growing Gram-positive cocci in cluster, will start on levaquin and flagyl, will follow up idedntification and sensitivity, Hgb is stable, will monitor, will have PT/OT evaluate the patient, Review of Systems Review of Systems: 12 point review of systems was assessed and was negative except as noted in the HPI Exam Narrative: Patient is comfortable, NAD HEENT: eyes are clear and none icteric LUNGS: Normal respiratory effort ABD: Not distended Lower extremities: no edema SKIN: nonjaundiced Neuro: grossly intact. Objective Data Vital Signs Vital Signs: Vital Signs - 24 hr 10/03/22 19:34 10/04/22 05:03 10/04/22 15:27 Temperature 98.7 F 98.0 F 98.2 F Pulse Rate 96 84 82 Respiratory Rate 18 18 18 Blood Pressure 137/67 127/65 131/71 Pulse Oximetry 97 96 96 Intake/Output Intake/Output: Intake & Output 10/01/22 10/02/22 10/03/22 10/04/22 23:59 23:59 23:59 23:59 Intake Total 3890 1620 2570 1690 Output Total 4850 1150 1000 1600 Balance -730 922 9647 90 Meds/Results Medications: Active Medications Generic Name Dose Route Start Last Admin Trade Name Freq PRN Reason Stop Dose Admin Acetaminophen 1,000 mg 09/30/22 20:54 Acetaminophen 500 Mg Tablet PO Q6H PRN Mild Pain (1-3) or Fever Amlodipine Besylate 10 mg 10/01/22 09:00 10/04/22 09:46 Amlodipine Besylate 5 Mg Tablet PO 10 mg DAILY [facility] Administration Aspirin 81 mg 10/01/22 08:00 10/04/22 09:46 Aspirin 81 Mg Chewable Tablet PO 81 mg DAILY@0800 [facility] Administration Atorvastatin Calcium 10 mg 10/01/22 09:00 10/04/22 09:46 Atorvastatin 10 Mg Tablet PO 10 mg DAILY [facility] Administration Calcium Carbonate 500 mg 10/01/22 09:00 10/04/22 09:46 Calcium/Vitamin D 500 Mg Tablet PO 500 mg DAILY [facility] Administration Diazepam 5 mg 10/01/22 09:00 10/04/22 16:54 Diazepam (*Crx) 5 Mg Tablet PO 5 mg BID [facility] Administration Enoxaparin Sodium 40 mg 09/30/22 21:00 10/04/22 09:47 Enoxaparin 40 Mg/0.4 Ml Syringe SUB-Q 40 mg DAILY [facility] Administration Hydromorphone HCl 1 mg 09/30/22 20:54 10/02/22 03:56 Hydromorphone Hcl Inj (*Crx) 1 Mg/Ml Syr IV PUSH 1 mg Q3H PRN Administration Pain Rated 7-10 Ibuprofen 800 mg in 200 mls @ 400 mls/hr 09/30/22 22:00 10/04/22 14:41
[2022-10-04] MEDS: SENNA/DOCUSATE SODIUM TABLET 1 TAB PO (20:37)
[2022-10-04 20:52] VITALS: BP 120/78; PULSE 94; RESP 20; TEMP 36.8; O2SAT 98
[2022-10-05] MEDS: metroNIDAZOLE 500 MG/ISO 100ML 500 MG/100 ML BAG 100 MG IVPB ×4 (00:50→23:40)
[2022-10-05 05:48] LABS: Hemoglobin 9.9 g/dL (12.0-15.0); Mean Corpuscular HGB Conc 31.9 g/dl (32-36); Mean Corpuscular Hemoglobin 31.9 pg (26-34); Mean Platelet Volume 10.2 fl (7.4-10.4); Platelet Count Result 259 k/mm3 (150-375); Red Cell Distribution Width 13.1 % (11.5-14.5); White Blood Count 9.3 K/mm3 (4.5-10.0)
[2022-10-05] MEDS: IBUPROFEN IV 800 MG/200 ML 800 MG/200 ML BAG 400 MG IVPB ×3 (05:52→20:54)
[2022-10-05 05:55] LABS: Anion Gap 4 mmol/L (8-16); Blood Urea Nitrogen 15 mg/dL (7-17); Calcium 9.2 mg/dL (8.4-10.2); Carbon Dioxide 31 mmol/L (22-30); Chloride 103 mmol/L (98-107); Estimated CRCL calculation 42 ml/min; Estimated Glomerular Filt Rate 54; Glucose 92 mg/dL (65-110); Potassium 4.2 mmol/L (3.4-5.0); Sodium 138 mmol/L (137-145)
[2022-10-05] MEDS: CHOLECALCIFEROL 1,000 UNITS TABLET 1000 UNITS PO (08:51)
[2022-10-05] MEDS: ATORVASTATIN 10 MG TABLET PO (08:51)
[2022-10-05] MEDS: amLODIPine BESYLATE 5 MG TABLET 10 MG PO (08:51)
[2022-10-05] MEDS: diazePAM (*CRX) 5 MG TABLET PO ×2 (08:52→17:00)
[2022-10-05] MEDS: polyethylene glycoL 3350 17 GM POWD.PACK PO (08:52)
[2022-10-05] MEDS: PANTOPRAZOLE 40 MG TABLET PO (08:52)
[2022-10-05] MEDS: lisinopriL 20 MG TABLET 40 MG PO (08:52)
[2022-10-05] MEDS: ENOXAPARIN 40 MG/0.4 ML SYRINGE SUB-Q (08:52)
[2022-10-05] MEDS: ASPIRIN 81 MG CHEWABLE TABLET PO (08:52)
--- NOTE | 2022-10-05 12:05 | PM.PNGS ---
Progress Note: A&P Assessment and Plan (1) Cecal volvulus: Code(s): K56.2 - Volvulus Status: Acute Assessment and Plan: Tolerating diet. Surgically stable for discharge. Follow-up with Dr. Mendoza in 1-2 weeks. Patient states that discharge is being held up due to positive blood culture. It seems this may be a contaminant as only 1/2 bottles was positive. Discharge per hospitalist recommendations. Subjective Subjective Date/Time Seen: 10/05/22 12:05 Interval history: Tolerating diet, bowels moving, minimal pain any more. Exam GI: Other: Abdomen is soft and non-distended. Midline incision is healing well without any redness or drainage. There is some resolving ecchymosis but no hematoma. Objective Data Vital Signs Vital Signs: Vital Signs - 24 hr 10/04/22 15:27 10/04/22 20:52 Temperature 36.8 C 36.8 C Pulse Rate 82 94 Respiratory Rate 18 20 Blood Pressure 131/71 120/78 Pulse Oximetry 96 98 Intake/Output Intake/Output: Intake & Output 10/02/22 10/03/22 10/04/22 10/05/22 23:59 23:59 23:59 23:59 Intake Total 1620 2570 2130 400 Output Total 1150 1000 1800 300 Balance 470 1570 330 100 Meds/Results Medications: Active Medications Generic Name Dose Route Start Last Admin Trade Name Freq PRN Reason Stop Dose Admin Acetaminophen 1,000 mg 09/30/22 20:54 Acetaminophen 500 Mg Tablet PO Q6H PRN Mild Pain (1-3) or Fever Amlodipine Besylate 10 mg 10/01/22 09:00 10/05/22 08:51 Amlodipine Besylate 5 Mg Tablet PO 10 mg DAILY LOIS Administration Aspirin 81 mg 10/01/22 08:00 10/05/22 08:52 Aspirin 81 Mg Chewable Tablet PO 81 mg DAILY@0800 LOIS Administration Atorvastatin Calcium 10 mg 10/01/22 09:00 10/05/22 08:51 Atorvastatin 10 Mg Tablet PO 10 mg DAILY LOIS Administration Calcium Carbonate 500 mg 10/01/22 09:00 10/05/22 08:51 Calcium/Vitamin D 500 Mg Tablet PO 500 mg DAILY LOIS Administration Diazepam 5 mg 10/01/22 09:00 10/05/22 08:52 Diazepam (*Crx) 5 Mg Tablet PO 5 mg BID LOIS Administration Enoxaparin Sodium 40 mg 09/30/22 21:00 10/05/22 08:52 Enoxaparin 40 Mg/0.4 Ml Syringe SUB-Q 40 mg DAILY LOIS Administration Hydromorphone HCl 1 mg 09/30/22 20:54 10/02/22 03:56 Hydromorphone Hcl Inj (*Crx) 1 Mg/Ml Syr IV PUSH 1 mg Q3H PRN Administration Pain Rated 7-10 Ibuprofen 800 mg in 200 mls @ 400 mls/hr 09/30/22 22:00 10/05/22 05:52 Caldolor 800 Mg/200 Ml IVPB 400 mls/hr Q8H LOIS Administration Metronidazole 500 mg in 100 mls @ 100 mls/hr 10/05/22 08:00 10/05/22 09:51 Flagyl 500 Mg/Iso Soln 100 Ml IVPB Infused Q8H LOIS Infusion Ceftriaxone Sodium 1 gm in 50 mls @ 100 mls/hr 10/05/22 21:00 Rocephin 1 Gm/Ns 50 Ml IVPB Q24H LOIS Lisinopril 40 mg 10/01/22 09:00 10/05/22 08:52 Lisinopril 20 Mg Tablet PO 40 mg DAILY LOIS Administration Ondansetron HCl 4 mg 09/30/22 04:09 09/30/22 14:53 Ondansetron Inj 4 Mg/2 Ml Vial IV PUSH 4 mg Q4H PRN Administration Nausea Oxycodone HCl 5 mg 09/30/22 20:54 10/04/22 20:36 Oxycodone Hcl (*Crx) 5 Mg Tab Ir PO 5 mg Q4H PRN Administration Pain Rated 7-10 Pantoprazole Sodium 40 mg 10/01/22 09:00 10/05/22 08:52 Pantoprazole 40 Mg Tablet PO 40 mg QAM LOIS Administration Polyethylene Glycol 17 gm 10/03/22 14:30 10/05/22 08:52 Polyethylene Glycol 3350 17 Gm Powd.Pack PO 17 gm QAM LOIS Administration Senna/Docusate Sodium 1 tab 10/04/22 21:00 10/04/22 20:37 Senna/Docusate Sodium Tablet PO 1 tab HS LOIS Administration Vitamin D 1,000 units 10/01/22 09:00 10/05/22 08:51 Cholecalciferol 1,000 Units Tablet PO 1,000 units DAILY LOIS Administration Radiology Results: ITS Impressions Chest/Abdomen/Pelvis CTA 09/30/22 05:47 Impression: Cecal volvulus, as detailed above. Cecum is distended to approximately 9 cm in diameter. No pneumatosis or fr
[2022-10-05 14:00] VITALS: BP 129/68; PULSE 86; RESP 16; TEMP 36.9; O2SAT 97
--- NOTE | 2022-10-05 14:13 | WPDPN ---
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 D/c IVF 10/05/2022 interval history: patient with volvulus s/p right hemicolectomy 09/30, patient bowl function is slowly returning and abdomen pain is improving, seen by her surgeon and advanced diet to regular, one bottle of blood culture is growing Gram-positive cocci in cluster, will start on levaquin and flagyl, will follow up identification and sensitivity, Hgb is stable, will monitor, will have PT/OT evaluate the patient, (2) Aneurysm of infrarenal abdominal aorta: Code(s): I71.4 - Abdominal aortic aneurysm, without rupture Status: Acute Assessment and Plan: Chronic history follows vascular surgeon CT shows - 4.3 cm infrarenal abdominal aortic aneurysm, minimally increased from prior exam Plan DVT prophylaxis with Lovenox GI prophylaxis not indicated Code status full code Subjective Date/time seen: 10/05/22 14:13 Interval history: No overnight events noted. No chest pain or shortness of breath. No nausea, vomiting or diarrhea. No fevers or chills. Still with some abdominal discomfort and distention. No flatus or bowel movement yet. 10/05/2022 interval history: patient with volvulus s/p right hemicolectomy 09/30, patient bowl function is slowly returning and abdomen pain is improving, seen by her surgeon and advanced diet to regular, one bottle of blood culture is growing Gram-positive cocci in cluster, will start on levaquin and flagyl, will follow up identification and sensitivity, Hgb is stable, will monitor, will have PT/OT evaluate the patient, Review of Systems Review of Systems: 12 point review of systems was assessed and was negative except as noted in the HPI Exam Narrative: Patient is comfortable, NAD HEENT: eyes are clear and none icteric LUNGS: Normal respiratory effort ABD: Not distended Lower extremities: no edema SKIN: nonjaundiced Neuro: grossly intact. Objective Data Vital Signs Vital Signs: Vital Signs - 24 hr 10/04/22 15:27 10/04/22 20:52 Temperature 98.2 F 98.2 F Pulse Rate 82 94 Respiratory Rate 18 20 Blood Pressure 131/71 120/78 Pulse Oximetry 96 98 Intake/Output Intake/Output: Intake & Output 10/02/22 10/03/22 10/04/22 10/05/22 23:59 23:59 23:59 23:59 Intake Total 1620 2570 2130 600 Output Total 1150 1000 1800 300 Balance 470 1570 330 300 Meds/Results Medications: Active Medications Generic Name Dose Route Start Last Admin Trade Name Freq PRN Reason Stop Dose Admin Acetaminophen 1,000 mg 09/30/22 20:54 Acetaminophen 500 Mg Tablet PO Q6H PRN Mild Pain (1-3) or Fever Amlodipine Besylate 10 mg 10/01/22 09:00 10/05/22 08:51 Amlodipine Besylate 5 Mg Tablet PO 10 mg DAILY LOIS Administration Aspirin 81 mg 10/01/22 08:00 10/05/22 08:52 Aspirin 81 Mg Chewable Tablet PO 81 mg DAILY@0800 LOIS Administration Atorvastatin Calcium 10 mg 10/01/22 09:00 10/05/22 08:51 Atorvastatin 10 Mg Tablet PO 10 mg DAILY LOIS Administration Calcium Carbonate 500 mg 10/01/22 09:00 10/05/22 08:51 Calcium/Vitamin D 500 Mg Tablet PO 500 mg DAILY LOIS Administration Diazepam 5 mg 10/01/22 09:00 10/05/22 08:52 Diazepam (*Crx) 5 Mg Tablet PO 5 mg BID LOIS Administration Enoxaparin Sodium 40 mg 09/30/22 21:00 10/05/22 08:52 Enoxaparin 40 Mg/0.4 Ml Syringe SUB-Q 40 mg DAILY LOIS Administration Hydromorphone HCl 1 mg 09/30/22 20:54 10/02/22 03:56 Hydromorphone Hcl Inj (*Crx) 1 Mg/Ml Syr IV PUSH 1 mg Q3H PRN Administration Pain Rated 7-10 Ibuprofen 800 mg in 200 mls @ 400 mls/hr 09/30/22 22:00 10/05/22 13:18 Caldolor 800 Mg/200 Ml IVPB 400 mls/h
[2022-10-05] MEDS: oxyCODONE HCL (*CRX) 5 MG TAB IR PO ×2 (16:14→20:53)
[2022-10-05 20:48] VITALS: BP 126/78; PULSE 64; RESP 20; TEMP 36.4; O2SAT 95
[2022-10-05] MEDS: SENNA/DOCUSATE SODIUM TABLET 1 TAB PO (20:53)
[2022-10-06] MEDS: oxyCODONE HCL (*CRX) 5 MG TAB IR PO ×2 (01:21→05:39)
[2022-10-06 05:32] LABS: Hematocrit 28.2 % (37.0-47.0); Hemoglobin 9.3 g/dL (12.0-15.0); Mean Corpuscular Hemoglobin 32.9 pg (26-34); Mean Corpuscular Volume 99.6 fl (80-100); Platelet Count Result 244 k/mm3 (150-375); Red Blood Count 2.83 M/mm3 (4.2-5.4); Red Cell Distribution Width 13.2 % (11.5-14.5); White Blood Count 8.5 K/mm3 (4.5-10.0)
[2022-10-06 05:37] VITALS: BP 139/69; PULSE 90; RESP 18; TEMP 36.7; O2SAT 97
[2022-10-06] MEDS: IBUPROFEN IV 800 MG/200 ML 800 MG/200 ML BAG 400 MG IVPB (05:39)
[2022-10-06 05:40] LABS: Anion Gap 4 mmol/L (8-16); Blood Urea Nitrogen 15 mg/dL (7-17); Calcium 8.7 mg/dL (8.4-10.2); Carbon Dioxide 30 mmol/L (22-30); Chloride 103 mmol/L (98-107); Estimated CRCL calculation 46 ml/min; Estimated Glomerular Filt Rate > 60; Glucose 92 mg/dL (65-110); Magnesium 1.8 mg/dL (1.6-2.3); Potassium 3.7 mmol/L (3.4-5.0); Sodium 137 mmol/L (137-145)
[2022-10-06] MEDS: lisinopriL 20 MG TABLET 40 MG PO (09:19)
[2022-10-06] MEDS: amLODIPine BESYLATE 5 MG TABLET 10 MG PO (09:19)
[2022-10-06] MEDS: diazePAM (*CRX) 5 MG TABLET PO (09:19)
[2022-10-06] MEDS: ATORVASTATIN 10 MG TABLET PO (09:19)
[2022-10-06] MEDS: CHOLECALCIFEROL 1,000 UNITS TABLET 1000 UNITS PO (09:19)
[2022-10-06] MEDS: PANTOPRAZOLE 40 MG TABLET PO (09:19)
[2022-10-06] MEDS: ASPIRIN 81 MG CHEWABLE TABLET PO (09:20)
[2022-10-06] MEDS: metroNIDAZOLE 500 MG/ISO 100ML 500 MG/100 ML BAG 100 MG IVPB (09:20)
[2022-10-06] MEDS: ENOXAPARIN 40 MG/0.4 ML SYRINGE SUB-Q (09:20)
--- NOTE | 2022-10-06 09:58 | PCPTNOTE ---
Patient refused treatment this session due to anticipated discharge.
--- NOTE | 2022-10-06 12:01 | PM.DS ---
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 D/c IVF 10/05/2022 interval history: patient with volvulus s/p right hemicolectomy 09/30, patient bowl function is slowly returning and abdomen pain is improving, seen by her surgeon and advanced diet to regular, one bottle of blood culture is growing Gram-positive cocci in cluster, will start on levaquin and flagyl, will follow up identification and sensitivity, Hgb is stable, will monitor, will have PT/OT evaluate the patient, (2) Aneurysm of infrarenal abdominal aorta: Code(s): I71.4 - Abdominal aortic aneurysm, without rupture Status: Acute Assessment and Plan: Chronic history follows vascular surgeon CT shows - 4.3 cm infrarenal abdominal aortic aneurysm, minimally increased from prior exam Plan DVT prophylaxis with Lovenox GI prophylaxis not indicated Code status full code DS: Summary Hospital Course Reason for hospitalization: Abdominal pain Narrative: 76 year old patient with significant PMH of Breast CA with bilateral mastectomy in 2016 and radiation treatment thereafter, none recent, HTN, HLD, Diverticulitis, GERD, OA, Osteoporosis, shingles and COPD without current medication treatment. Pt had ct abdomen showing?Cecal volvulus, as detailed above. Cecum is distended to approximately 9 cm in diameter. No pneumatosis or free air. 4.3 cm infrarenal abdominal aortic aneurysm, minimally increased from prior exam. Probable diffuse fatty infiltration of liver. Pt kept NPO with NG tube and IV fluids Pt seen by surgery MD admitted for small bowel and colonic obstruction secondary to cecal volvulus. And urgent laparotomy and right hemicolectomy is recommended Hospital Course: patient with volvulus s/p? right hemicolectomy 09/30, patient bowl function is slowly returning and abdomen pain is improving, seen by her surgeon and advanced diet to regular, one bottle of blood culture is growing Gram-positive cocci in cluster, will start on levaquin and flagyl, will follow up identification and sensitivity, Hgb is stable, will monitor, will have PT/OT evaluate the patient, Patient clinical symptoms are improved able to tolerate her diet seen by surgery service will discharge the patient today Time Spent with Patient Time attestation: Total time spent providing and/or coordinating discharge services: Exam Narrative: Patient is comfortable, NAD HEENT: eyes are clear and none icteric LUNGS: Normal respiratory effort ABD: Not distended Lower extremities: no edema SKIN: nonjaundiced Neuro: grossly intact. DS: Data Data Completed and Pending Completed studies during hospitalization: Pending at discharge 09/30/22 18:35 Surgical [PTH] Routine Labs on day of discharge: Labs from last 24 hours 10/06/22 05:18 WBC 8.5 RBC 2.83 L Hgb 9.3 L Hct 28.2 L MCV 99.6 MCH 32.9 MCHC 33.0 RDW 13.2 Plt Count 244 MPV 10.0 Sodium 137 Potassium 3.7 Chloride 103 Carbon Dioxide 30 Anion Gap 4 L BUN 15 Creatinine 0.90 Estim Creat Clear Calc 46 Estimated GFR > 60 Glucose 92 Calcium 8.7 Magnesium 1.8 Discharge Plan Discharge Attending physician on discharge: Magdalena Lira Consulting providers: Brandon Mendoza; Carolina Rees; Kallie Dawkins; Les Lion; Michael Hines; Be Roth Discharging Clinician: Magdalena Lira Patient Disposition: Home, Self-Care Activity: may shower and no straining Diet: regular Wound Care Instructions: other - see discharge instructions Discharge Instructions: Wound care instructions Okay to showe
== END 2022-10-06 14:00 | disposition home or self-care (01) | DRG 331 ==
LOC: ANHED 09-30 04:13 → ANH3MED 09-30 04:56
PROVIDERS: Surgery; Admitting Provider Internal Medicine; Emergency Provider Emergency Medicine; PCP Internal Medicine; Visit Provider Family Medicine
PROC: 0DTF0ZZ Resection of Right Large Intestine, Open Approach (ICD-10-PCS; CPT 44160; principal; 2022-09-30 17:45)
DX: K56.2 Volvulus (principal); I71.40 Abdominal aortic aneurysm, without rupture, unspecified; Z87.891 Personal history of nicotine dependence; Z85.3 Personal history of malignant neoplasm of breast; J44.9 Chronic obstructive pulmonary disease, unspecified; K57.90 Diverticulosis of intestine, part unspecified, without perforation or abscess without bleeding; M19.90 Unspecified osteoarthritis, unspecified site; M85.80 Other specified disorders of bone density and structure, unspecified site; E78.5 Hyperlipidemia, unspecified; I10 Essential (primary) hypertension; Z96.1 Presence of intraocular lens; Z90.710 Acquired absence of both cervix and uterus; Z98.41 Cataract extraction status, right eye; Z98.42 Cataract extraction status, left eye
CPT/HCPCS: 36415; 71275; 74174; 80048; 80053; 83605; 83735; 84484; 85025; 85027; 85610; 85730; 86850; 86900; 86901; 87040; 87077; 87186; 88307; 93005; 96361; 96365; 96367; 96375; 96376; 97110; 97116; 97161; 97165; 97530; 97535; 99285; A9270; C9113; G0378; J0330; J0696; J1100; J1170; J1650; J1741; J1836; J2250; J2405; J2704; J2710; J3010; J3360; J7030; J7120; Q9967

== ENCOUNTER → 2023-04-14 15:24 | Outpatient (CLI) | payer MEDICARE, SELFPAY ==
--- NOTE | ~2023-04-14 | XR_ITS ---
XR chest 2V DATE: 04/14/2023 15:36 INDICATION: Shortness of breath TECHNIQUE: 2 views COMPARISON: 09/30/2022 CTA chest abdomen pelvis May 28, 2021 2 view chest FINDINGS: Bilateral hyperinflation. No pulmonary infiltrate or consolidation, pleural effusion or pul monary vascular congestion or pneumothorax is detected. Normal heart size. Is aortic calcification and unfolding. No hilar or mediastinal enlargement. Status post bilateral mastectomy. Osteopenia. IMPRESSION: Bilateral hyperinflation; no active cardiopulmonary disease Status post bilateral mastectomy Reviewed, dictated and finalized at location [facility]. RATORY COORDINATOR
== END ==
PROVIDERS: PCP Clinical Nurse Specialist; Visit Provider Clinical Nurse Specialist
DX: R06.02 Shortness of breath (principal); R92.8 Other abnormal and inconclusive findings on diagnostic imaging of breast; Z90.13 Acquired absence of bilateral breasts and nipples
CPT/HCPCS: 71046

== ENCOUNTER 2023-04-19 08:39 | Outpatient (CLI) | payer MEDICARE, SELFPAY ==
--- NOTE | 2023-04-19 08:41 | EST_ITS ---
Patient Info Name: Yaquelin Lee Age: 78 years : 1945 Gender: Female Ht: 68 in Wt: 170 lbs BSA: 1.94 m2 HR: 77 bpm BP: 132 / 69 mmHg Exam Date: 04/19/2023 9:22 AM Exam Location: [facility] Patient Status: Outpatient Admit Date: 04/19/2023 Staff Ordering Physician: Yvonne Mazariegos Attending Provider: Yvonne Mazariegos Exercise Technologist: Cristine Fernandez RDCS Exercise Physician: Siva Davis DO Exam Type: CA stress test treadmill Study Info A treadmill exercise stress test was performed. Summary 1. 1. Negative Holger exercise stress test for ischemic ST changes by ECG criteria. 2. 2. Reduced functional capacity, achieving 4.7 METs of workload. 3. 3. Baseline ectopic atrial rhythm then returned to sinus rhythm with exercise. 4. 4. Appropriate HR response to exercise. 5. 5. Appropriate HR recovery at 1 minute post exercise. 6. 6. No imaging with stress testing. 7. 7. Patient informed of the above results. Protocol: Holger Stress ECG Details Stage: REST Duration (min): 1 min : 15 sec Speed (mph): 0.0 Grade (%): 0 HR (bpm): 78 SBP (mmHg): 132 DBP (mmHg): 69 METS: --- Stage: REST Duration (min): 10 min : 35 sec Speed (mph): 0.0 Grade (%): 0 HR (bpm): 80 SBP (mmHg): 132 DBP (mmHg): 69 METS: --- Stage: STAGE 1 Duration (min): 1 min : 0 sec Speed (mph): 1.7 Grade (%): 10 HR (bpm): 112 SBP (mmHg): 132 DBP (mmHg): 69 METS: --- Stage: STAGE 1 Duration (min): 2 min : 0 sec Speed (mph): 1.7 Grade (%): 10 HR (bpm): 125 SBP (mmHg): 132 DBP (mmHg): 69 METS: --- Stage: STAGE 1 Duration (min): 3 min : 0 sec Speed (mph): 1.7 Grade (%): 10 HR (bpm): 131 SBP (mmHg): 127 DBP (mmHg): 50 METS: --- Stage: RECOVERY Duration (min): 0 min : 59 sec Speed (mph): 0.0 Grade (%): 0 HR (bpm): 120 SBP (mmHg): 127 DBP (mmHg): 50 METS: --- Stage: RECOVERY Duration (min): 1 min : 59 sec Speed (mph): 0.0 Grade (%): 0 HR (bpm): 94 SBP (mmHg): 127 DBP (mmHg): 50 METS: --- Stage: RECOVERY Duration (min): 2 min : 59 sec Speed (mph): 0.0 Grade (%): 0 HR (bpm): 89 SBP (mmHg): 145 DBP (mmHg): 58 METS: --- Stage: RECOVERY Duration (min): 3 min : 59 sec Speed (mph): 0.0 Grade (%): 0 HR (bpm): 88 SBP (mmHg): 145 DBP (mmHg): 58 METS: --- Stage: RECOVERY Duration (min): 4 min : 10 sec Speed (mph): 0.0 Grade (%): 0 HR (bpm): 86 SBP (mmHg): 147 DBP (mmHg): 61 METS: --- Rest HR: 80 bpm Peak HR: 132 bpm Rest Sys BP: 132 mmHg Peak Sys BP: 147 mmHg Max Pred HR: 142 bpm % Max Pred HR: 93 % Target HR: 121 bpm Max RPP: 19,404 bpm*mmHg Nava Score: -2 Termination Reason: Reached target heart rate or workload Cardiac Symptoms: Shortness of breath Max ST Seg Deviation: 1.00 mm Total Time: 3 min : 0 sec Rest Parker BP: 69 mmHg Peak Parker BP: 61 mmHg Angina Score: None Total METS: 4.7 Resting ECG Ectopic atrial rhythm. Stress ECG No ST changes. Arrhythmias W
== END 2023-04-19 08:40 | disposition home or self-care (01) ==
LOC: ANHCARD 08:40
PROVIDERS: PCP Clinical Nurse Specialist; Visit Provider Clinical Nurse Specialist
DX: R07.9 Chest pain, unspecified (principal); R06.02 Shortness of breath
CPT/HCPCS: 93017

== ENCOUNTER 2023-04-22 09:30 | Outpatient (CLI) | payer MEDICARE, SELFPAY ==
--- NOTE | ~2023-04-22 | CT_ITS ---
EXAMINATION: CT abdomen pelvis w con DATE: 04/22/2023 09:57 INDICATION: Abdominal hernia, left umbilical region to the left of surgical site. Constipation. Histo ry of partial small bowel resection. History of breast cancer; status post bilateral mastectomy in TECHNIQUE: Computed tomography (CT) of the abdomen and pelvis was performed with 100 CC Omnipaque 350 intravenous contrast. Automated exposure control and iterative reconstruction technique were employe d. Exam dose: 443.42 mGy-cm total exam DLP. COMPARISON: 09/30/2022 CTA chest abdomen pelvis FINDINGS: The lung bases are clear. Normal heart size. No pericardial or pleural effusion. Small sliding hiatal hernia. Diffuse hepatic steatosis. No hepatic space-occupying mass lesion is detected. Approximately 1.6 mm gallbladder calcification, stable since 09/30/2022, possibly a small stone or sma ll gallbladder wall calcification. No gallbladder wall thickening or pericholecystic fluid or fat str anding. No bile duct or pancreatic duct dilatation. No pancreatic mass lesion or calcification. Normal spleni c size. Normal morphology of the adrenal glands. Probable bilateral small inferior pole renal cyst. The kidneys are otherwise unremarkable. No urinary tract calculus or hydroureteronephrosis. The urinary bladder, uterus and adnexal areas are unremarka ble. Since 09/30/2022 there is abdominal aortic biiliac endovascular stent. The infrarenal abdominal aortic aneurysmal sac measures up to approximately 4.2 cm maximal dimension. There is a type II endoleak ex tending from the anterior right iliac portion of the stent and progressing to the right and circling posterior to the iliac stent grafts. No intraperitoneal or retroperitoneal or pelvic mass lesion or adenopathy or ascites. Status post right partial colectomy for prior cecal volvulus. No bowel obstruction or intraperitoneal free air. [place] prominent bilobed fat-containing infraumbilical ventral midline fat and nonobstructed smal l bowel containing hernia. Moderately severe degenerative disc disease at L4-5 and L5-S1. Degenerative change at the apophyseal joints. No suspicious osteolytic or osteoblastic lesion is noted. IMPRESSION: Status post aortobiiliac endovascular graft with type II endoleak Status post right partial colectomy for prior cecal volvulus; no bowel obstruction or intraperitoneal free air Infraumbilical bilobed fat and nonobstructed small bowel containing midline ventral abdominal wall he rnia Small gallstone or small gallbladder wall calcification; consider gallbladder ultrasound correlation Reviewed, dictated and finalized at [facility]. Reviewed, dictated and finalized at location [facility]. E INSPECTOR IMPRESSION: Status post aortobiiliac endovascular graft with type II endoleak Status post right partial colectomy for prior cecal volvulus; no bowel obstruct ion or intraperitoneal free air Infraumbilical bilobed fat and nonobstructed small bowel containing midline maral tral abdominal wall hernia Small gallstone or small gallbladder wall calcification; consider gallbladder u ltrasound correlation
[2023-04-22 09:52] LABS: Estimated Glomerular Filt Rate 43
== END 2023-04-22 09:31 | disposition home or self-care (01) ==
PROVIDERS: PCP Clinical Nurse Specialist; Visit Provider Nurse Practitioner
DX: K43.9 Ventral hernia without obstruction or gangrene (principal); R93.2 Abnormal findings on diagnostic imaging of liver and biliary tract; Z95.828 Presence of other vascular implants and grafts; Z90.49 Acquired absence of other specified parts of digestive tract
CPT/HCPCS: 74177; Q9967

== ENCOUNTER 2023-05-05 12:16 | Outpatient (CLI) | payer MEDICARE, SELFPAY | END 2023-05-05 12:17 | disposition home or self-care (01) | LOC: ANHSURGERY 12:23 | PROVIDERS: PCP Clinical Nurse Specialist; Visit Provider Surgery | DX: Z01.818 Encounter for other preprocedural examination (principal); K43.2 Incisional hernia without obstruction or gangrene | CPT/HCPCS: 36415; 86850; 86900; 86901 ==

== ENCOUNTER 2023-05-11 13:44 | Inpatient (IN) | payer MEDICARE, SELFPAY ==
[2023-04-29 10:14] VITALS: BMI 25.9
--- NOTE | 2023-04-29 10:30 | PC.NURSE ---
PRE-OP INSTRUCTIONS, PLEASE READ CAREFULLY Report to the Outpatient Waiting Room, entrance under the green pavilion located off [facility], at time _1100_ on date _05/10/23_. Planned Procedure Time: _1 PM_. PACK A SMALL OVERNIGHT BAG AND LEAVE IN THE CAR Time changes happen often and if your time is changed the preop area will call you the afternoon before. - You and your visitor will be asked to self-screen and do not enter if you have any COVID symptoms. - A mask is optional within the hospital at this time. Patients may have clear liquids (water, carbonated beverages, clear teas, apple juice) until 3 hours prior to surgery (1000 AM) with a maximum of 20 ounces. - No food from midnight until time of surgery Take the following medications with a SIP of water the morning of surgery: _AMLODIPINE, ESCITALOPRAM, & ALBUTEROL INHALER IF NEEDED_ DO NOT STOP ANY OF YOUR OTHER PRESCRIPTION MEDICATIONS PRIOR TO SURGERY ?EXCEPT THE FOLLOWING Medications to discontinue per ANESTHESIA - _MULTIVITAMIN 3 DAYS PRIOR TO SURGERY, Date to take last dose 05/06/23_ Please no make-up, nail new zealander, hairspray, perfume, deodorant, or body powder the day of surgery. No jewelry (including any body piercings) or valuables the day of surgery, leave them at home. Please take a shower or bath the night before, or the morning of, surgery with an antibacterial soap. Wear comfortable, loose fitting clothing. - Jewelry must be removed prior to entering the operating room. Rings and piercings that are not removed may be cut off. - The hospital will not accept responsibility for valuables. - Please leave all valuables, including medications, at home the day of surgery. If you are going home after surgery, a licensed [place] driver must drive you home. - NO public transportation without another adult if you receive anesthesia. - We recommend that an adult stay with you for 24 hours following discharge. - We also recommend that you do not drive, make important decision, drink alcoholic beverages, or take any drugs that were not prescribed by your health care provider for at least 24 hours after your discharge time. Follow any additional instructions given to you from your surgeon. If you or anyone in your household have experienced Covid symptoms in the past week, please notify your surgeon or the nurse liaison at the phone number below for possible testing. Telephone instructions given to _PATIENT_and asked if any additional questions and then verbalized understanding. Patient advised to call surgeon office or pre surgery nurse liaison [phone] if any additional questions.
[2023-05-10] VITALS (12 sets, daily range): BP systolic 115–133; BP diastolic 57–70; PULSE 76–88; RESP 12–18; TEMP 36.2–36.6; O2SAT 95–100; BMI 25.9
[2023-05-10] MEDS: LACTATED RINGERS 1,000 ML 30 ML IV CONT ×2 (11:40→16:00)
[2023-05-10] MEDS: KETOROLAC 15 MG/ML VIAL (*BKC) IV PUSH (11:46)
[2023-05-10] MEDS: ACETAMINOPHEN 500 MG TABLET 1000 MG PO (11:47)
--- NOTE | 2023-05-10 12:39 | WPDANESEPPF ---
Anes - Initial Pre Proc Eval Procedure: Operation Date: 05/10/23 13:00 Proposed Procedures p Robotic Assisted Laparoscopic Incisional Hernia Repair, Possible Open - Brandon Mendoza MD Date/Time: 05/10/23 12:39 Surgeon: Brandon Mendoza MD Pre Op Diagnosis: reducible incisional 6x6cm hernia Patient Data Age: 78 Gender: F Height: 1.73 m Weight: 77.3 kg Last Vital Signs Temp 97.8 F 05/10/23 11:20 Pulse 85 05/10/23 11:20 Resp 18 05/10/23 11:20 BP 130/70 05/10/23 11:20 Pulse Ox 97 05/10/23 11:20 O2 Del Method Room Air 05/10/23 11:20 Allergies Allergy/AdvReac Type Severity Reaction Status Date / Time adhesive Allergy Unknown Rash Verified 05/10/23 11:28 Penicillins Allergy Unknown Rash Verified 05/10/23 11:28 poison carol extract Allergy Unknown Rash Verified 05/10/23 11:28 Sulfa (Sulfonamide Allergy Unknown Rash Verified 05/10/23 11:28 Antibiotics) SKIN GLUE Allergy Unknown RASH Uncoded 05/10/23 11:28 ITCHING. Home Medications Medication Instructions Recorded Confirmed Type cholecalciferol (vitamin D3) 25 1,000 unit PO DAILY 05/02/19 05/10/23 History mcg (1,000 unit) capsule calcium carbonate 600 mg-vitamin 1 tablet PO DAILY 12/07/20 05/10/23 History D3 20 mcg (800 unit) chewable tablet (Caltrate 600 plus D) aspirin 81 mg chewable tablet 81 mg PO DAILY@0800 #3 tabs 05/29/21 05/10/23 Rx (Children's Aspirin) lansoprazole 30 mg capsule,delayed 30 mg PO DAILY 01/17/23 05/10/23 History release multivitamin 1 tablet PO DAILY 01/17/23 05/10/23 History atorvastatin 10 mg tablet 10 mg PO DAILY #90 tabs 02/09/23 05/10/23 Rx eszopiclone 2 mg tablet (Lunesta) 2 mg PO QHS #30 tabs 04/05/23 05/10/23 Rx amlodipine 10 mg tablet See Rx Instructions .Route 04/11/23 05/10/23 Rx .COMPLEX #90 tabs polyethylene glycol 3350 17 gram 8.5 g PO DAILY #100 ea 04/13/23 05/10/23 Rx oral powder packet (Miralax) albuterol sulfate 90 mcg/actuation 1 puff inhalation Q4H PRN 04/14/23 04/29/23 Rx aerosol inhaler shortness of breath or wheezing #8.5 grams psyllium husk 0.52 gram capsule 2.6 g PO DAILY 04/14/23 05/10/23 History escitalopram oxalate 5 mg tablet 5 mg PO DAILY #30 tabs 05/02/23 05/10/23 Rx (Lexapro) lisinopril 40 mg tablet 40 mg PO DAILY #90 tabs 05/04/23 05/10/23 Rx Patient hx anesthesia problems: none Family hx anesthesia problems: none Results Review: All pre-operative results and documents have been reviewed as part of the pre-operative evaluation. [facility] Past Medical History Medical History Abdominal hernia Abnormal CT scan, gallbladder Aneurysm of infrarenal abdominal aorta Stable 4.0 cm fusiform aneurysm on CT of the abdomen and pelvis dated 12/07/2020. Breast cancer Status post radiation therapy and lumpectomy with subsequent bilateral mastectomy. Chronic obstructive pulmonary disease Colitis Colon cancer screening Diverticula of colon Diverticulosis Former smoker Gastroesophageal reflux disease (Unknown) Hyperlipidemia (Unknown) Hypertension (Unknown) Irritable bowel syndrome with constipation Osteoarthritis Osteopenia Shingles (08/2020) Ventral hernia without obstruction or gangrene Surgical History Surgical History History of bilateral mastectomy (04/2016) History of colonoscopy 2019 History of hemicolectomy Open right hemicolectomy with stapled [id number] ileocolic anastomosis perf 09/30/22 History of hysterectomy History of lumpectomy of left breast (07/2009) History of lumpectomy of right breast (11/2014) Status post cataract extraction of both eyes with insertion of intraocular lens (2014) Family History Family History Father Family history of malignant neoplasm of brain Family history of diabetes mellitus in first degree relative Malignant neoplasm of prosta
--- NOTE | 2023-05-10 13:06 | WPDHPUPDATE1 ---
History and Physical Update Update Date/Time: 05/10/23 13:06 History and Physical has been reviewed, including an updated exam of the patient. There are NO changes in the patient's condition. Risks, benefits, and alternatives have been discussed and questions answered. Patient agrees to proceed with procedure.
[2023-05-10] MEDS: ceFAZolin 2 GM/D5W 50 ML 2 GM/50 ML BAG IVPB (13:17)
[2023-05-10] MEDS: LIDO 1%/EPINEPHRINE 1:100,000 50 ML VIAL 30 ML INFILTRATE (14:23)
[2023-05-10] MEDS: BUPivacaine HCL 0.5% PF 30 ML VIAL INFILTRATE (14:24)
[2023-05-10] MEDS: fentaNYL CITRATE INJ (*CRX) 100 MCG/2 ML VIAL 25 MCG IV PUSH ×8 (16:20→16:45)
[2023-05-10] MEDS: HYDROmorphone HCL INJ (*CRX) 1 MG/ML SYR 0.25 MG IV PUSH ×5 (17:15→17:35)
--- NOTE | 2023-05-10 17:35 | W.PM.PROC2 ---
Procedure Note - Detailed Date of Procedure 05/10/23 Pre-op Diagnosis Reducible incisional hernia. (defect = 15cm long by 5 cm wide. Post-op Diagnosis Same Surgeon Brandon Mendoza MD
--- NOTE | 2023-05-10 18:47 | ADMGEN ---
This patient, Yaquelin Lee, was admitted to 3 [facility] Surg Room 306-02. Patient/family oriented to hospital policies and general routines including ID bracelet, bed and alarms, visiting hours, pain management, procedures, bathroom and other care routines, personal items, smoking policy, room service/diet, and visiting hours. Information on how to activate the Rapid Response Team has been discussed. Patient/Family are encouraged to report perceived risks to care and to ask questions if they do not understand what they are told or what they should do.
[2023-05-10] MEDS: FAMOTIDINE 20 MG TABLET PO (20:32)
[2023-05-10] MEDS: oxyCODONE HCL (*CRX) 5 MG TAB IR PO (20:32)
[2023-05-10] MEDS: DEXTROSE 5%/LACTATED RINGERS 1,000 ML 75 ML IV CONT (20:38)
[2023-05-10] MEDS: HYDROmorphone HCL INJ (*CRX) 1 MG/ML SYR IV PUSH (21:59)
[2023-05-11] VITALS: BP 128/63; PULSE 81; RESP 16; TEMP 36.2; O2SAT 91
[2023-05-11] MEDS: oxyCODONE HCL (*CRX) 5 MG TAB IR PO (01:19)
[2023-05-11] MEDS: HYDROmorphone HCL INJ (*CRX) 1 MG/ML SYR IV PUSH ×3 (02:47→08:34)
--- NOTE | 2023-05-11 03:43 | PC.NURSE ---
0315 Spoke with on-call general surgery (Dr. Jett) about patient's pain being uncontrolled post-op. New orders received for Dilaudid 1mg Q2H PRN.
[2023-05-11 06:00] VITALS: BP 126/65; PULSE 80; RESP 15; TEMP 36.6; O2SAT 97
[2023-05-11 08:00] VITALS: PULSE 73; RESP 16; O2SAT 94
--- NOTE | 2023-05-11 08:05 | WPDANESPN ---
Anes - Prog Note Post-Op Date/Time: 05/11/23 08:05 Vital Signs: Last Vital Signs Temp 36.6 C 05/11/23 06:00 Pulse 80 05/11/23 06:00 Resp 15 05/11/23 06:00 BP 126/65 05/11/23 06:00 Pulse Ox 97 05/11/23 06:00 O2 Del Method Room Air 05/10/23 20:00 O2 Flow Rate 3 05/10/23 18:29 Pain Score (VAS): 0 I/O: Intake & Output 05/10/23 05/11/23 05/11/23 23:59 07:59 15:59 Intake Total 500 650 Output Total 1000 Balance 500 -350 Patient Feedback: Patient satisfied with anesthetic care.
[2023-05-11] MEDS: ASPIRIN 81 MG CHEWABLE TABLET PO (09:00)
[2023-05-11] MEDS: MULTIVITAMINS THERAPEUTIC TAB (*BKC) 1 TABLET PO (09:25)
[2023-05-11] MEDS: CHOLECALCIFEROL 1,000 UNITS TABLET 1000 UNITS PO (09:25)
[2023-05-11] MEDS: FAMOTIDINE 20 MG TABLET PO ×2 (09:32→20:46)
[2023-05-11] MEDS: PANTOPRAZOLE 40 MG TABLET PO (09:33)
[2023-05-11] MEDS: ENOXAPARIN 40 MG/0.4 ML SYRINGE SUB-Q (09:34)
[2023-05-11] MEDS: ESCITALOPRAM OXALATE 5 MG TABLET PO (09:34)
[2023-05-11] MEDS: ATORVASTATIN 10 MG TABLET PO (09:34)
[2023-05-11] MEDS: polyethylene glycoL 3350 17 GM POWD.PACK 8.5 GM PO (09:36)
[2023-05-11] MEDS: lisinopriL 20 MG TABLET 40 MG PO (10:13)
--- NOTE | 2023-05-11 10:22 | W.PM.PROC2 ---
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 She has now developed incisional hernia through the small midline incision. Hernia is reducible. She presents now for a robotic assisted laparoscopic incisional hernia repair with mesh. Findings Upon entering the abdomen there were a few adhesions of the omentum to the anterior abdominal wall in the upper portion of the in this hernia. Hernia contents had pretty much reduced. There was no bowel involvement with the hernia. When all the adhesions were taken down from the abdominal wall I measured the hernia defect was 15cm in length by 5cm in greatest width. Description of Procedure After informed consent was obtained patient brought to the operating room she was placed supine position and general endotracheal anesthesia was administered. A Vasquez catheter was placed decompress the bladder the abdomen was then prepped and draped usual sterile fashion. Time-out was then performed correctly identifying the patient as well as procedure to be performed. She was given perioperative IV antibiotics. Under the abdomen left upper quadrant utilizing a 5mm Optiview port. Once inside the abdomen insufflated to adequate pneumoperitoneum of 15mmHg of CO2. For looking the central portion abdomen there is a fairly large hernia defect which had a few adhesions of the omentum to the upper portions of the hernia but no bowel involved within the hernia. I then placed additional robotic trocar ports on the left lateral abdominal wall. The left upper quadrant 5mm Optiview port was switched out to a 10mm Optiview port for bedside food and beverage assistant manager. The Prepared Response [place] robot was then brought to the patient's bedside and docked to the right side of the bed. The robotic arms were then attached robotic ports. Robotic instruments were then advanced into the abdomen under direct visualization. I then scrubbed out the procedure sent down the robotic console to perform the dissection robotically. Utilizing robotic hook dissection I then proceeded to take down the adhesions of the omentum to the abdominal wall and hernia sac. These came down easily and there was no bleeding. I then measured the defect and it was cm in length by 5cm in greatest width. I then proceeded to close the hernia defect by placement of a #1 Stratafix PDS suture. I approximated the edges of the fascia easily imbricated the hernia sac and attenuated fascia between the good edges of the muscle. I then remeasured and that a Bard Ventralight ST mesh measuring 20cm in length by 15cm in width would be appropriate coverage was the hernia repair. The mesh was placed through the bedside food and beverage assistant manager port and it had a self expanding ring to spread out the mesh. The suture in the center the mesh was then pulled transfascially centering the mesh on the closed defect. The barrier surface the mesh was placed intra-abdominal viscera and the prosthetic surface mesh was in contact with the undersurface anterior abdominal wall. I then proceeded to circumferentially fixate the mesh to the undersurface anterior abdominal wall utilizing a running 2-0 absorbable V lock suture. A small amount tension was placed on the mesh to prevent excessive rippling after pneumoperitoneum was decompressed. A 2-0 V lock absorbable sutures right at the center portion of the mesh to further some fixate the central portion of mesh to the undersurface anterior wall. I then removed the positioning ring from the abdomen in all the pieces of the positioning ring were noted to be removed from the abdomen. I then further examined t
[2023-05-11] MEDS: DEXTROSE 5%/LACTATED RINGERS 1,000 ML 75 ML IV CONT (10:39)
[2023-05-11] MEDS: HYDROcodone/acetaminophen (*CRX) 5-325 MG TABLET 1 TAB PO ×2 (11:41→20:46)
--- NOTE | 2023-05-11 11:59 | PC.NURSE ---
115ml bladder scan @ 1200. Pt states she has not urinated since her straight cath @ 0600. Micaelawick applied. Will monitor and push fluids
--- NOTE | 2023-05-11 12:09 | PM.PNGS ---
Progress Note: A&P Assessment and Plan (1) Incisional hernia without obstruction or gangrene: Code(s): K43.2 - Incisional hernia without obstruction or gangrene Status: Acute Assessment and Plan: Patient is postop day 1 following a robotic assisted laparoscopic incisional hernia repair with mesh. She has had some uncontrolled abdominal pain overnight, and is having issues with urinary retention. I have asked the nurse to bladder scan the patient again and place a Vasquez catheter if her bladder scan is high. Will start Flomax. Will also add Valium 5 mg p.o. q.12 hours to help with pain control. Encourage getting up to chair and ambulating today. Discussed importance of mobilizing after surgery. Plan I have discussed the patient's case and plan of care with Dr. Mendoza. Subjective Subjective Date/Time Seen: 05/11/23 12:09 Post Op day: 1 (Robotic assisted laparoscopic reducible incisional hernia repair with Bard Ventralight ST mesh) Patient reports: no flatus and no bowel movement Interval history: Patient seen today. She reports generalized abdominal pain. Her pain was uncontrolled overnight and she required Dilaudid through the night and this morning. She also had urinary retention and staff straight cathed the patient this morning around 6 am. It has been about 6 hours and she is still has not voided on her own. Requested nursing at the bedside to get another bladder scan. She denies nausea or vomiting, but has no appetite. She refused breakfast but is going to try and eat lunch. No other complaints at this time. She has not gotten out of bed since surgery due to her pain. Exam Const: General: comfortable and no acute distress Orientation/consciousness: patient oriented x3 GI: Inspection: non-distended and incision (incisions have steri strips intact c scant dry bloody drainage, no redness) GI Palp: Yes Soft to palpation (other than suprapubic fullness near the bladder), Yes Tenderness to palpation present (GI) (diffusely tender), No Guarding due to palpation present (GI) and No Hernia present Auscultation: Hypoactive bowel sounds present Neuro: General: moves all extremities and no focal motor deficits Extrem: General: no calf tenderness and no edema Psych: Mental Status: mental status grossly normal Insight: Good insight present (Psych) Objective Data Vital Signs Vital Signs: Vital Signs - 24 hr 05/10/23 16:00 05/10/23 16:45 05/10/23 16:15 Temperature 97.6 F Pulse Rate 76 81 82 Respiratory Rate 17 16 18 Blood Pressure 133/63 125/57 L 122/59 L Pulse Oximetry 100 96 97 Oxygen Delivery Simple Face Mask Nasal Cannula Simple Face Mask Oxygen Flow Rate 8 3 8 05/10/23 16:30 05/10/23 17:00 05/10/23 17:15 Temperature Pulse Rate 80 83 88 Respiratory Rate 12 14 14 Blood Pressure 121/61 115/60 121/59 L Pulse Oximetry 95 96 95 Oxygen Delivery Simple Face Mask Nasal Cannula Nasal Cannula Oxygen Flow Rate 8 3 3 05/10/23 17:30 05/10/23 18:53 05/10/23 18:29 Temperature 97.2 F L Pulse Rate 82 77 Respiratory Rate 12 14 Blood Pressure 127/62 121/59 L Pulse Oximetry 95 96 96 Oxygen Delivery Nasal Cannula Nasal Cannula Oxygen Flow Rate 3 3 05/10/23 22:00 05/10/23 20:00 05/11/23 00:00 Temperature 97.3 F L 97.2 F L Pulse Rate 81 81 Respiratory Rate 14 16 Blood Pressure 116/62 128/63 Pulse Oximetry 98 98 91 Oxygen Delivery Room Air Oxygen Flow Rate 05/11/23 06:00 Temperature 98 F Pulse Rate 80 Respiratory Rate 15 Blood Pressure 126/65 Pulse Oximetry 97 Oxygen Delivery Oxygen Flow Rate Intake/Output Intake/Output: Intake & Output 05/08/23 05/09/23 05/10/23 05/11/23 23:59 23:59 23:59 23:59 Intake Total 500 1650 Output Total 1000 Balance 500 650 Meds/Results Medications: Active Medications Generic Name Dose Route Start Last Admin Trade Name Freq PRN Reason Stop Dose Admin Hydrocodone Bitart/Acetaminophen 1 tab 05/10/23 18:00 0207
[2023-05-11] MEDS: TAMSULOSIN HCL 0.4 MG CAPSULE PO (12:30)
[2023-05-11] MEDS: diazePAM (*CRX) 5 MG TABLET PO ×2 (12:30→16:44)
[2023-05-11 14:00] VITALS: BP 127/64; PULSE 73; RESP 16; TEMP 35.9; O2SAT 94
[2023-05-11] MEDS: ONDANSETRON INJ 4 MG/2 ML VIAL IV PUSH (16:50)
[2023-05-11] MEDS: IBUPROFEN IV 800 MG/200 ML 800 MG/200 ML BAG 400 MG IVPB (18:59)
[2023-05-11 20:00] VITALS: O2SAT 90
[2023-05-11 22:19] VITALS: BP 108/61; PULSE 82; RESP 14; TEMP 36.4; O2SAT 90
[2023-05-12] MEDS: IBUPROFEN IV 800 MG/200 ML 800 MG/200 ML BAG 400 MG IVPB ×3 (01:22→17:29)
[2023-05-12 07:07] VITALS: BP 121/58; PULSE 77; RESP 14; TEMP 36.6; O2SAT 90
[2023-05-12] MEDS: polyethylene glycoL 3350 17 GM POWD.PACK 8.5 GM PO (08:41)
[2023-05-12] MEDS: ENOXAPARIN 40 MG/0.4 ML SYRINGE SUB-Q (08:42)
[2023-05-12] MEDS: CHOLECALCIFEROL 1,000 UNITS TABLET 1000 UNITS PO (08:43)
[2023-05-12] MEDS: PANTOPRAZOLE 40 MG TABLET PO (08:43)
[2023-05-12] MEDS: ASPIRIN 81 MG CHEWABLE TABLET PO (08:43)
[2023-05-12] MEDS: ESCITALOPRAM OXALATE 5 MG TABLET PO (08:43)
[2023-05-12] MEDS: TAMSULOSIN HCL 0.4 MG CAPSULE PO (08:43)
[2023-05-12] MEDS: diazePAM (*CRX) 5 MG TABLET PO ×2 (08:43→17:08)
[2023-05-12] MEDS: ATORVASTATIN 10 MG TABLET PO (08:43)
[2023-05-12] MEDS: FAMOTIDINE 20 MG TABLET PO ×2 (08:43→20:42)
[2023-05-12] MEDS: MULTIVITAMINS THERAPEUTIC TAB (*BKC) 1 TABLET PO (08:43)
[2023-05-12] MEDS: lisinopriL 20 MG TABLET 40 MG PO (08:55)
[2023-05-12 10:38] LABS: Estimated CRCL calculation 41 ml/min; Estimated Glomerular Filt Rate 54
[2023-05-12] MEDS: oxyCODONE HCL (*CRX) 5 MG TAB IR PO (11:05)
[2023-05-12 13:54] VITALS: BP 113/43; PULSE 95; RESP 16; TEMP 36.2; O2SAT 90
--- NOTE | 2023-05-12 17:02 | PM.PNGS ---
Progress Note: A&P Assessment and Plan (1) Incisional hernia without obstruction or gangrene: Code(s): K43.2 - Incisional hernia without obstruction or gangrene Status: Acute Assessment and Plan: Patient is postop day 2 following a robotic assisted laparoscopic incisional hernia repair with mesh. Abdominal pain is more controlled. Her Vasquez was removed and she is voiding well. Continue Flomax. Continue to increase activity and possibly discharge tomorrow if doing well. Plan I have discussed the patient's case and plan of care with Dr. Mendoza. Subjective Subjective Date/Time Seen: 05/12/23 17:02 Post Op day: 2 (Robotic assisted laparoscopic reducible incisional hernia repair with Bard Ventralight ST mesh ) Patient reports: no new complaints, feels better, pain is less, flatus and no bowel movement Interval history: Patient seen today. Her abdominal pain has improved. Her Vasquez catheter was removed and she is voiding well. She is currently having postop pain control with oral analgesics. She has gotten up and walked in the halls. She tolerated this well. Exam Const: General: comfortable and no acute distress Orientation/consciousness: patient oriented x3 GI: Inspection: non-distended and incision (incisions have steri strips intact c scant dry bloody drainage, no redness) GI Palp: Yes Soft to palpation, Yes Tenderness to palpation present (GI) (Expected incisional ) and No Guarding due to palpation present (GI) Auscultation: Hypoactive bowel sounds present Extrem: General: no calf tenderness and no edema Objective Data Vital Signs Vital Signs: Vital Signs - 24 hr 05/11/23 22:19 05/11/23 20:00 05/12/23 07:07 Temperature 97.5 F L 97.9 F Pulse Rate 82 77 Respiratory Rate 14 14 Blood Pressure 108/61 121/58 L Pulse Oximetry 90 90 90 Oxygen Delivery Room Air 05/12/23 13:54 Temperature 97.2 F L Pulse Rate 95 Respiratory Rate 16 Blood Pressure 113/43 L Pulse Oximetry 90 Oxygen Delivery Intake/Output Intake/Output: Intake & Output 05/09/23 05/10/23 05/11/23 05/12/23 23:59 23:59 23:59 23:59 Intake Total 500 1850 880 Output Total 1000 Balance 500 850 880 Meds/Results Medications: Active Medications Generic Name Dose Route Start Last Admin Trade Name Freq PRN Reason Stop Dose Admin Hydrocodone Bitart/Acetaminophen 1 tab 05/10/23 18:00 05/11/23 20:46 Hydrocodone/Acetaminophen (*Crx) 5-325 Mg Tablet PO 1 tab Q4H PRN Administration Pain Rated 4-6 Albuterol 1 puff 05/10/23 18:00 Albuterol Sulfate (*Sp) Aerosol 1 Puff INHALATION Q4HRT PRN shortness of breath or wheezing Aspirin 81 mg 05/11/23 08:00 05/12/23 08:43 Aspirin 81 Mg Chewable Tablet PO 81 mg DAILY@0800 [facility] Administration Atorvastatin Calcium 10 mg 05/11/23 09:00 05/12/23 08:43 Atorvastatin 10 Mg Tablet PO 10 mg DAILY [facility] Administration Calcium Carbonate 500 mg 05/11/23 09:00 05/12/23 08:43 Calcium/Vitamin D 500 Mg Tablet PO 06/10/23 08:59 500 mg DAILY [facility] Administration Diazepam 5 mg 05/11/23 12:10 05/12/23 08:43 Diazepam (*Crx) 5 Mg Tablet PO 5 mg BID [facility] Administration Docusate Sodium 100 mg 05/10/23 18:00 Docusate Sodium 100 Mg Capsule PO Q12H PRN Constipation Enoxaparin Sodium 40 mg 05/11/23 09:00 05/12/23 08:42 Enoxaparin 40 Mg/0.4 Ml Syringe SUB-Q 40 mg DAILY [facility] Administration Escitalopram Oxalate 5 mg 05/11/23 09:00 05/12/23 08:43 Escitalopram Oxalate 5 Mg Tablet PO 5 mg DAILY [facility] Administration Famotidine 20 mg 05/10/23 21:00 05/12/23 08:43 Famotidine 20 Mg Tablet PO 20 mg Q12HR [facility] Administration Fentanyl Citrate 25 mcg 05/09/23 15:27 05/10/23 16:45 Fentanyl Citrate Inj (*Crx) 100 Mcg/2 Ml Vial IV PUSH 25 mcg Q2M PRN Administration Pain Hydromorphone HCl 1 mg 05/11/23 03:15 05/11/23 08:34 Hydromorphone Hcl Inj (*Crx) 1 Mg/Ml Syr IV PUSH
[2023-05-12 20:00] VITALS: O2SAT 90
[2023-05-12] MEDS: SENNA/DOCUSATE SODIUM TABLET 2 TAB PO (20:42)
[2023-05-12] MEDS: HYDROcodone/acetaminophen (*CRX) 5-325 MG TABLET 1 TAB PO (20:45)
[2023-05-12 22:27] VITALS: BP 118/61; PULSE 87; RESP 16; TEMP 37.3; O2SAT 90
[2023-05-13] MEDS: IBUPROFEN IV 800 MG/200 ML 800 MG/200 ML BAG 400 MG IVPB (03:52)
[2023-05-13 06:10] VITALS: BP 134/68; PULSE 84; RESP 18; TEMP 37.1; O2SAT 90
[2023-05-13] MEDS: TAMSULOSIN HCL 0.4 MG CAPSULE PO (08:44)
[2023-05-13] MEDS: CHOLECALCIFEROL 1,000 UNITS TABLET 1000 UNITS PO (08:44)
[2023-05-13] MEDS: MULTIVITAMINS THERAPEUTIC TAB (*BKC) 1 TABLET PO (08:44)
[2023-05-13] MEDS: diazePAM (*CRX) 5 MG TABLET PO ×2 (08:44→16:37)
[2023-05-13] MEDS: ATORVASTATIN 10 MG TABLET PO (08:44)
[2023-05-13] MEDS: FAMOTIDINE 20 MG TABLET PO ×2 (08:44→20:42)
[2023-05-13] MEDS: lisinopriL 20 MG TABLET 40 MG PO (08:44)
[2023-05-13] MEDS: HYDROcodone/acetaminophen (*CRX) 5-325 MG TABLET 1 TAB PO ×2 (08:44→15:11)
[2023-05-13] MEDS: PANTOPRAZOLE 40 MG TABLET PO (08:44)
[2023-05-13] MEDS: ESCITALOPRAM OXALATE 5 MG TABLET PO (08:44)
[2023-05-13] MEDS: ASPIRIN 81 MG CHEWABLE TABLET PO (08:44)
[2023-05-13] MEDS: polyethylene glycoL 3350 17 GM POWD.PACK 8.5 GM PO (08:45)
[2023-05-13] MEDS: ENOXAPARIN 40 MG/0.4 ML SYRINGE SUB-Q (11:54)
[2023-05-13] MEDS: BISACODYL 10 MG SUPPOSITORY RECTAL (12:23)
--- NOTE | 2023-05-13 12:37 | WPDPN ---
Progress Note: A&P Assessment and Plan (1) Incisional hernia without obstruction or gangrene: Code(s): K43.2 - Incisional hernia without obstruction or gangrene Status: Acute Assessment and Plan: Patient is doing much better now. Pain is much better controlled. Give her suppository today see facilitate bowel movement. Will probably discharge her home later today on oral narcotic pain medications for pain at home p.r.n.. Subjective Date/time seen: 05/13/23 12:37 Interval history: Patient doing pretty well today. He is able to ambulate in the halls and up in her room. Her pain is much better and is controlled with oral pain medications. She has not had a bowel movement since her surgery would like to have one. She is tolerating a heart healthy diet. Exam GI: Other: Abdomen is soft and mildly distended. Port site incisions are healing well. Expected mild diffuse tenderness after the large incisional hernia repair. Objective Data Vital Signs Vital Signs: Vital Signs - 24 hr 05/12/23 13:54 05/12/23 22:27 05/12/23 20:00 Temperature 36.2 C L 37.3 C Pulse Rate 95 87 Respiratory Rate 16 16 Blood Pressure 113/43 L 118/61 Pulse Oximetry 90 90 90 Oxygen Delivery Room Air 05/13/23 06:10 Temperature 37.1 C Pulse Rate 84 Respiratory Rate 18 Blood Pressure 134/68 Pulse Oximetry 90 Oxygen Delivery Intake/Output Intake/Output: Intake & Output 05/10/23 05/11/23 05/12/23 05/13/23 23:59 23:59 23:59 23:59 Intake Total 500 1850 1320 718 Output Total 1000 Balance 371 753 3774 718 Meds/Results Medications: Active Medications Generic Name Dose Route Start Last Admin Trade Name Freq PRN Reason Stop Dose Admin Hydrocodone Bitart/Acetaminophen 1 tab 05/10/23 18:00 05/13/23 08:44 Hydrocodone/Acetaminophen (*Crx) 5-325 Mg Tablet PO 1 tab Q4H PRN Administration Pain Rated 4-6 Albuterol 1 puff 05/10/23 18:00 Albuterol Sulfate (*Sp) Aerosol 1 Puff INHALATION Q4HRT PRN shortness of breath or wheezing Aspirin 81 mg 05/11/23 08:00 05/13/23 08:44 Aspirin 81 Mg Chewable Tablet PO 81 mg DAILY@0800 [facility] Administration Atorvastatin Calcium 10 mg 05/11/23 09:00 05/13/23 08:44 Atorvastatin 10 Mg Tablet PO 10 mg DAILY [facility] Administration Calcium Carbonate 500 mg 05/11/23 09:00 05/13/23 08:44 Calcium/Vitamin D 500 Mg Tablet PO 06/10/23 08:59 500 mg DAILY [facility] Administration Diazepam 5 mg 05/11/23 12:10 05/13/23 08:44 Diazepam (*Crx) 5 Mg Tablet PO 5 mg BID [facility] Administration Docusate Sodium 100 mg 05/10/23 18:00 Docusate Sodium 100 Mg Capsule PO Q12H PRN Constipation Enoxaparin Sodium 40 mg 05/11/23 09:00 05/13/23 11:54 Enoxaparin 40 Mg/0.4 Ml Syringe SUB-Q 40 mg DAILY [facility] Administration Escitalopram Oxalate 5 mg 05/11/23 09:00 05/13/23 08:44 Escitalopram Oxalate 5 Mg Tablet PO 5 mg DAILY [facility] Administration Famotidine 20 mg 05/10/23 21:00 05/13/23 08:44 Famotidine 20 Mg Tablet PO 20 mg Q12HR [facility] Administration Fentanyl Citrate 25 mcg 05/09/23 15:27 05/10/23 16:45 Fentanyl Citrate Inj (*Crx) 100 Mcg/2 Ml Vial IV PUSH 25 mcg Q2M PRN Administration Pain Hydromorphone HCl 1 mg 05/11/23 03:15 05/11/23 08:34 Hydromorphone Hcl Inj (*Crx) 1 Mg/Ml Syr IV PUSH 1 mg Q2H PRN Administration Pain Rated 7-10 Ibuprofen 800 mg in 200 mls @ 400 mls/hr 05/11/23 18:20 05/13/23 11:35 Caldolor 800 Mg/200 Ml IVPB Not Given Q8H [facility] Lisinopril 40 mg 05/11/23 09:00 05/13/23 08:44 Lisinopril 20 Mg Tablet PO 40 mg DAILY [facility] Administration Miscellaneous Information 1 each 05/10/23 00:01 05/13/23 02:32 Nonformulary Drug (Eszopiclone [Lunesta] 2 Mg Tablet)Can Patient Use From Home, Hold Or We XX 06/09/23 00:00 Not Given [facility]AR[facility] Miscellaneous Information 1 each 05/10/23 00:01 05/13/23 02:32 Nonformulary Drug (Psylli
[2023-05-13 14:00] VITALS: BP 110/56; PULSE 93; RESP 16; TEMP 36.4; O2SAT 92
[2023-05-13 20:21] VITALS: BP 130/62; PULSE 91; RESP 16; TEMP 36.4; O2SAT 92
[2023-05-13] MEDS: SENNA/DOCUSATE SODIUM TABLET 2 TAB PO (20:42)
[2023-05-13] MEDS: oxyCODONE HCL (*CRX) 5 MG TAB IR PO (20:42)
[2023-05-13] MEDS: HYDROmorphone HCL INJ (*CRX) 1 MG/ML SYR IV PUSH (22:43)
[2023-05-14] MEDS: IBUPROFEN IV 800 MG/200 ML 800 MG/200 ML BAG 400 MG IVPB (03:06)
[2023-05-14 05:15] VITALS: BP 142/67; PULSE 81; RESP 16; TEMP 36.6; O2SAT 90
[2023-05-14] MEDS: HYDROcodone/acetaminophen (*CRX) 5-325 MG TABLET 1 TAB PO ×2 (05:30→11:38)
[2023-05-14 08:00] VITALS: PULSE 81; RESP 16; O2SAT 90
[2023-05-14] MEDS: ASPIRIN 81 MG CHEWABLE TABLET PO (08:37)
[2023-05-14] MEDS: ESCITALOPRAM OXALATE 5 MG TABLET PO (08:37)
[2023-05-14] MEDS: TAMSULOSIN HCL 0.4 MG CAPSULE PO (08:37)
[2023-05-14] MEDS: MULTIVITAMINS THERAPEUTIC TAB (*BKC) 1 TABLET PO (08:37)
[2023-05-14] MEDS: CHOLECALCIFEROL 1,000 UNITS TABLET 1000 UNITS PO (08:37)
[2023-05-14] MEDS: FAMOTIDINE 20 MG TABLET PO (08:37)
[2023-05-14] MEDS: PANTOPRAZOLE 40 MG TABLET PO (08:37)
[2023-05-14] MEDS: ATORVASTATIN 10 MG TABLET PO (08:37)
[2023-05-14] MEDS: polyethylene glycoL 3350 17 GM POWD.PACK 8.5 GM PO (08:38)
[2023-05-14] MEDS: diazePAM (*CRX) 5 MG TABLET PO (08:38)
[2023-05-14] MEDS: lisinopriL 20 MG TABLET 40 MG PO (08:38)
--- NOTE | 2023-05-14 10:20 | PM.DS ---
DS: Admitting Diagnosis Discharge Date 05/14/2023 Admitting Diagnosis Incisional hernia DS: Discharge Diagnosis Discharge Diagnosis (1) Encounter for follow-up examination after completed treatment for conditions other than malignant neoplasm: Code(s): Z09 - Encounter for follow-up examination after completed treatment for conditions other than malignant neoplasm Status: Acute (2) Other specified postprocedural states: Code(s): Z98.890 - Other specified postprocedural states Status: Acute DS: Summary Hospital Course Reason for hospitalization: Incisional hernia Hospital Course: This is a 70-year-old woman who presented with an incisional hernia in her midline abdomen. 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 She underwent robotic assisted laparoscopic incisional hernia repair with mesh by Dr. Lewis on 05/10/2023. Due to the size and complexity of the hernia, she was admitted for postoperative pain control and further treatment. On postop day 1 she was still having some uncontrolled abdominal pain and was having urinary retention. A Vasquez catheter was placed. Her activity was gradually advanced as tolerated. On postop day 2 the Vasquez catheter was removed and she was able to urinate without difficulty. On postop day 3 she was continuing to improve and a suppository was given to help stimulate her bowels. On postop day 4 her bowels were moving and her pain was adequately controlled. She remained hemodynamically stable. She was discharged on 05/14/2023. Status at Discharge Functional status at discharge: uses cane/walker Overall status at discharge: patient is progressing back to baseline Time Spent with Patient Time attestation: Total time spent providing and/or coordinating discharge services: Time spent: Less than 30 minutes Exam Const: General: no acute distress and alert Resp: Effort & Inspection: normal respiratory effort Auscultation: clear to auscultation bilaterally Cardio: Rate: regular rate Rhythm: regular rhythm Heart sounds: S1 normal heart sound present and S2 normal heart sound present GI: Inspection: non-distended and incision (Intact with Steri-Strips) GI Palp: Yes Soft to palpation and Yes Tenderness to palpation present (GI) (Incisional) Auscultation: normal bowel sounds Discharge Plan Discharge Attending physician on discharge: Brandon Mendoza Discharging Clinician: Michael Hines Patient Disposition: Home, Self-Care Activity: may shower and no driving Diet: regular Wound Care Instructions: incision open to air Discharge Instructions: No lifting more than 10-15 lb Walking 3 times daily. Stairs are okay. No driving for a week. Incisions open to air. Okay to wash over incisions daily with soap and water. Do not submerge in water for 2 weeks. Follow up with Dr. Mendoza as scheduled on 05/24/2023 at 9:15 a.m.. Pain medication has been sent to the pharmacy. Alternate this with ibuprofen and Tylenol. Continue home medications. Patient Instructions: Antibiotic Form Stand Alone Forms: General Discharge Information Follow-up/Referrals: Brandon Mendoza MD [Physician] - 2 Weeks Discharge Medications: New tamsulosin 0.4 mg Capsule 0.4 mg PO QAM Qty: 14 0RF oxycodone 5 mg Tablet 5 mg PO Q6H PRN (Reason: Pain Rated 7-10) Qty: 15 0RF Continued cholecalciferol (vitamin D3) 25 mcg (1,000 unit) capsule 1,000 unit PO DAILY lansoprazole 30 mg capsule,delayed release(DR/EC) 30 mg PO DAILY multivitamin Tablet 1 tablet PO DAILY psyllium husk 0.52 gram capsule 2.6 g PO DAILY albuterol sulfate 90 mcg/actuation HFA aerosol inhaler 1 puff inhalation Q4H PRN (Reason: shortness of breath or wheezing) Qty: 8.5 0RF polyethylene glycol 3350 [Miralax] 17 gram powder in packet 8.5 g PO DAILY Qty: 100 0RF Caltrate 600 plus D 600 mg (1,500 mg)-800 unit Tablet,Chewable 1 tablet
== END 2023-05-14 11:35 | disposition home or self-care (01) | DRG 355 ==
LOC: ANHSURGERY 13:52 → ANH3MEDSUR 13:52
PROVIDERS: Admitting Provider Surgery; PCP Clinical Nurse Specialist; Visit Provider Surgery
PROC: 0WUF4JZ Supplement Abdominal Wall with Synthetic Substitute, Percutaneous Endoscopic Approach (ICD-10-PCS; principal; 2023-05-10 13:00)
DX: K43.2 Incisional hernia without obstruction or gangrene (principal); G89.18 Other acute postprocedural pain; R33.8 Other retention of urine; I71.43 Infrarenal abdominal aortic aneurysm, without rupture; I10 Essential (primary) hypertension; K21.9 Gastro-esophageal reflux disease without esophagitis; J44.9 Chronic obstructive pulmonary disease, unspecified; M19.90 Unspecified osteoarthritis, unspecified site; M85.80 Other specified disorders of bone density and structure, unspecified site; K58.1 Irritable bowel syndrome with constipation; Z87.891 Personal history of nicotine dependence; Z85.3 Personal history of malignant neoplasm of breast; Z90.710 Acquired absence of both cervix and uterus; Z96.1 Presence of intraocular lens; Z98.42 Cataract extraction status, left eye; Z98.41 Cataract extraction status, right eye
CPT/HCPCS: 36415; 82565; A9270; C1781; J0690; J1100; J1170; J1650; J1741; J1885; J2250; J2405; J2704; J3010; J7120; J7121

== ENCOUNTER 2023-05-30 13:33 | Outpatient (CLI) | payer MEDICARE, SELFPAY ==
[2023-05-30 16:24] LABS: Basophils Absolute Auto 0.1 K/mm3 (0.0-0.1); Eosinophils Absolute Auto 1.5 K/mm3 (0-0.3); Eosinophils Percent Auto 13.6 % (0-4.4); Hematocrit 35.5 % (37.0-47.0); Hemoglobin 10.9 g/dL (12.0-15.0); Immature Granulocyte Absolute 0.05 K/mm3 (0.00-0.031); Immature Granulocyte Percent A 0.5 % (0-0.5); Lymphocytes Absolute Auto 2.45 K/mm3 (0.9-3.2); Lymphocytes Percent Auto 22.5 % (18.3-44.2); Mean Corpuscular HGB Conc 30.7 g/dl (32-36); Mean Corpuscular Hemoglobin 30.3 pg (26-34); Mean Corpuscular Volume 98.6 fl (80-100); Mean Platelet Volume 11.2 fl (7.4-10.4); Neutrophils Absolute Auto 5.8 K/mm3 (1.3-6.7); Neutrophils Percent Auto 53.4 % (45.5-73.1); Platelet Count Result 259 k/mm3 (150-375); Red Cell Distribution Width 14.4 % (11.5-14.5); White Blood Count 10.9 K/mm3 (4.5-10.0)
[2023-05-30 17:10] LABS: Alanine Aminotransferase 26 U/L (6-35); Albumin Level 3.9 g/dL (3.5-5.1); Alkaline Phosphatase 91 U/L (38-126); Anion Gap 8 mmol/L (8-16); Aspartate Amino Transferase 35 U/L (14-36); Bilirubin,Total 0.6 mg/dL (0.2-1.3); Blood Urea Nitrogen 23 mg/dL (7-17); Calcium 9.7 mg/dL (8.4-10.2); Carbon Dioxide 27 mmol/L (22-30); Chloride 103 mmol/L (98-107); Estimated Glomerular Filt Rate 48; Glucose 92 mg/dL (65-110); Potassium 4.1 mmol/L (3.4-5.0); Sodium 138 mmol/L (137-145)
== END 2023-05-30 13:34 | disposition home or self-care (01) ==
PROVIDERS: PCP Internal Medicine; Visit Provider Nurse Practitioner
DX: T78.40XA Allergy, unspecified, initial encounter (principal); G89.18 Other acute postprocedural pain
CPT/HCPCS: 36415; 80053; 85025

== ENCOUNTER 2023-07-26 12:40 | Outpatient (CLI) | payer MEDICARE, SELFPAY ==
--- NOTE | 2023-07-27 16:57 | WPDPFTINT ---
PFT Procedure Performed PFT Procedure Performed Spirometry with Pre/Post Bronchodilator Plethysmography (Lung Vol) Diffusing Cap (DLCO) Flow Vol Loop PFT Interpretation This is a pulmonary function test with pre and post-bronchodilator spirometry, plethysmography and diffusing capacity. The test was performed and results interpreted in accordance with the 2019 and 2005 ATS/ERS Task Force guidelines respectively using the Global Lung Function Initiative-2012 reference equations. Patient demonstrated good effort and cooperation. Reproducibility criteria were met. The quality of the pre bronchodilator spirometry maneuver was Grade A and post bronchodilator spirometry maneuver was Grade A. Findings: Spirometry: There is decreased maximal expiratory airflow at all lung volumes with concave expiratory flow tracing. The contour the inspiratory flow tracing is normal. The pre bronchodilator FVC is 2.92 L, 97% predicted. The pre bronchodilator FEV1 is 1.58 L, 70% predicted. The pre bronchodilator FEV1: FVC ratio is 54%. The post bronchodilator FVC is 3.27 L, representing a 12% increase. The post bronchodilator FEV1 is 1.77 L, representing a 12% increase. The post bronchodilator FEV1: FVC ratio is 54%. Plethysmography: The total lung capacity is 6.45 L, 114% predicted. The functional residual capacity is 4.27 L, 130% predicted. The residual volume is 3.53 L, 138% predicted. The residual volume: Total lung capacity ratio is 55%. Diffusing capacity: The diffusing capacity unadjusted for hemoglobin and carboxyhemoglobin is 13.8, 65% predicted. The diffusing capacity adjusted for alveolar volume is 3.04, 76% predicted. In comparison to previous pulmonary function testing on 11/17/2017 the post bronchodilator FVC has increased from 2.81 L to 3.27 L. The post bronchodilator FEV1 is unchanged from 1.67 L to 1.77 L. The total lung capacity is unchanged from 5.99 L to 6.45 L. The functional residual capacity is unchanged from 3.72 L to 4.27 L. The residual volume is unchanged from 3.33 L to 3.53 L. The diffusing capacity unadjusted for hemoglobin and carboxyhemoglobin is decreased from 18.2 to 13.8. The diffusing capacity adjusted for alveolar volume is unchanged decreased from 3.79 to 3.04. Impression: There is a mild obstructive abnormality. There is no significant improvement after inhaling a single dose of albuterol. the lung volumes are normal. The diffusing capacity unadjusted for hemoglobin and carboxyhemoglobin is mildly decreased and normalizes when adjusted for alveolar volume. In comparison to previous pulmonary function testing on 11/17/2017 there has been a greater than anticipated time dependent increase in the FVC and a greater than anticipated time dependent decrease in the diffusing capacity with no significant change in the FEV1, total lung capacity, functional residual capacity or residual volume. Clinical correlation is recommended.
== END 2023-07-26 12:41 | disposition home or self-care (01) ==
LOC: ANHPFT 12:41
PROVIDERS: PCP Internal Medicine; Visit Provider Clinical Nurse Specialist
DX: J44.9 Chronic obstructive pulmonary disease, unspecified (principal)
CPT/HCPCS: 94060; 94726; 94729

== ENCOUNTER 2023-09-21 08:53 | Outpatient (CLI) | payer MEDICARE, BC, SELFPAY ==
--- NOTE | ~2023-09-21 | US_ITS ---
EXAMINATION: US aorta DATE: 09/21/2023 09:17 INDICATION: Infrarenal abdominal aortic aneurysm. TECHNIQUE: Grayscale, color Doppler, and pulsed Doppler images of the aorta and common iliac arteries were obtained. COMPARISON: Ultrasound 09/14/2022, CT abdomen and pelvis 04/22/2023 FINDINGS: The aorta demonstrates a fusiform aneurysm measuring approximately 4.6 cm. A stent graft is noted. Th e common iliac arteries are normal in caliber. IMPRESSION: 1. Fusiform abdominal aortic aneurysm measuring approximately 4.6 cm with stent graft, increased from 4.1 cm on 04/22/23. Abdomen and pelvis CTA without and with contrast is recommended. Reviewed, dictated and finalized at location A. IMPRESSION: 1. Fusiform abdominal aortic aneurysm measuring approximately 4.6 cm with stent graft, increased from 4.1 cm on 04/22/23. Abdomen and pelvis CTA without and wi th contrast is recommended.
== END 2023-09-21 08:54 ==
LOC: MICIMG 08:54
PROVIDERS: PCP Clinical Nurse Specialist; Visit Provider Clinical Nurse Specialist
DX: I71.43 Infrarenal abdominal aortic aneurysm, without rupture (principal)
CPT/HCPCS: 76775

== ENCOUNTER 2023-11-07 10:38 | Outpatient (CLI) | payer MEDICARE, SELFPAY ==
--- NOTE | ~2023-11-07 | US_ITS ---
RIGHT LOWER EXTREMITY VENOUS ULTRASOUND Ordering provider: BENITEZ Sarabia-C History: . M79.661 - Pain in right lower leg . Comparison: None. FINDINGS: --COMMON FEMORAL: Patent and free of thrombus. Normal compressibility, phasic flow and augmentation. --PROXIMAL SUPERFICIAL FEMORAL: Patent and free of thrombus. Normal compressibility, phasic flow and augmentation. --DISTAL SUPERFICIAL FEMORAL: Patent and free of thrombus. Normal compressibility, phasic flow and au gmentation. --POPLITEAL: Patent and free of thrombus. Normal compressibility, phasic flow and augmentation. --POSTERIOR TIBIAL: Patent and free of thrombus. Normal compressibility, phasic flow and augmentation . IMPRESSION: Negative right lower extremity venous US. No deep vein thrombosis. Reviewed, dictated and finalized at location A.
== END 2023-11-07 10:39 | disposition home or self-care (01) ==
PROVIDERS: PCP Clinical Nurse Specialist; Visit Provider Clinical Nurse Specialist
DX: M79.661 Pain in right lower leg (principal); D64.9 Anemia, unspecified
CPT/HCPCS: 36415; 80053; 82728; 83735; 85025; 93971

== ENCOUNTER 2023-11-07 14:30 | Outpatient (CLI) | payer MEDICARE, SELFPAY ==
[2023-11-07 19:09] LABS: Basophils Absolute Auto 0.1 K/mm3 (0.0-0.1); Basophils Percent Auto 0.8 % (0.2-1.2); Eosinophils Absolute Auto 0.2 K/mm3 (0-0.3); Eosinophils Percent Auto 2.1 % (0-4.4); Hematocrit 35.3 % (37.0-47.0); Immature Granulocyte Absolute 0.03 K/mm3 (0.00-0.031); Immature Granulocyte Percent A 0.3 % (0-0.5); Lymphocytes Absolute Auto 2.67 K/mm3 (0.9-3.2); Lymphocytes Percent Auto 27.9 % (18.3-44.2); Mean Corpuscular HGB Conc 31.2 g/dl (32-36); Mean Corpuscular Hemoglobin 31.4 pg (26-34); Mean Corpuscular Volume 100.9 fl (80-100); Mean Platelet Volume 11.1 fl (7.4-10.4); Monocytes Absolute Auto 0.8 K/mm3 (0.1-0.6); Monocytes Percent Auto 7.9 % (2.6-8.5); Neutrophils Absolute Auto 5.8 K/mm3 (1.3-6.7); Platelet Count Result 242 k/mm3 (150-375); Red Cell Distribution Width 13.6 % (11.5-14.5); White Blood Count 9.6 K/mm3 (4.5-10.0)
[2023-11-07 19:41] LABS: Alanine Aminotransferase 24 U/L (6-35); Albumin Level 4.4 g/dL (3.5-5.1); Alkaline Phosphatase 85 U/L (38-126); Anion Gap 10 mmol/L (4-12); Aspartate Amino Transferase 39 U/L (14-36); Bilirubin,Total 0.5 mg/dL (0.2-1.3); Blood Urea Nitrogen 26 mg/dL (7-17); Calcium 9.6 mg/dL (8.4-10.2); Carbon Dioxide 29 mmol/L (22-30); Chloride 98 mmol/L (98-107); Estimated Glomerular Filt Rate 36; Glucose 113 mg/dL (65-110); Magnesium 2.1 mg/dL (1.6-2.3); Potassium 4.3 mmol/L (3.4-5.0); Sodium 137 mmol/L (137-145)
== END 2023-11-07 14:31 | disposition home or self-care (01) ==
LOC: ANHGOSHLAB 14:32
PROVIDERS: PCP Clinical Nurse Specialist; Visit Provider Clinical Nurse Specialist
DX: R53.1 Weakness (principal); R25.2 Cramp and spasm; D64.9 Anemia, unspecified; F41.9 Anxiety disorder, unspecified; K62.5 Hemorrhage of anus and rectum
CPT/HCPCS: 36415; 80053; 82728; 83735; 85025

== ENCOUNTER 2023-11-21 11:06 | Outpatient (CLI) | payer MEDICARE, SELFPAY ==
[2023-11-21 14:59] LABS: Anion Gap 8 mmol/L (4-12); Blood Urea Nitrogen 23 mg/dL (7-17); Calcium 9.5 mg/dL (8.4-10.2); Carbon Dioxide 29 mmol/L (22-30); Chloride 99 mmol/L (98-107); Estimated Glomerular Filt Rate 36; Glucose 89 mg/dL (65-110); Potassium 4.3 mmol/L (3.4-5.0); Sodium 136 mmol/L (137-145)
== END 2023-11-21 11:07 | disposition home or self-care (01) ==
LOC: ANHGOSHLAB 11:08
PROVIDERS: PCP Clinical Nurse Specialist; Visit Provider Clinical Nurse Specialist
DX: I10 Essential (primary) hypertension (principal)
CPT/HCPCS: 36415; 80048

== ENCOUNTER 2023-12-14 11:14 | Outpatient (CLI) | payer MEDICARE, SELFPAY ==
[2023-12-14 21:22] LABS: Anion Gap 7 mmol/L (4-12); Blood Urea Nitrogen 21 mg/dL (7-17); Calcium 9.9 mg/dL (8.4-10.2); Carbon Dioxide 30 mmol/L (22-30); Chloride 100 mmol/L (98-107); Estimated Glomerular Filt Rate 40; Glucose 102 mg/dL (65-110); Potassium 4.6 mmol/L (3.4-5.0); Sodium 137 mmol/L (137-145)
== END 2023-12-14 11:15 | disposition home or self-care (01) ==
LOC: ANHGOSHLAB 11:16
PROVIDERS: PCP Clinical Nurse Specialist; Visit Provider Clinical Nurse Specialist
DX: R94.4 Abnormal results of kidney function studies (principal)
CPT/HCPCS: 36415; 80048

== ENCOUNTER 2024-01-16 11:10 | Outpatient (CLI) | payer MEDICARE, SELFPAY ==
[2024-01-16 14:43] LABS: Alanine Aminotransferase 21 U/L (6-35); Albumin Level 4.3 g/dL (3.5-5.1); Alkaline Phosphatase 78 U/L (38-126); Anion Gap 10 mmol/L (4-12); Aspartate Amino Transferase 43 U/L (14-36); Bilirubin,Total 0.5 mg/dL (0.2-1.3); Blood Urea Nitrogen 21 mg/dL (7-17); Calcium 9.8 mg/dL (8.4-10.2); Carbon Dioxide 24 mmol/L (22-30); Chloride 103 mmol/L (98-107); Estimated Glomerular Filt Rate 36; Glucose 137 mg/dL (65-110); Potassium 4.5 mmol/L (3.4-5.0); Sodium 137 mmol/L (137-145)
[2024-01-16 14:50] LABS: Basophils Absolute Auto 0.1 K/mm3 (0.0-0.1); Basophils Percent Auto 0.9 % (0.2-1.2); Eosinophils Absolute Auto 0.4 K/mm3 (0-0.3); Eosinophils Percent Auto 4.6 % (0-4.4); Hematocrit 33.8 % (37.0-47.0); Hemoglobin 11.1 g/dL (12.0-15.0); Immature Granulocyte Absolute 0.02 K/mm3 (0.00-0.031); Immature Granulocyte Percent A 0.3 % (0-0.5); Lymphocytes Percent Auto 28.6 % (18.3-44.2); Mean Corpuscular HGB Conc 32.8 g/dl (32-36); Mean Corpuscular Hemoglobin 32.4 pg (26-34); Mean Corpuscular Volume 98.5 fl (80-100); Mean Platelet Volume 10.8 fl (7.4-10.4); Monocytes Absolute Auto 0.6 K/mm3 (0.1-0.6); Monocytes Percent Auto 8.2 % (2.6-8.5); Neutrophils Absolute Auto 4.4 K/mm3 (1.3-6.7); Neutrophils Percent Auto 57.4 % (45.5-73.1); Platelet Count Result 224 k/mm3 (150-375); Red Blood Count 3.43 M/mm3 (4.2-5.4); Red Cell Distribution Width 13.3 % (11.5-14.5); White Blood Count 7.7 K/mm3 (4.5-10.0)
[2024-01-16 15:47] LABS: Hepatitis C Virus Antibody Negative (Negative)
[2024-01-17 12:13] LABS: ANA Cascade Screen NEGATIVE (NEGATIVE)
[2024-01-18 14:07] LABS: Creatinine, Random Urine 50 mg/dL (20-275); Total Protein/Creatinine Ratio 100 mg/g creat (24-184)
[2024-01-19 11:53] LABS: Albumin 3.9 g/dL (3.8-4.8); Alpha 1 Globulin 0.3 g/dL (0.2-0.3); Alpha 2 Globulin 0.9 g/dL (0.5-0.9); Beta 1 Globulin 0.5 g/dL (0.4-0.6)
== END 2024-01-16 11:11 | disposition home or self-care (01) ==
LOC: ANHGOSHLAB 11:12
PROVIDERS: PCP Clinical Nurse Specialist; Visit Provider Clinical Nurse Specialist
DX: R94.4 Abnormal results of kidney function studies (principal); D64.9 Anemia, unspecified; R53.1 Weakness
CPT/HCPCS: 36415; 80053; 82570; 84155; 84156; 84165; 84166; 85025; 86038; 86225; 86235; 86364; 86803

== ENCOUNTER 2024-03-09 10:32 | Emergency (ER) | payer MEDICARE, SELFPAY ==
[2024-03-09 10:46] VITALS: BP 125/68; PULSE 88; RESP 16; TEMP 36.9; O2SAT 98
--- NOTE | 2024-03-09 10:53 | ED_ITS ---
HPI - URI/Sore Throat General Chief Complaint: Upper Respiratory Infection Stated Complaint: Congestion Time Seen by Provider: 03/09/24 10:55 Source: patient Mode of arrival: ambulatory Limitations: no limitations History of Present Illness HPI Narrative: Yaquelin is a 79-year-old female patient presenting to the clinic today with complaints of sneezing, cough, and chest congestion x2 days. She reports no known fever, chills, or body aches. She denies any chest pain or shortness of breath. Is concerned that she may have bronchitis. MD elicited complaint: cough, nasal congestion and other (Chest congestion) Related Data Home Medications Medication Instructions Recorded Confirmed cholecalciferol (vitamin D3) 25 1,000 unit PO DAILY 05/02/19 03/09/24 mcg (1,000 unit) capsule calcium 600 mg (as carbonate)-vit 1 tablet PO DAILY 12/07/20 03/09/24 D3 20 mcg (800 unit) chewable tablet (Caltrate plus D) multivitamin 1 tablet PO DAILY 01/17/23 03/09/24 levocetirizine 5 mg tablet (Xyzal) 5 mg PO TID 06/30/23 03/09/24 triamcinolone acetonide 0.1 % 1 applic topical DAILY PRN Rash 06/30/23 03/09/24 topical cream lansoprazole 30 mg capsule,delayed 15 mg PO DAILY 08/17/23 03/09/24 release Allergies Allergy/AdvReac Type Severity Reaction Status Date / Time adhesive Allergy Unknown Rash Verified 03/09/24 10:39 Penicillins Allergy Unknown Rash Verified 03/09/24 10:39 poison carol extract Allergy Unknown Rash Verified 03/09/24 10:39 Sulfa (Sulfonamide Allergy Unknown Rash Verified 03/09/24 10:39 Antibiotics) SKIN GLUE Allergy Unknown RASH Uncoded 03/09/24 10:39 ITCHING. Review of Systems Review of Systems: Pertinent positives per HPI. Patient denies any fever, chills, rash, headache, visual changes, dizziness, shortness of breath, chest pain, palpitations, nausea, vomiting, diarrhea, constipation, abdominal pain, or any urinary issues. PMFSH Past Medical History Medical History Abdominal hernia Abnormal CT scan, gallbladder Aneurysm of infrarenal abdominal aorta Stable 4.0 cm fusiform aneurysm on CT of the abdomen and pelvis dated 12/07/2020. Breast cancer Status post radiation therapy and lumpectomy with subsequent bilateral mastectomy. Chronic obstructive pulmonary disease Colitis Colon cancer screening Diverticula of colon Diverticulosis Former smoker Gastroesophageal reflux disease (Unknown) Hyperlipidemia (Unknown) Hypertension (Unknown) Irritable bowel syndrome with constipation Osteoarthritis Osteopenia Post-operative pain Shingles (08/2020) Ventral hernia without obstruction or gangrene Surgical History Surgical History History of bilateral mastectomy (04/2016) History of colonoscopy 2018 History of hemicolectomy Open right hemicolectomy with stapled [id number] ileocolic anastomosis perf 09/30/22 History of hysterectomy History of lumpectomy of left breast (07/2009) History of lumpectomy of right breast (11/2014) Hx of hernia repair Robotic assisted laparoscopic reducible incisional hernia repair with [employer] Ventralight ST mesh 9 (defect= 15x5cm) 05/10/23 SAW Status post cataract extraction of both eyes with insertion of intraocular lens (2014) Family History Family History Father Family history of malignant neoplasm of brain Family history of diabetes mellitus in first degree relative Malignant neoplasm of prostate Diabetes mellitus Mother Hypertension Patient's mother is Sibling Hypertension Patient's sister is in good health Family history of diabetes mellitus in first degree relative Diabetes mellitus Family history of malignant neoplasm of urinary bladder Family history of chronic obstructive pulmonary disease Dementia Other Family history of allergic disorder Family history of cardiovascular disease Social History Social History Social History: The patient is and lives with her in [place]. She has no children. 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 Smoked 0.5 packs of cigarettes a day for many years and quit in early 2019. No alcohol or illicit substance abuse. She designates her or her sister, Phyllis Laguerre, as her surrogate decision makers. Code status: Full code. Smoking packs per day: 1 Smoking cigarettes per day: 20.0 Years smoked: 30 Smoking pack-years: 30.00 Smoking status: Never smoker Tobacco type: cigarettes Second hand tobacco smoke exposure: No Smoking end date: 04/04/19 Additional smoking assessment comments: STATES 1PK/DAY THEN DECREASED OVER 3 YRS TO FINALLY QUITTING Alcohol intake: never Drinks per week: 1 Substance use: never Substance use type: does not use Do You Feel Safe in your Home?: Yes Lack of Transportation: No Lack of Food: Never True Current Housing: I Have Housing Concerned About Future Housing: No Difficulty Paying Gas/Electric Bills: No Difficulty Paying for Meds: No Currently Unemployed: No Education: Bachelor's Degree Difficulty w/ Childcare or Family Care: No Living arrangements: with family Occupation/Education: retired Gender identity (if verbalized by the patient): Female Spiritual care concerns: No Comments At the time of my signature, I reviewed and agree with the nursing past medical, surgical, social, and family history. There is no relevant family history pertinent to the patient complaint. Exam Narrative: General: Well-developed, well nourished, in no apparent distress Head: Normocephalic, atraumatic Eyes: Pupils equally round and reactive to light bilaterally, EOM intact, sclera and conjunctive clear, no discharge, lids normal Ears: TMs intact and clear, ear canals clear, no drainage, grossly hearing normal. Nose: Nares patent, clear nasal discharge, moderate inflammation, no sinus tenderness. Mouth: Oral pharynx without lesions or masses, good dentition, MMM. Postnasal drip Neck: Supple, trachea midline, no enlargement of anterior or posterior cervical nodes, no thyroid masses or goiter palpable. Cardio: Regular rate and rhythm, s1 and s2 normal, no murmur appreciated. Resp: Clear to auscultation bilaterally, no rhonchi, rales, wheezing or rubs Course Course Emergency Course: Portions of this record may have been created with voice recognition software. Level of Care: Express Care Visit Vital Signs Vital signs: Vital Signs Temperature 36.9 C 03/09/24 10:46 Pulse Rate 88 03/09/24 10:46 Respiratory Rate 16 03/09/24 10:46 Blood Pressure 125/68 03/09/24 10:46 Pulse Oximetry 98 03/09/24 10:46 Temperature 36.9 C 03/09/24 10:46 Pulse Rate 88 03/09/24 10:46 Respiratory Rate 16 03/09/24 10:46 Blood Pressure 125/68 03/09/24 10:46 Pulse Oximetry 98 03/09/24 10:46 Vital signs reviewed MDM - URI/Sore Throat MDM Narrative Medical decision making narrative: At the time of visit patient is resting comfortably on the exam table. Patient appears to be nontoxic. Plan: I suspect patient has URI with cough and congestion. Prescription for albuterol inhaler and prednisone was sent to the pharmacy. Supportive measures were discussed with the patient and they voiced understanding discharge instructions and agrees to treatment plan. Return precautions reviewed Differential Diagnosis Differential diagnosis: Likely upper respiratory infection, otitis media, sinusitis, viral infection, bronchitis, influenza, pharyngitis and other (COVID) Discharge Plan Discharge Clinical Impression: URI with cough and congestion Patient Disposition: Home, Self-Care Condition: Stable Instructions: Antibiotic Form, Upper Respiratory Infection (ED) Additional Instructions: Take prescription medications only as prescribed-albuterol inhaler and prednisone Increase fluids and stay well hydrated Tylenol/motrin for pain/fever Flonase and OTC antihistamines as directed Vicks vapor rub to open sinuses Sinus rinses for congestion Cepacol spray, cough drops, throat lozenges, warm tea with honey/lemon, gargle salt water to soothe throat BRAT diet for diarrhea Clear liquids x 24 hours then advance as tolerated for nausea/vomiting Go to the ED if you develop a worsening in your condition- high fever not controlled by Tylenol or Motrin, dehydration, weakness, lethargy, shortness of breath, or chest pain. Follow up with your PCP in 3-5 days if symptoms persist. Prescriptions: New prednisone 20 mg tablet 40 mg PO DAILY 5 Days Qty: 10 0RF albuterol sulfate 90 mcg/actuation HFA aerosol inhaler 2 puff inhalation Q4-6H PRN (Reason: shortness of breath or wheezing) 30 Days Qty: 8.5 0RF No Action cholecalciferol (vitamin D3) 25 mcg (1,000 unit) capsule 1,000 unit PO DAILY multivitamin Tablet 1 tablet PO DAILY lansoprazole 30 mg capsule,delayed release(DR/EC) 15 mg PO DAILY albuterol sulfate 90 mcg/actuation HFA aerosol inhaler 1 puff inhalation Q4H PRN (Reason: shortness of breath or wheezing) Qty: 8.5 0RF hydrocodone-acetaminophen 5-325 mg tablet 1 tablet PO Q6H PRN (Reason: pain) Qty: 25 0RF polyethylene glycol 3350 [Miralax] 17 gram powder in packet 8.5 g PO DAILY Qty: 100 0RF levocetirizine [Xyzal] 5 mg tablet 5 mg PO TID triamcinolone acetonide 0.1 % cream 1 applic topical DAILY PRN (Reason: Rash) Caltrate 600 plus D 600 mg (1,500 mg)-800 unit Tablet,Chewable 1 tablet PO DAILY aspirin [Children's Aspirin] 81 mg Tablet,Chewable 81 mg PO DAILY@0800 Qty: 3 0RF hydroxyzine HCl 25 mg tablet 25 mg PO TID PRN (Reason: itching) Qty: 30 0RF atorvastatin 10 mg tablet 10 mg PO DAILY Qty: 90 1RF amlodipine 10 mg tablet 10 mg PO DAILY Qty: 90 1RF Rx Instructions: DUE FOR APPOINTMENT IN FEBRUARY ropinirole 0.5 mg tablet 0.5 mg PO QHS Qty: 90 0RF Rx Instructions: DUE FOR APPOINTMENT IN FEBRUARY eszopiclone [Lunesta] 3 mg tablet 3 mg PO QHS Qty: 30 1RF escitalopram oxalate [Lexapro] 5 mg tablet 5 mg PO DAILY Qty: 90 1RF lisinopril 20 mg tablet 20 mg PO DAILY Qty: 90 0RF Follow-up/Referrals: Alexx Gamble DO [Primary Care Provider] - Time of Disposition: 11:09 Quality NIHSS Nursing Documentation ED NIHSS nursing documentation: reviewed/agree
== END 2024-03-09 11:12 | disposition home or self-care (01) ==
PROVIDERS: Emergency Provider Nurse Practitioner Family; PCP Internal Medicine
DX: J06.9 Acute upper respiratory infection, unspecified (principal); R05.9 Cough, unspecified; Z87.891 Personal history of nicotine dependence; I10 Essential (primary) hypertension; E78.5 Hyperlipidemia, unspecified; M19.90 Unspecified osteoarthritis, unspecified site; M85.80 Other specified disorders of bone density and structure, unspecified site; J44.9 Chronic obstructive pulmonary disease, unspecified; Z85.3 Personal history of malignant neoplasm of breast; Z92.3 Personal history of irradiation; Z90.13 Acquired absence of bilateral breasts and nipples
CPT/HCPCS: 99213; G0463

== ENCOUNTER 2024-03-16 09:24 | Emergency (ER) | payer MEDICARE, SELFPAY ==
[2024-03-16 09:40] VITALS: BP 122/73; PULSE 87; RESP 18; TEMP 36.4; O2SAT 97
--- NOTE | 2024-03-16 10:07 | ED.URI ---
HPI - URI/Sore Throat General Chief Complaint: Upper Respiratory Infection Stated Complaint: Congestion History of Present Illness HPI Narrative: 79-year-old female presented for complaint of nasal congestion, postnasal drainage and cough for over 1 week. Patient was seen here 1 week ago for the same complaint. Took a steroid as prescribed with minimal relief. Also using the prescribed albuterol inhaler as needed. Denies shortness of breath, wheezing, nausea vomiting, diarrhea or lethargy. Related Data Home Medications ?Medication ?Instructions ?Recorded ?Confirmed ?Last Taken ?Type cholecalciferol (vitamin D3) 25 1,000 unit PO DAILY 05/02/19 03/09/24 05/07/23 History mcg (1,000 unit) capsule calcium 600 mg (as carbonate)-vit 1 tablet PO DAILY 12/07/20 03/09/24 05/07/23 History D3 20 mcg (800 unit) chewable tablet (Caltrate plus D) multivitamin 1 tablet PO DAILY 01/17/23 03/09/24 05/07/23 History levocetirizine 5 mg tablet (Xyzal) 5 mg PO TID 06/30/23 03/09/24 Unknown History triamcinolone acetonide 0.1 % 1 applic topical DAILY PRN Rash 06/30/23 03/09/24 Unknown History topical cream lansoprazole 30 mg capsule,delayed 15 mg PO DAILY 08/17/23 03/09/24 Unknown History release Allergies Allergy/AdvReac Type Severity Reaction Status Date / Time adhesive Allergy Unknown Rash Verified 03/09/24 10:39 Penicillins Allergy Unknown Rash Verified 03/09/24 10:39 poison carol extract Allergy Unknown Rash Verified 03/09/24 10:39 Sulfa (Sulfonamide Allergy Unknown Rash Verified 03/09/24 10:39 Antibiotics) SKIN GLUE Allergy Unknown RASH Uncoded 03/09/24 10:39 ITCHING. Review of Systems Review of Systems: CONSTITUTIONAL: Denies body aches, fever, chills, or sweats. EYES: Denies visual changes, redness, or discharge. ENT: reports rhinorrhea, congestion, sore throat CARDIOVASCULAR: Denies chest pain, palpitations, or edema. RESPIRATORY: reports cough Denies dyspnea. GASTROINTESTINAL: Denies abdominal pain, nausea, vomiting, or diarrhea. SKIN: Denies rash MUSCULOSKELETAL: Denies back pain, joint pain, or myalgia. NEUROLOGIC: reports headache [facility] Past Medical History Medical History Post-operative pain Ventral hernia without obstruction or gangrene Abnormal CT scan, gallbladder Abdominal hernia Colon cancer screening Diverticula of colon Irritable bowel syndrome with constipation Colitis Shingles (08/2020) Diverticulosis Former smoker Gastroesophageal reflux disease (Unknown) Chronic obstructive pulmonary disease Aneurysm of infrarenal abdominal aorta Stable 4.0 cm fusiform aneurysm on CT of the abdomen and pelvis dated 12/07/2020. Breast cancer Status post radiation therapy and lumpectomy with subsequent bilateral mastectomy. Osteoarthritis Hypertension (Unknown) Hyperlipidemia (Unknown) Osteopenia Surgical History Surgical History Hx of hernia repair Robotic assisted laparoscopic reducible incisional hernia repair with Bard Ventralight ST mesh 9 (defect= 15x5cm) 05/10/23 SAW History of hemicolectomy Open right hemicolectomy with stapled [id number] ileocolic anastomosis perf 09/30/22 History of colonoscopy 2019 Status post cataract extraction of both eyes with insertion of intraocular lens (2014) History of hysterectomy History of bilateral mastectomy (04/2016) History of lumpectomy of right breast (11/2014) History of lumpectomy of left breast (07/2009) Family History Family History Father Family history of malignant neoplasm of brain Family history of diabetes mellitus in first degree relative Malignant neoplasm of prostate Diabetes mellitus Mother Hypertension Patient's mother is Sibling Hypertension Patient's sister is in good health Family history of diabetes mellitus in first degree relative Diabetes mellitus Family history of malignant neoplasm of urinary bladder Family history of chronic obstructive pulmonary disease Dementia Other Family history of allergic disorder Family history of cardiovascular disease Social History Social History Social History: The patient is and lives with her in [place]. She has no children. 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 Smoked 0.5 packs of cigarettes a day for many years and quit in early 2019. No alcohol or illicit substance abuse. She designates her or her sister, Phyllis Laguerre, as her surrogate decision makers. Code status: Full code. Smoking packs per day: 1 Smoking cigarettes per day: 20.0 Years smoked: 30 Smoking pack-years: 30.00 Smoking status: Never smoker Tobacco type: cigarettes Second hand tobacco smoke exposure: No Smoking end date: 04/04/19 Additional smoking assessment comments: STATES 1PK/DAY THEN DECREASED OVER 3 YRS TO FINALLY QUITTING Alcohol intake: never Drinks per week: 1 Substance use: never Substance use type: does not use Do You Feel Safe in your Home?: Yes Lack of Transportation: No Lack of Food: Never True Current Housing: I Have Housing Concerned About Future Housing: No Difficulty Paying Gas/Electric Bills: No Difficulty Paying for Meds: No Currently Unemployed: No Education: Bachelor's Degree Difficulty w/ Childcare or Family Care: No Living arrangements: with family Occupation/Education: retired Gender identity (if verbalized by the patient): Female Spiritual care concerns: No Exam Narrative: GENERAL: mildly Ill-appearing, no acute distress. EYES: conjunctivae clear ENT: Mucous membranes moist. Nasal congestion. TM pearly jo with normal light reflex bilaterally; no tragal tenderness. Oropharynx not erythematous without lesions. No drooling, no hoarseness, no trismus, uvula midline. No tripod positioning, hot potato voice, or soft palate swelling. NECK: Supple. No lymphadenopathy CHEST: Clear to auscultation, breath sounds equal. No respiratory distress, speaks in full sentences. HEART: Regular rate and rhythm. No murmur heard. SKIN: Warm, dry, no rash. NEURO: Alert and oriented x3. Course Course Emergency Course: Patient is aware of diagnosis, understands and agrees to treatment plan. Anticipatory guidance given. Patient agrees to follow-up as directed and is aware of reasons to seek care at the emergency department. Portions of this record may have been created with voice recognition software Level of Care: Express Care Visit Vital Signs Vital signs: Vital Signs Temperature 97.5 F L 03/16/24 09:40 Pulse Rate 87 03/16/24 09:40 Respiratory Rate 18 03/16/24 09:40 Blood Pressure 122/73 03/16/24 09:40 Pulse Oximetry 97 03/16/24 09:40 Oxygen Delivery Room Air 03/16/24 09:40 Temperature 97.5 F L 03/16/24 09:40 Pulse Rate 87 03/16/24 09:40 Respiratory Rate 18 03/16/24 09:40 Blood Pressure 122/73 03/16/24 09:40 Pulse Oximetry 97 03/16/24 09:40 Oxygen Delivery Room Air 03/16/24 09:40 MDM - URI/Sore Throat MDM Narrative Medical decision making narrative: Discussed physical exam findings and prescription. Advise supportive treatments. Patient is appropriate for outpatient treatment and follow-up. Differential Diagnosis Differential diagnosis: Likely upper respiratory infection, viral infection and pharyngitis Discharge Plan Discharge Clinical Impression: Upper respiratory infection Patient Disposition: Home, Self-Care Condition: Stable Instructions: Antibiotic Form, Sinusitis (ED) Additional Instructions: Take antibiotic as directed Recommendations: Flonase spray and Zyrtec (or Claritin/Rose) over the counter Cough syrup may cause drowsiness; avoid driving or take it at night time. Tylenol 1000mg every 8 hours as needed for pain Symptomatic treatment includes: rest, fluids, and increase humidity of the air at home. Follow up with your primary care provider in 1 week. Go to the ER for worsening symptoms or concerns. Patient Language: Burundian Prescriptions: New doxycycline hyclate 100 mg tablet 100 mg PO BID 7 Days Qty: 14 0RF No Action prednisone 20 mg tablet 40 mg PO DAILY 5 Days Qty: 10 0RF albuterol sulfate 90 mcg/actuation HFA aerosol inhaler 2 puff inhalation Q4-6H PRN (Reason: shortness of breath or wheezing) 30 Days Qty: 8.5 0RF cholecalciferol (vitamin D3) 25 mcg (1,000 unit) capsule 1,000 unit PO DAILY multivitamin Tablet 1 tablet PO DAILY lansoprazole 30 mg capsule,delayed release(DR/EC) 15 mg PO DAILY albuterol sulfate 90 mcg/actuation HFA aerosol inhaler 1 puff inhalation Q4H PRN (Reason: shortness of breath or wheezing) Qty: 8.5 0RF hydrocodone-acetaminophen 5-325 mg tablet 1 tablet PO Q6H PRN (Reason: pain) Qty: 25 0RF polyethylene glycol 3350 [Miralax] 17 gram powder in packet 8.5 g PO DAILY Qty: 100 0RF levocetirizine [Xyzal] 5 mg tablet 5 mg PO TID triamcinolone acetonide 0.1 % cream 1 applic topical DAILY PRN (Reason: Rash) Caltrate 600 plus D 600 mg (1,500 mg)-800 unit Tablet,Chewable 1 tablet PO DAILY aspirin [Children's Aspirin] 81 mg Tablet,Chewable 81 mg PO DAILY@0800 Qty: 3 0RF hydroxyzine HCl 25 mg tablet 25 mg PO TID PRN (Reason: itching) Qty: 30 0RF atorvastatin 10 mg tablet 10 mg PO DAILY Qty: 90 1RF amlodipine 10 mg tablet 10 mg PO DAILY Qty: 90 1RF Rx Instructions: DUE FOR APPOINTMENT IN FEBRUARY ropinirole 0.5 mg tablet 0.5 mg PO QHS Qty: 90 0RF Rx Instructions: DUE FOR APPOINTMENT IN FEBRUARY eszopiclone [Lunesta] 3 mg tablet 3 mg PO QHS Qty: 30 1RF escitalopram oxalate [Lexapro] 5 mg tablet 5 mg PO DAILY Qty: 90 1RF lisinopril 20 mg tablet 20 mg PO DAILY Qty: 90 0RF Follow-up/Referrals: Alexx Gamble DO [Primary Care Provider] - Time of Disposition: 10:14
== END 2024-03-16 10:20 | disposition home or self-care (01) ==
PROVIDERS: Emergency Provider Nurse Practitioner Family; PCP Internal Medicine
DX: J06.9 Acute upper respiratory infection, unspecified (principal); Z87.891 Personal history of nicotine dependence; K21.9 Gastro-esophageal reflux disease without esophagitis; J44.9 Chronic obstructive pulmonary disease, unspecified; E78.5 Hyperlipidemia, unspecified; I10 Essential (primary) hypertension; M85.80 Other specified disorders of bone density and structure, unspecified site; M19.90 Unspecified osteoarthritis, unspecified site; Z98.42 Cataract extraction status, left eye; Z98.41 Cataract extraction status, right eye; Z96.1 Presence of intraocular lens; Z85.3 Personal history of malignant neoplasm of breast; Z90.13 Acquired absence of bilateral breasts and nipples
CPT/HCPCS: 99213; G0463

== ENCOUNTER 2024-03-22 10:48 | Outpatient (CLI) | payer MEDICARE, SELFPAY ==
--- NOTE | ~2024-03-22 | XR_ITS ---
Clinical Indication: Cough PA and lateral views of the chest: Comparison: 04/14/2023 Findings: The lungs are clear, without evidence of focal consolidation or pleural effusion. Cardiome diastinal silhouette is within normal limits. Bones and soft tissues are unremarkable. Impression: Clear lungs. Possible COPD. Reviewed, dictated and finalized at location . TH PHYSICS TECHNICIAN Impression: Clear lungs. Possible COPD.
== END 2024-03-22 10:49 | disposition home or self-care (01) ==
LOC: GOSHIMG 10:50
PROVIDERS: PCP Clinical Nurse Specialist; Visit Provider Clinical Nurse Specialist
DX: R05.9 Cough, unspecified (principal)
CPT/HCPCS: 71046

== ENCOUNTER 2024-05-25 10:37 | Outpatient (CLI) | payer MEDICARE, SELFPAY ==
--- NOTE | ~2024-05-25 | XR_ITS ---
Left Knee Technique: AP, lateral, and sunrise views were obtained. Clinical History: Pain Findings: No fracture or dislocation is seen. Osseous alignment is anatomic. Joint spaces are preserv ed without degenerative or erosive change. Soft tissues are unremarkable. No joint effusion is seen. Impression: Unremarkable left knee radiographs. Reviewed, dictated and finalized at location . LE WICKER Impression: Unremarkable left knee radiographs.
== END 2024-05-25 10:38 | disposition home or self-care (01) ==
PROVIDERS: PCP Clinical Nurse Specialist; Visit Provider Clinical Nurse Specialist
DX: M25.562 Pain in left knee (principal)
CPT/HCPCS: 73562

== ENCOUNTER 2024-05-29 12:41 | Outpatient (CLI) | payer MEDICARE, SELFPAY ==
--- OUTSIDE RECORDS SUMMARY | 2024-05-29 14:18 | XMS_ITS | Clinical Summary ---
Author Organization [facility] Address [address] [place] [address] Care Team Providers Care Salvage Supervisor Name Role Phone Unavailable Primary Care Provider Unavailabl e Social History Tobacco Use Types Packs/Day Years Used Date Smoking Tobacco: Never Assessed Comments Unknown Sex and Gender Information Value Date Recorded Sex Assigned at Not on file Legal Sex Female 8:08 PM CDT Gender Identity Not on file Sexual Orientation Not on file Plan of Treatment Health Maintenance Due Date Last Done Comments Hepatitis C 1963 DTaP, Tdap and Td Vaccines ( 1 - Tdap) 02/27/1964 Zoster Vaccines (1 of 2) 1995 Annual Medicare Wellness Visit 2010 Dexa Scan (General) 2010 Pneumococcal Vaccine: 65+ Ye ars (1 of 1 - PCV) 2010 RSV Immunization or 60+ Years (1 - 1-dose 75+ series) 02/27/2020 COVID-19 Vaccine ( - 2023-2 5 season) 2023 Influenza Adult (#1) 2024 Meningococcal B Vaccine Aged Out No l onger eligible based on patient's age to complete this topic Meningococcal Vaccine Aged Out No luana jia eligible based on patient's age to complete this topic RSV Immunizations Under 20 Months Aged Out No longer eligible based on patient's age to complete this topic Insurance MEDICARE
--- OUTSIDE RECORDS SUMMARY | 2024-05-29 14:18 | XMS_ITS | Clinical Summary ---
Author Organization [facility] Address [address] [place] [address] Care Team Providers Care Hydroelectric Powerplant Supervisor Name Role Phone Armand Bautista MD Unavailable Unavailable Hortensia Weiss MD Primary Care Provider + Source Comments [facility],non-owned Affiliates and Associated Physician Practices is amultiple site organization consisting of ambulatory clinics and hospital sitesin [place], [place], [place] and [place]. This disclosure is being madepursuant to the Care Everywhere program and may not contain all information available regarding this patient. Last updated 17.[facility] Allergies Active Allergy Reactions Criticality Noted Date Comments Penicillins Rash Low 07/03/2012 Sulfa Drugs Rash Low 07/03/2012 Medications * Be aware that medications may not be up to date on this document. Alwaysverify current medications with the patient. Medication Sig Dispensed Refills Start Date End Date Status raloxifene (EVISTA) 60 MG tablet Take 60 mg by mouth once daily. Active quinapril (ACCUPRIL) 40 MG tablet Take 40 mg by mouth once daily. Active lansoprazole, disintegrating, (PREVACID SOLUTAB) 30 MG tablet Take 30 mg by mouth daily before breakfast. Active Cholecalciferol (VITAMIN D-3 PO) Take by mouth. Acti ve Multiple Vitamins-Minerals (THERAGRAN-M PO) Take by mouth. Acti ve Ferrous Sulfate 27 MG TABS Take by mouth. Active Aspirin (SB LOW DOSE ASA EC) 81 MG TBEC Take by mouth. Active acetaminophen (TYLENOL) 500 MG tabletIndications:H and pain,Neck pain Take 2 Tabs by mouth 3 times daily. Maximum allowable Acetaminophen amount = 4 Grams (4000 mg) / 24 hours. 07/03/2012 Active meloxicam (MOBIC) 7.5 MG tabletIndications:N ba pain Take 1 Tab by mouth once daily. for 7 days to treat flare ups of pain and inflammation Repeat as needed or call Dr Bautista if not better 30 Tab 6 07/03/2012 Active Active Problems Problem Noted Date Diagnosed Date Hand pain 07/03/2012 Neck pain 07/03/2012 Vertigo 07/03/2012 Family History Medical History Relation Name Comments COPD - Chronic Obstructive Pulmonary Disease Brother 2 Relation Name Status Comments Brother 1 Alive Brother 2 Father Mother Sister Alive Social History Tobacco Use Types Packs/Day Years Used Date Smoking Tobacco: Every Day Smokeless Tobacco: Never Alcohol Use Standard Drinks/Week Comments Yes 0 (1 standard drink = 0.6 oz pur e alcohol) rarely Sex and Gender Information Value Date Recorded Sex Assigned at Not on file Gender Identity Not on file Sexual Orientation Not on file Last Filed Vital Signs Vital Sign Reading Time Taken Comments Blood Pressure 118/76 01/22/2013 11:24 AM CDT Pulse 70 01/22/2013 11:24 AM CDT Temperature - - Respiratory Rate - - Oxygen Saturation - - Inhaled Oxygen Concentration - - Weight 81.6 kg (180 lb) 01/22/2013 11:24 AM CDT Height 175.3 cm (5' 9 ) 01/22/2013 11:24 AM CDT Body Mass Index 26.58 01/22/2013 11:24 AM CDT Plan of Treatment Health Maintenance Due Date Last Done Comments BONE DENSITY TESTING 1945 MEDICARE AWV 12 MONTHS 1945 DTAP/TDAP/TD VACCINES (1 - Tdap) 02/27/1964 PNEUMOCOCCAL VACCINE 50+ (1 of 2 - PCV) 02/27/1964 ZOSTER VACCINE (1 of 2) 1995 Respiratory Syncytial Virus (RSV) Vaccine Pt: or over 60 yrs (1 - 1-dose 75+ series) 02/27/2020 COVID-19 VACCINE ( - 2023-2 5 season) 2023 INFLUENZA VACCINE (#1) 2023 DEPRESSION SCREENING 04/04/2024 HEPATITIS B VACCINE Aged Out No longe r eligible based on patient's age to complete this topic HIB VACCINE Aged Out No longer eligi ble based on patient's age to complete this topic HPV VACCINE Aged Out No longer eligi ble based on patient's age to complete this topic MENINGOCOCCAL (Group B) VACCINE Aged Out No longer eligible based on patient's age to complete this topic MENINGOCOCCAL VACCINE Aged Out No luana jia eligible based on patient's age to complete this topic Care Teams Hydroelectric Powerplant Supervisor Relationship Specialty Start Date End Date Hortensia Weiss MD [address] [place] [address] PCP - General Family Medicine 01/22/13 Armand Bautista MD Rheumatology 06/30/12
--- OUTSIDE RECORDS SUMMARY | 2024-05-29 14:18 | XMS_ITS | Clinical Summary ---
Author Organization [facility] Medical Office Building A Address [address] [place] [address] Care Team Providers Care Zone Manager Name Role Phone Alexx Gamble DO Primary Care Provider +1- [phone] Juan Diego Rodriguez MD Unavailable Allergies Active Allergy Reactions Criticality Noted Date Comments Adhesive Tape-Silicones Itching,Rash Medium 01/01/2013 Other Itching,Rash Medium 12/13/2022 Following mastectomy, they used surgical glue pt had significant itching, rash With recent abd surgery they used astrid Penicillins Rash Medium 01/01/2013 Sulfa (Sulfonamide Antibiotics) Rash Medium 07/03/2012 Medications lansoprazole (PREVACID SOLUTAB) 30 mg disintegrating tablet Take 1 tablet (30 mg total) by mouth daily before breakfast Active Linzess 72 mcg capsule Take 1 capsule (72 mcg total) by mouth as needed 10/19/19 23 Active aspirin 81 mg enteric coated tablet Take 1 tablet (81 mg total) by mouth nightly Active amLODIPine (NORVASC) 10 mg tablet Take 1 tablet (10 mg total) by mouth nightly 09/29/19 23 Active atorvastatin (LIPITOR) 10 mg tablet Take 1 tablet (10 mg total) by mouth daily Active lisinopriL (PRINIVIL,ZESTRIL) 40 mg tablet Take 0.5 tablets (20 mg total) by mouth nightly 09/25/19 23 Active ibuprofen (ADVIL,MOTRIN) 400 mg tablet Take 1 tablet (400 mg total) by mouth every 6 (six) hours as needed for pain Active doxylamine (UNISOM) 25 mg tablet Take 1 tablet (25 mg total) by mouth nightly as needed for sleep Active acidophilus-pectin , citrus 100 million cell-10 mg capsule Take 1 tablet by mouth daily Active cholecalciferol 25 mcg (1,000 unit) tablet Take 1 tablet (1,000 Units total) by mouth daily Active mv,Ca,acf-bdsr-HH- lycopene 8 mg iron- 200 mcg-600 mcg tablet Take 1 tablet by mouth nightly Active calcium carbonate-vit D3-min 600 mg calcium- 400 unit tablet Take 1 tablet by mouth nightly Active escitalopram (LEXAPRO) 5 mg tablet Take 1 tablet (5 mg total) by mouth daily Active eszopiclone (LUNESTA) 2 mg tabletIndications: Insomnia Take 1 tablet (2 mg total) by mouth nightly Take immediately before bedtime Active polyethylene glycol (MIRALAX) 17 gram packetIndications: constipation Take 1 packet (17 g total) by mouth daily Active psyllium husk (KONSYL) 6 gram packet Take by mouth Active levocetirizine (XYZAL) 5 mg tablet Take 1 tablet (5 mg total) by mouth every evening Active rOPINIRole (REQUIP) 0.25 mg tablet Take 1 tablet (0.25 mg total) by mouth 3 (three) times a day Active HYDROcodone-acetam inophen (NORCO) 5-325 mg per tabletIndications: Pain Take 1 tablet by mouth every 6 (six) hours as needed Active hydrOXYzine (VISTARIL) 25 mg/mL injection Inject into the muscle as instructed Active triamcinolone acetonide 0.025 % lotion Apply topically Acti ve Active Problems Problem Noted Date Diagnosed Date AAA (abdominal aortic aneurysm) without rupture 12/23/2022 Assessment & Plan (07/29/2023 11:00 AM CDT): Status post endovascular abdominal aortic aneurism repair, the saccular aneurysm on the iliac artery is no longer visible. 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 We will need continued surveillance with repeat CTA abdomen pelvis in 6 months. Preop cardiovascular exam 12/07/2022 Iliac aneurysm (CMS/HCC) 12/03/2022 Assessment & Plan (12/03/2022 10:03 AM CDT): 1.7 cm saccular aneurysms, discussed recommendation for repair of all saccular aneurysms regardless of size. Discussed repairing this and her AAA. She wished to proceed as above. Abdominal aortic aneurysm (AAA) without rupture 11/03/2022 Assessment & Plan (01/14/2023 7:52 AM CDT): Status post EVAR. Baseline CT abdomen pelvis ordered. We will plan for repeat CT and evaluation in 6 months. Assessment & Plan (12/03/2022 10:03 AM CDT): 4.5 cm infrarenal abdominal aortic aneurysms, given she also has a saccular iliac aneurysms I have recommended repair of both, she appears to be an endovascular candidate. Risks benefits and alternatives to endovascular abdominal aortic aneurysms repair discussed, risks including bleeding, infection, perforation, contrast induced nephropathy, dissection, thrombosis, distal embolization, renal failure, mesenteric ischemia, ischemia to the legs and pelvis, stroke, [place] and . She wished to proceed. Assessment & Plan (11/03/2022 2:09 PM CDT): 4.9 cm AAA found on aortoiliac duplex at [facility]. Discussed recommendation surgical intervention at 5 cm. CTA abdomen pelvis ordered for further evaluation. Lower extremity arterial duplex ordered to rule out popliteal artery aneurysms. Continue risk factor modification with ASA statin therapy. Will follow-up in the office in 2-3 weeks. Primary hypertension 11/03/2022 Assessment & Plan (07/29/2023 11:00 AM CDT): Stable continue amlodipine 10 mg. Assessment & Plan (12/03/2022 10:03 AM CDT): Stable continue amlodipine 10 mg. Assessment & Plan (11/03/2022 2:08 PM CDT): Stable continue amlodipine 10 mg. Mixed hyperlipidemia 11/03/2022 Assessment & Plan (07/29/2023 11:00 AM CDT): Stable Lipitor 10 mg. Assessment & Plan (12/03/2022 10:03 AM CDT): Stable continue Lipitor 10 mg. Assessment & Plan (11/03/2022 2:07 PM CDT): Stable continue Lipitor 10 mg. Epidermal inclusion cyst 04/20/2018 Compound nevus 04/13/2018 Assessment & Plan (04/20/2018 2:06 PM VOICE INSTRUCTOR): 1 week s/p biopsy Reports an allergic reaction the the tape we used on her nose but this has since cleared up. No report of signs of infection. Healing well, no complications or signs of infection noted on exam. Wound care administered, instructions given both verbally and in written form Will return as needed Assessment & Plan (04/13/2018 2:26 PM VOICE INSTRUCTOR): Locations: left cheek just superior to nasolabial sulcus, nasal tip Biopsies today per procedure notes Wound care administered, instructions given both verbally and in written form Return in one week for wound evaluation and pathology results At risk for cancer 10/06/2016 Hand pain 07/03/2012 Neck pain 07/03/2012 Vertigo 07/03/2012 Surgical History Surgery Date Site/Laterality Comments MASTECTOMY 04/08/2016 Bilateral BREAST LUMPECTOMY OTHER SURGICAL HISTORY removal of non cancerous tumor on neck COLECTOMY 10/01/2022 Medical History Medical History Date Comments Breast cancer (HCC) Anemia Hypertension Hyperlipidemia GERD (gastroesophageal reflux disease) History of shingles 2020 Aneurysm (CMS/HCC) (HCC) Diverticulosis Colitis Anemia Insomnia Family History Medical History Relation Name Comments Cancer Father Diabetes Father Heart disease Mother Diabetes Sister Relation Name Status Comments Father Mother Sister Social History Tobacco Use Types Packs/Day Years Used Date Smoking Tobacco: Former Cigarettes Q uit: 2020 Smokeless Tobacco: Never Tobacco Cessation:Counseling Given: Not Answered Alcohol Use Standard Drinks/Week Comments No 0 (1 standard drink = 0.6 oz pur e alcohol) Social Connection and Isolat ion Panel [NHANES] Answer Date Recorded In a typical week, how many times do you talk on the phone with family, friends, or neighbors? More than three times a week 12/24/2022 How often do you get togethe r with friends or relatives? More than three times a week 12/24/2022 How often do you attend chur ch or advent services? More than 4 times per year 12/24/2022 Do you belong to any clubs o r organizations such as baptist groups, unions, fraternal or athletic groups, or school groups? No 12/24/2022 How often do you attend meet ings of the clubs or organizations you belong to? Never 12/24/2022 Are you , , di vorced, , never , or living with a partner? 12/24/2022 AUDIT-C Answer Date Recorded Q1: How often do you have a drink containing alc ohol? Monthly or less 12/13/2022 Q2: How many drinks containi ng alcohol do you have on a typical day when you are drinking? 1 or 2 12/13/2022 Q3: How often do you have si x or more drinks on one occasion? Never 12/13/2022 Overall Financial Resource Strain (CARDIA) Answe r Date Recorded How hard is it for you to pa y for the very basics like food, housing, medical care, and heating? Not hard at all 12/24/2022 Hunger Vital Sign Answer Date Recorded Within the past 12 months, y ou worried that your food would run out before you got the money to buy more. Never true 12/25/19 23 Within the past 12 months, t he food you bought just didn't last and you didn't have money to get more. Never true 12/24/2022 PRAPARE - Transportation Answer Date Re corded In the past 12 months, has l ack of transportation kept you from medical appointments or from getting medications? No 12/04 In the past 12 months, has l ack of transportation kept you from meetings, work, or from getting things needed for daily living? No 12/24/2022 Housing Stability Vital Sign Answer [place] e Recorded In the last 12 months, was t here a time when you were not able to pay the mortgage or rent on time? No 12/24/2022 In the last 12 months, how many places have you lived? 1 12/24/2022 In the last 12 months, was t here a time when you did not have a steady place to sleep or slept in a half-way (including now)? No 12/24/2022 Personal Safety Answer Date Recorded Getting School Help Needed Not on file 01/03 Comments No Sex and Gender Information Value Date Recorded Sex Assigned at Not on file Legal Sex Female 11:41 AM VOICE INSTRUCTOR Gender Identity Not on file Sexual Orientation Not on file Obstetrics History Last Filed Vital Signs Vital Sign Reading Time Taken Comments Blood Pressure 123/78 02/01/2024 9:34 AM CDT Pulse 77 02/01/2024 9:34 AM CDT Temperature 36.6 C (97.9 F) 12/24/2022 7:49 AM CDT Respiratory Rate 20 12/24/2022 7:49 AM CDT Oxygen Saturation 96% 02/01/2024 9:34 AM CDT Inhaled Oxygen Concentration - - Weight 77.1 kg (170 lb) 02/01/2024 9:34 AM CDT Height 172.7 cm (5' 8 ) 02/01/2024 9:34 AM CDT Body Mass Index 25.85 02/01/2024 9:34 AM CDT Plan of Treatment Health Maintenance Due Date Last Done Comments Depression Screening 1945 Hepatitis C Screening 1945 Osteoporosis Screening-Bone Density Scan 1945 DTaP/Tdap/Td Vaccine (1 - Tdap) 02/27/1956 Hepatitis B Screening 1963 Well Visit 65+ 2010 Pneumococcal vaccine 65+ (2 of 2 - PCV) 01/22/2015 01/22/2014, 02/01/2013 Zoster Vaccine (2 of 3) 12/01/2016 10/07/19 17, 10/28/2015, 07/29/2015, Additional history exists Influenza Vaccine (#1) 2023 0, 02/15/2019, 01/01/2018, Additional history exists Fall Risk Assessment 12/25/2023 12/24/2022 Medical Devices Implanted Type Area Administrator Pesticide Device Identifier Shelf Expiration Date Model / Serial / Lot Treo Abdominal Stent-Graft System Implanted:Qty: 1 on 12/23/2022 by Barrett Miranda MD at [facility] [id number] 08/25/2025 28-B2-33- 080U / / [id number] [employer] Device Clsr Perclose Prostyle Sut-Mediatd Closure-Repair Sys [id number] - [id number] Implanted:Qty: 4 on 12/23/2022 by Barrett Miranda MD at [facility] [employer] 10/01/2024 [id number] / / [id number] [employer] Stent Graft Iliac Leg Extension [id number] Treo Polyester Nitinol 41-G0-14-140u - [id number] Implanted:Qty: 1 on 12/23/2022 by Barrett Miranda MD at [facility] Left: Common Iliac Artery [employer] [id number] 11/03/2025 28-L2-17- 140U / / [id number] [employer] Stent Graft Iliac Leg Extension 15/[id number] Treo Polyester Nitinol 67-B8-77-100u - [id number] Implanted:Qty: 1 on 12/23/2022 by Barrett Miranda MD at [facility] Right: Common Iliac Artery [employer] 09/15/2025 28-L2-17- 100U / / [id number] Insurance MEDICARE [facility] MEDICARE [facility] MEDICARE [facility] Advance Directives For more information, please contact: [phone] Documents on File Type Date Recorded Patient Television Repairer Expl anation ADVANCE DIRECTIVE 12/13/2022 1:54 PM Power of Assistant Restaurant General Manager-Medical * Full Code (Latest Code Status on File) Date Activated Date Inactivated Comments 12/23/2022 11:46 AM 12/24/2022 3:39 PM Care Teams Zone Manager Relationship Specialty Start Date End Date Alexx Gamble DO PCP - General Internal Medicine 04/07/18 Juan Diego Rodriguez MD Consulting Physician Cardiovascular Disease 12/13/22
--- OUTSIDE RECORDS SUMMARY | 2024-05-29 14:18 | XMS_ITS | Patient Health Summary ---
Author Organization [facility] Address [address] [place] [address] Care Team Providers Care Corporate Travel Manager Name Role Phone Armand Bautista MD Unavailable Unavailable Hortensia Weiss MD Primary Care Provider + Note from [facility],non-owned Affiliates and Associated Physician Practices is amultiple site organization consisting of ambulatory clinics and hospital sitesin [place], [place], [place] and [place]. This disclosure is being madepursuant to the Care Everywhere program and may not contain all information available regarding this patient. Last updated 17.[employer] [facility] [employer] Allergies * Penicillins(Rash) -Low Criticality * Sulfa Drugs(Rash) -Low Criticality Medications * Be aware that medications may not be up to date on this document. Alwaysverify current medications with the patient. * raloxifene (EVISTA) 60 MG tablet Take 60 mg by mouth once daily. * quinapril (ACCUPRIL) 40 MG tablet Take 40 mg by mouth once daily. * lansoprazole, disintegrating, (PREVACID SOLUTAB) 30 MG tablet Take 30 mg by mouth daily before breakfast. * Cholecalciferol (VITAMIN D-3 PO) Take by mouth. * Multiple Vitamins-Minerals (THERAGRAN-M PO) Take by mouth. * Ferrous Sulfate 27 MG TABS Take by mouth. * Aspirin (SB LOW DOSE ASA EC) 81 MG TBEC Take by mouth. * acetaminophen (TYLENOL) 500 MG tablet(Started 07/03/2012) Take 2 Tabs by mouth 3 times daily. Maximum allowable Acetaminophen amount = 4 Grams (4000 mg) / 24hours. * meloxicam (MOBIC) 7.5 MG tablet(Started 07/03/2012) Take 1 Tab by mouth once daily. for 7 days to treat flare ups of pain and inflammation Repeat as needed or call Dr Bautista if not better 6 refills left Active Problems Problem Noted Date Diagnosed Date Hand pain 07/03/2012 Neck pain 07/03/2012 Vertigo 07/03/2012 Social History Tobacco Use Types Packs/Day Years [...] Mass Index 26.58 01/22/2013 11:24 AM CDT Procedures * XR HAND BILAT 1VW(Performed 07/03/2012) Performed for Hand pain * XR CERVICAL SPINE 2 OR 3VW(Performed 07/03/2012) Performed for Neck pain * PATHOLOGY/CYTOLOGY REPORT ORDER(Performed 05/25/2012) * PATHOLOGY/CYTOLOGY REPORT ORDER(Performed 05/21/2012) Results * XR HANDS BILAT SINGLE VIEW (07/03/2012 3:09 PM CDT) Anatomical Region Laterality Modality Wrist / Hand, Upper Extremity Ot her Narrative 07/03/2012 3:09 PM CDT Armand Bautista MD 07/03/2012 3:09 PM DJD 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 PIP and mild multiple DIP Small erosions noted at DIPs Procedure Note Armand Bautista MD - 07/03/2012 3:09 PM CDT DJD 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 PIP and mild multiple DIP Small erosions noted atDIPs Armand Bautista MD DIAGNOSTIC IMAGING O RDERABLES * XR CERVICAL SPINE 2 OR 3 VW (07/03/2012 3:09 PM CDT) Anatomical Region Laterality Modality Spine Other Narrative 07/03/2012 3:09 PM CDT Armand Bautista MD 07/03/2012 3:09 PM Mild DJD C45 right facet Mild anterolisthesis C34 MILD DJD C45 C56 disc Procedure Note Armand Bautista MD - 07/03/2012 3:08 PM CDT Mild DJD C45 right facet Mild anterolisthesis C34 MILD DJD C45 C56 disc Armand Bautista MD DIAGNOSTIC IMAGING O RDERABLES * PATHOLOGY/CYTOLOGY REPORT ORDER (05/25/2012) Only the most recent of2 resultswithin the time period is included. Armand Bautista MD LAB - PATHOLOGY/CYTO LOGY ORDERABLES Care Teams Corporate Travel Manager Relationship Specialty Start Date End Date Hortensia Weiss MD [address] [place] [address] PCP - General Family Medicine 01/22/13 Armand Bautista MD Rheumatology 06/30/12
--- OUTSIDE RECORDS SUMMARY | 2024-05-29 14:18 | XMS_ITS | Referral Summary ---
Author Organization [facility] Address [address] [place] [address] Care Team Providers Care Lime Boiler Name Role Phone Armand Bautista MD Unavailable Unavailable Hortensia Weiss MD Primary Care Provider + Source Comments [facility],non-owned Affiliates and Associated Physician Practices is amultiple site organization consisting of ambulatory clinics and hospital sitesin [place], [place], [place] and [place]. This disclosure is being madepursuant to the Care Everywhere program and may not contain all information available regarding this patient. Last updated 17.[facility] Allergies Active Allergy Reactions Criticality Noted Date [...] 07/03/2012 Active meloxicam (MOBIC) 7.5 MG tabletIndications:N ab pain Take 1 Tab by mouth once [...] 01/22/2013 11:24 AM CDT Plan of Treatment Not on file Care Teams Lime Boiler Relationship Specialty Start Date End Date Hortensia Weiss MD [address] [place] [address] PCP - General Family Medicine 01/22/13 Armand Bautista MD Rheumatology 06/30/12
--- OUTSIDE RECORDS SUMMARY | 2024-05-29 14:18 | XMS_ITS | Referral Summary ---
Author Organization [facility] Medical Office Building A Address [address] [place] [address] Care Team Providers Care Locomotive Engineer Electric Name Role Phone Alexx Gamble DO Primary Care Provider +1- [phone] Juan Diego Rodriguez MD Unavailable Allergies Active [...] (1,000 Units total) by mouth daily Active mv,Ca,tcw-snpw-EW- lycopene 8 mg iron- 200 mcg-600 mcg [...] ischemia to the legs and pelvis, stroke, [place] and . She wished to proceed. Assessment & Plan (11/03/2022 2:09 PM CDT): 4.9 cm AAA found on aortoiliac duplex at [facility]. Discussed recommendation surgical intervention at 5 [...] 04/13/2018 Assessment & Plan (04/20/2018 2:06 PM TELEGRAPHIC INSTRUMENT SUPERVISOR): 1 week s/p biopsy Reports an allergic reaction the the tape we used on her nose but this has since cleared up. No report of signs of infection. Healing well, no complications or signs of infection noted on exam. Wound care administered, instructions given both verbally and in written form Will return as needed Assessment & Plan (04/13/2018 2:26 PM TELEGRAPHIC INSTRUMENT SUPERVISOR): Locations: left cheek just superior to nasolabial [...] 12/24/2022 How often do you attend chur or church services? More than 4 times per year 12/24/2022 Do you belong to any clubs o r organizations such as anglican groups, unions, fraternal or athletic groups, or [...] place to sleep or slept in a fdc (including now)? No 12/24/2022 Personal Safety Answer Date Recorded Getting School Help Needed Not on file 01/03 Comments No Sex and Gender Information Value Date Recorded Sex Assigned at Not on file Legal Sex Female 11:41 AM TELEGRAPHIC INSTRUMENT SUPERVISOR Gender Identity Not on file Sexual Orientation [...] 02/01/2024 9:34 AM CDT Plan of Treatment Not on file Medical Devices Implanted Type Area Certified Juvenile Probation Officer Device Identifier Shelf Expiration Date Model / Serial / Lot Treo Abdominal Stent-Graft System Implanted:Qty: 1 on 12/23/2022 by Barrett Miranda MD at [facility] [id number] 08/25/2025 28-B2-33- 080U / / [id number] [employer] Device Clsr Perclose Prostyle Sut-Mediatd Closure-Repair Sys 02726-21 - [id number] Implanted:Qty: 4 on 12/23/2022 by Barrett Miranda MD at [facility] [employer] 10/01/2024 [id number] / / [id number] [employer] Stent Graft Iliac Leg Extension [id number] Treo Polyester Nitinol 48-A4-81-140u - [id number] Implanted:Qty: 1 on 12/23/2022 by Barrett Miranda MD at [facility] Left: Common Iliac Artery [employer] [id number] 11/03/2025 28-L2-17- 140U / / [id number] [employer] Stent Graft Iliac Leg Extension 15/[id number] Treo Polyester Nitinol 66-U3-78-100u - [id number] Implanted:Qty: 1 on 12/23/2022 by Barrett Miranda MD at [facility] Right: Common Iliac Artery [employer] 09/15/2025 28-L2-17- 100U / / [id number] Insurance MEDICARE [facility] MEDICARE [facility] MEDICARE [facility] Advance Directives For more information, please contact: [phone] Documents on File Type Date Recorded Patient Social Security Assessor Expl anation ADVANCE DIRECTIVE 12/13/2022 1:54 PM Power of Contract Coordinator-Medical * Full Code (Latest Code Status on File) Date Activated Date Inactivated Comments 12/23/2022 11:46 AM 12/24/2022 3:39 PM Care Teams Locomotive Engineer Electric Relationship Specialty Start Date End Date Alexx Gamble DO PCP - General Internal Medicine 04/07/18 Juan Diego Rodriguez MD [phone] (work) Consulting Physician Cardiovascular Disease 12/13/22
[2024-05-29 19:22] LABS: Immature Reticulocyte Fraction 13.9 % (3.0-15.9); Reticulocyte Hemoglobin Conten 34.3 pg (28.2-36.6); Reticulocyte Percent 1.21 % (0.7-4.3); Reticulocytes Absolute 0.04 10^6/uL (0.02-0.10)
== END 2024-05-29 12:42 | disposition home or self-care (01) ==
LOC: ANHGOSHLAB 12:43
PROVIDERS: PCP Clinical Nurse Specialist; Visit Provider Clinical Nurse Specialist
DX: D64.9 Anemia, unspecified (principal)
CPT/HCPCS: 36415; 85046

== ENCOUNTER 2024-06-04 12:41 | Outpatient (CLI) | payer MEDICARE, SELFPAY | END 2024-06-04 12:42 | disposition home or self-care (01) | LOC: GOSHIMG 12:41 | PROVIDERS: PCP Clinical Nurse Specialist; Visit Provider Clinical Nurse Specialist | DX: S83.232A Complex tear of medial meniscus, current injury, left knee, initial encounter (principal); X58.XXXA Exposure to other specified factors, initial encounter; M17.12 Unilateral primary osteoarthritis, left knee; M94.262 Chondromalacia, left knee; M71.22 Synovial cyst of popliteal space [Baker], left knee | CPT/HCPCS: 73721 ==

== ENCOUNTER 2024-06-20 13:44 | Outpatient (CLI) | payer MEDICARE, SELFPAY ==
--- NOTE | ~2024-06-20 | US_ITS ---
US renal BI 06/20/2024 14:12 Procedure: Realtime transabdominal ultrasound of the kidneys and bladder. Indication: Abnormal renal function tests Comparison: No prior studies for comparison. Findings: Renal echotexture is normal bilaterally without hydronephrosis, contour deforming mass or r enal calculus. The right kidney measures 7.9 cm and left kidney measures 9.7 cm. Bladder within norm al limits. Impression: 1: Unremarkable renal ultrasound. No stones, masses or hydronephrosis. Reviewed, dictated and finalized at location B. Impression: 1: Unremarkable renal ultrasound. No stones, masses or hydronephrosis.
== END 2024-06-20 13:45 | disposition home or self-care (01) ==
LOC: GOSHIMG 13:45
PROVIDERS: PCP Internal Medicine; Visit Provider Internal Medicine Nephrology
DX: R94.4 Abnormal results of kidney function studies (principal)
CPT/HCPCS: 76775

== ENCOUNTER 2024-06-25 08:04 | Outpatient (CLI) | payer MEDICARE, SELFPAY ==
--- OUTSIDE RECORDS SUMMARY | 2024-06-25 08:17 | XMS_ITS | Referral Summary ---
Author Organization [facility] Medical Office Building A Address [address] [place] [address] Care Team Providers Care Filter Tender Jelly Name Role Phone Alexx Gamble DO Primary Care Provider +1- [phone] Juan Diego Rodriguez MD Unavailable Encounters Date Type Department Care Team Description 05/30/2024 Orders Only [facility] Vascular and Vein Surgery [address] [place] [address] [place] [phone] Barrett Miranda MD 05/30/2024 Orders Only [facility] Vascular and Vein Surgery [address] [place] [phone] Barrett Miranda MD Infrarenal abdominal aortic aneurysm (AAA) without rupture (Primary Dx) 05/30/2024 Orders Only [facility] Vein [facility] [address] [place] [phone] Barrett Miranda MD Infrarenal abdominal aortic aneurysm (AAA) without rupture (Primary Dx) from Last 3 Months Allergies Active Allergy Reactions Criticality Noted Date [...] mcg total) by mouth as needed 10/19/19 Active aspirin 81 mg enteric coated tablet Take 1 tablet (81 mg total) by mouth nightly Active amLODIPine (NORVASC) 10 mg tablet Take 1 tablet (10 mg total) by mouth nightly 09/29/19 Active atorvastatin (LIPITOR) 10 mg tablet Take 1 tablet (10 mg total) by mouth daily Active lisinopriL (PRINIVIL,ZESTRIL) 40 mg tablet Take 0.5 tablets (20 mg total) by mouth nightly 09/25/19 Active ibuprofen (ADVIL,MOTRIN) 400 mg tablet Take [...] (1,000 Units total) by mouth daily Active mv,Ca,jnp-qykf-ZT- lycopene 8 mg iron- 200 mcg-600 mcg [...] months. 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 She wished to proceed. Assessment & Plan (11/03/2022 2:09 PM CDT): 4.9 cm AAA found on aortoiliac duplex at [facility]. Discussed recommendation surgical intervention at 5 [...] 04/13/2018 Assessment & Plan (04/20/2018 2:06 PM AGENCY SALES DIRECTOR): 1 week s/p biopsy Reports an allergic reaction the the tape we used on her nose but this has since cleared up. No report of signs of infection. Healing well, no complications or signs of infection noted on exam. Wound care administered, instructions given both verbally and in written form Will return as needed Assessment & Plan (04/13/2018 2:26 PM AGENCY SALES DIRECTOR): Locations: left cheek just superior to nasolabial [...] often do you attend chur ch or oriental orthodox services? More than 4 times per year 12/24/2022 Do you belong to any clubs o r organizations such as faith groups, unions, fraternal or athletic groups, or [...] place to sleep or slept in a fpc (including now)? No 12/24/2022 Personal Safety Answer Date Recorded Getting School Help Needed Not on file 01/03 Comments No Sex and Gender Information Value Date Recorded Sex Assigned at Not on file Legal Sex Female 11:41 AM AGENCY SALES DIRECTOR Gender Identity Not on file Sexual Orientation [...] on file Medical Devices Implanted Type Area Cook Restaurant Device Identifier Shelf Expiration Date Model / Serial / Lot Treo Abdominal Stent-Graft System Implanted:Qty: 1 on 12/23/2022 by Barrett Miranda MD at [facility] [id number] 08/25/2025 28-B2-33- 080U / / [id number] [employer] Device Clsr Perclose Prostyle Sut-Mediatd Closure-Repair Sys 22520-62 - [id number] Implanted:Qty: 4 on 12/23/2022 by Barrett Miranda MD at [facility] [employer] 10/01/2024 [id number] / / [id number] [employer] Vibha Stent Graft Iliac Leg Extension 15/[id number] Treo Polyester Nitinol 01-C2-52-140u - [id number] Implanted:Qty: 1 on 12/23/2022 by Barrett Miranda MD at [facility] Left: Common Iliac Artery [employer] [id number] 11/03/2025 28-L2-17- 140U / / [id number] [employer] Stent Graft Iliac Leg Extension [id number] Treo Polyester Nitinol 06-U6-38-100u - [id number] Implanted:Qty: 1 on 12/23/2022 by Barrett Miranda MD at [facility] Right: Common Iliac Artery [employer] 09/15/2025 28-L2-17- 100U / / [id number] Insurance MEDICARE [facility]ICARE [facility]ICARE [facility] Advance Directives For more information, please contact: [phone] Documents on File Type Date Recorded Patient Boring Machine Set Up Operator Jig Expl anation ADVANCE DIRECTIVE 12/13/2022 1:54 PM Power of Channel Manager-Medical * Full Code (Latest Code Status on File) Date Activated Date Inactivated Comments 12/23/2022 11:46 AM 12/24/2022 3:39 PM Care Teams Filter Tender Jelly Relationship Specialty Start Date End Date Alexx Gamble DO PCP - General Internal Medicine 04/07/18 Juan Diego Rodriguez MD Consulting Physician Cardiovascular Disease 12/13/22
--- OUTSIDE RECORDS SUMMARY | 2024-06-25 08:17 | XMS_ITS | Clinical Summary ---
Author Organization [facility] Address [address] [place] [address] Care Team Providers Care Art Educator Name Role Phone Unavailable Primary Care Provider [...]
--- OUTSIDE RECORDS SUMMARY | 2024-06-25 08:17 | XMS_ITS | Clinical Summary ---
Author Organization [facility] Medical Office Building A Address [address] [place] [phone] Care Team Providers Care Power Regulator Name Role Phone Alexx Gamble DO Primary Care Provider +1- [phone] Juan Diego Rodriguez MD Unavailable Allergies Active [...] (1,000 Units total) by mouth daily Active mv,Ca,czv-jekz-UU- lycopene 8 mg iron- 200 mcg-600 mcg [...] ischemia to the legs and pelvis, stroke, [place] and . She wished to proceed. Assessment & Plan (11/03/2022 2:09 PM CDT): 4.9 cm AAA found on aortoiliac duplex at [facility]. Discussed recommendation surgical intervention at 5 cm. [...] 04/13/2018 Assessment & Plan (04/20/2018 2:06 PM CONFECTIONERY MAKER): 1 week s/p biopsy Reports an allergic reaction the the tape we used on her nose but this has since cleared up. No report of signs of infection. Healing well, no complications or signs of infection noted on exam. Wound care administered, instructions given both verbally and in written form Will return as needed Assessment & Plan (04/13/2018 2:26 PM CONFECTIONERY MAKER): Locations: left cheek just superior to nasolabial sulcus, nasal tip Biopsies today per procedure notes Wound care administered, instructions given both verbally and in written form Return in one week for wound evaluation and pathology results At risk for cancer 10/06/2016 Hand pain 07/03/2012 Neck pain 07/03/2012 Vertigo 07/03/2012 Encounters Date Type Department Care Team Description 05/30/2024 Orders Only [facility] Vascular and Vein Surgery [address] [place] [phone] Barrett Miranda MD 05/30/2024 Orders Only [facility] Vascular and Vein Surgery [address] [place] [address] [place] [phone] Barrett Miranda MD Infrarenal abdominal aortic aneurysm (AAA) without rupture (Primary Dx) 05/30/2024 Orders Only [facility] Vascular and Vein Surgery [address] [place] [phone] Barrett Miranda MD Infrarenal abdominal aortic aneurysm (AAA) without rupture (Primary Dx) from Last 3 Months Surgical History Surgery Date Site/Laterality Comments MASTECTOMY 04/08/2016 Bilateral BREAST LUMPECTOMY OTHER SURGICAL HISTORY removal of non cancerous tumor on neck COLECTOMY 10/01/2022 Medical History Medical History Date Comments Breast cancer (HCC) Anemia Hypertension Hyperlipidemia GERD (gastroesophageal reflux disease) History of shingles 2019 Aneurysm Diverticulosis Colitis Anemia Insomnia Family History Medical [...] often do you attend chur ch or alevism services? More than 4 times per year 12/24/2022 Do you belong to any clubs o r organizations such as bahai groups, unions, fraternal or athletic groups, or [...] place to sleep or slept in a alf (including now)? No 12/24/2022 Personal Safety Answer Date Recorded Getting School Help Needed Not on file 01/03 Comments No Sex and Gender Information Value Date Recorded Sex Assigned at Not on file Legal Sex Female 11:41 AM CONFECTIONERY MAKER Gender Identity Not on file Sexual Orientation [...] Additional history exists Influenza Vaccine (#1) 2023 , 02/15/2019, 01/01/2018, Additional history exists Fall Risk Assessment 12/25/2023 12/24/2022 Medical Devices Implanted Type Area Taxi Servicer Device Identifier Shelf Expiration Date Model / Serial / Lot Treo Abdominal Stent-Graft System Implanted:Qty: 1 on 12/23/2022 by Barrett Miranda MD at [facility] [id number] 08/25/2025 28-B2-33- 080U / / [id number] [employer] Device Clsr Perclose Prostyle Sut-Mediatd Closure-Repair Sys 23213-77 - [id number] Implanted:Qty: 4 on 12/23/2022 by Barrett Miranda MD at [facility] [employer] 10/01/2024 [id number] / / [id number] [employer] Stent Graft Iliac Leg Extension 15/[id number] Treo Polyester Nitinol 10-T7-80-140u - [id number] Implanted:Qty: 1 on 12/23/2022 by Barrett Miranda MD at [facility] Left: Common Iliac Artery [employer] [id number] 11/03/2025 28-L2-17- 140U / / [id number] [employer] Stent Graft Iliac Leg Extension 15/[id number] Treo Polyester Nitinol 04-L0-26-100u - [id number] Implanted:Qty: 1 on 12/23/2022 by Barrett Miranda MD at [facility] Right: Common Iliac Artery [employer] 09/15/2025 28-L2-17- 100U / / [id number] Insurance MEDICARE [facility] MEDICARE [facility] MEDICARE [facility] Advance Directives For more information, please contact: [phone] Documents on File Type Date Recorded Patient Member Of The Legislative [employer] Expl anation ADVANCE DIRECTIVE 12/13/2022 1:54 PM Power of Cyber Systems Administrator-Medical * Full Code (Latest Code Status on File) Date Activated Date Inactivated Comments 12/23/2022 11:46 AM 12/24/2022 3:39 PM Care Teams Power Regulator Relationship Specialty Start Date End Date Alexx Gamble DO PCP - General Internal Medicine 04/07/18 Juan Diego Rodriguez MD Consulting Physician Cardiovascular Disease 12/13/22
--- OUTSIDE RECORDS SUMMARY | 2024-06-25 08:17 | XMS_ITS | Clinical Summary ---
Author Organization [facility] Address [address] [place] [address] Care Team Providers Care Learning Support Assistant Name Role Phone Armand Bautista MD Unavailable Unavailable Hortensia Weiss MD Primary Care Provider + Source Comments [facility],non-owned Affiliates and Associated Physician Practices is amultiple site organization consisting of ambulatory clinics and hospital sitesin [place], [place], [place] and [place]. This disclosure is being madepursuant to the Care Everywhere program and may not contain all information available regarding this patient. Last updated 17.[facility] Allergies Active Allergy Reactions Criticality Noted Date [...] to complete this topic MENINGOCOCCAL (Group B) VACC INE SHARED DECISION-MAKING Aged Out No longer eligibl e based on patient's age to complete this topic MENINGOCOCCAL GROUPS A/C/Y/W VACCINE Aged Out No longer eligible b ased on patient's age to complete this topic Care Teams Learning Support Assistant Relationship Specialty Start Date End Date Hortensia Weiss MD [address] [place] [address] PCP - General Family Medicine 01/22/13 Armand Bautista MD Rheumatology 06/30/12
[2024-06-25 14:52] LABS: Hematocrit 35.4 % (37.0-47.0); Hemoglobin 11.4 g/dL (12.0-15.0); Mean Corpuscular HGB Conc 32.2 g/dl (32-36); Mean Corpuscular Hemoglobin 32.5 pg (26-34); Mean Corpuscular Volume 100.9 fl (80-100); Mean Platelet Volume 11.3 fl (7.4-10.4); Platelet Count Result 221 k/mm3 (150-375); Red Blood Count 3.51 M/mm3 (4.2-5.4); Red Cell Distribution Width 13.7 % (11.5-14.5); White Blood Count 7.9 K/mm3 (4.5-10.0)
[2024-06-25 15:24] LABS: Add Urine Microscopic? YES; Appearance Urine Clear (Clear); Bacteria Urine None Seen /hpf; Bilirubin Urine Negative (Negative); Blood Urine Negative (Negative); Color Urine Yellow (Yellow); Glucose Urine UA Negative (Negative); Ketones Urine Negative (Negative); Leukocyte Esterase Ur 1+ LEU/UL (Negative); Nitrate Urine Negative (Negative); Non Pathogenic Casts 0-2; Protein Urine Negative (Negative); RBC Urine 0-2 /hpf (0-2); Specific Grav Ur 1.015 (1.001-1.035); Squamous Epithelial Cell Urine None Seen /hpf (Few); Urobilinogen Urine 0.2 mg/dL (<2.0); pH Urine 5.5 (5.0-9.0)
[2024-06-25 15:37] LABS: Albumin Level 4.3 g/dL (3.5-5.1); Anion Gap 12 mmol/L (4-12); Blood Urea Nitrogen 27 mg/dL (7-17); Calcium 9.8 mg/dL (8.4-10.2); Carbon Dioxide 24 mmol/L (22-30); Chloride 104 mmol/L (98-107); Estimated Glomerular Filt Rate 34; Glucose 88 mg/dL (65-110); Phosphorus 3.1 mg/dL (2.5-4.5); Potassium 4.1 mmol/L (3.4-5.0); Sodium 140 mmol/L (137-145)
[2024-06-25 15:45] LABS: Parathyroid Intact 71.3 pg/mL (14.5-75.2)
[2024-06-25 16:05] LABS: Complement C3 114 mg/dL (88-165)
[2024-06-25 16:17] LABS: Erythrocyte Sedimentation Rate 21 mm/hr (0-20)
[2024-06-25 18:17] LABS: Creatinine Urine 61.2 mg/dL; Total Protein Urine Random 7 mg/dL; Ur Ttl Prot Creatinine Ratio 0.11 mg/mg (0-0.20)
[2024-06-25 22:13] LABS: Total Volume 24 Hour Urine 1500 ml; Urea Nitrogen 24 Hour Urine 7.3 G/DAY (12-20)
[2024-06-26 11:43] LABS: Kappa\\Lambda Light Chains 1.74 (0.26-1.65); Lambda Light Chain 20.6 mg/L (5.7-26.3)
[2024-06-26 16:03] LABS: Complement Total CH50 >60 U/mL (31-60)
[2024-06-27 02:28] LABS: Creat 24 Hr 0.92 g/24 h (0.50-2.15); Pro/Creat Ratio 115 mg/g creat (<150); Pro/Creat Ratio mg/mg 0.115 (<0.150); Protein,total, 24 Hr Ur 105 mg/24 h (<150)
[2024-06-28 12:54] LABS: Albumin 100 %
[2024-06-28 22:14] LABS: Immunofixation, Serum Normal pattern.
== END 2024-06-25 08:05 | disposition home or self-care (01) ==
LOC: ANHGOSHLAB 08:05
PROVIDERS: PCP Internal Medicine; Visit Provider Internal Medicine Nephrology
DX: R94.4 Abnormal results of kidney function studies (principal); R89.9 Unspecified abnormal finding in specimens from other organs, systems and tissues
CPT/HCPCS: 36415; 80069; 81001; 81050; 82565; 82570; 83883; 83970; 84156; 84540; 85027; 85652; 86160; 86162; 86334; 86335

== ENCOUNTER 2024-08-23 14:11 | Outpatient (CLI) | payer MEDICARE, SELFPAY ==
--- NOTE | ~2024-08-23 | XR_ITS ---
XR abdomen/kub 1V Ordering provider: Kiah Haney APRN History: . constipation, bloating x 6 mos . Comparison: None. FINDINGS: BOWEL: Nonobstructive bowel gas pattern. ORGANOMEGALY: None. SIGNIFICANT PATHOLOGIC CALCIFICATIONS: None. OTHER: No free air is seen under the diaphragm. Dextroscoliosis with degenerative changes of the spin e. Stent graft is seen in the aorta and iliac arteries. Bilateral hip osteoarthritic changes. IMPRESSION: NO ACUTE ABDOMINAL FINDINGS. Reviewed, dictated and finalized at location A.
== END 2024-08-23 14:12 | disposition home or self-care (01) ==
PROVIDERS: PCP Nurse Practitioner; Visit Provider Nurse Practitioner
DX: R10.31 Right lower quadrant pain (principal); K59.00 Constipation, unspecified
CPT/HCPCS: 74018

== ENCOUNTER 2024-09-03 09:00 | Outpatient (CLI) | payer MEDICARE, SELFPAY ==
--- NOTE | ~2024-09-03 | CT_ITS ---
Non-contrast CT scan of the Abdomen and Pelvis Clinical indication: Abdominal pain Technique: 2.5 mm axial scans were obtained through the abdomen and pelvis without intravenous or or al contrast. Dose reduction technique was used on this scan by utilizing automated exposure control a nd iterative reconstruction technique. The dose-length product (DLP) was 789.11 mGy-cm. COMPARISON: 04/22/2023 Findings: Images through the lung bases reveal no abnormalities. There is no evidence of renal or ureteral calculi. The kidneys and the ureters are nondilated. The liver, spleen, pancreas, gallbladder, and adrenals appear normal. 5.1 cm abdominal aortic aneurys m present with aortic stent graft in place. There is no evidence of bowel obstruction. Images through the pelvis were performed. There is no evidence of ascites or lymphadenopathy. Urinary bladder unremarkable. Impression: No acute abnormality. 5.1 cm abdominal aortic aneurysm, with aortic stent graft in place. Reviewed, dictated and finalized at location . Impression: No acute abnormality. 5.1 cm abdominal aortic aneurysm, with aortic stent graft in place.
== END 2024-09-03 09:01 | disposition home or self-care (01) ==
LOC: GOSHIMG 09:00
PROVIDERS: PCP Clinical Nurse Specialist; Visit Provider Nurse Practitioner
DX: I71.40 Abdominal aortic aneurysm, without rupture, unspecified (principal); K58.1 Irritable bowel syndrome with constipation; R14.0 Abdominal distension (gaseous); Z90.49 Acquired absence of other specified parts of digestive tract; Z95.828 Presence of other vascular implants and grafts
CPT/HCPCS: 74176

== ENCOUNTER 2024-11-19 14:30 | Outpatient (RCR) | payer MEDICARE, SELFPAY ==
--- NOTE | 2024-09-03 15:41 | OPREHPOC ---
Outpatient Therapy Plan of Care This is a Multidisciplinary Plan of Care that may contain components documented by all disciplines (PT, OT, and ST.) PT Problem 1 PT Problem #1 Knowledge Deficit PT Goal 1 Goal / Goal Update 1. Patient will perform independent HEP Target Visit 2 PT Problem 2 PT Problem #2 Impaired Strength PT Goal 1 Goal / Goal Update 1. Improve pelvic floor strength to 4/5 to reduce incontinence Target Visit 4 PT Problem 3 PT Problem #3 Impaired Functional ADLs PT Goal 1 Goal / Goal Update 1. Patient will report no gas incontinence for at least 2 weeks 2. Patient will report not having to modify her schedule due to bowels for at least 2 weeks
--- NOTE | 2024-09-03 15:41 | PTOPEVAL1 ---
Assessment and note entered by Vannessa Woods DPT Evaluation Information Assessment Status Evaluation Diagnosis m62.89 ICD-10 Condition Codes (PT) Weakness R53.1 Subjective Information Pt had surgery and 8 inches of intestines removed in 2022 then hernia repair in 2023. Pt reports a long history of varying between constipation and diarrhea but states she has not been diagnosed with IBS. Has been told she has scarring around her anus which makes her feel the need to have a BM constantly. Uses 4 capfuls of Metamucil in the morning and another 4 at night. Uses Miralax during the day. BM daily over the last week but sometimes is a small amount, 1-3 times a day. Occasionally gets gas and stool incontinence (once a month). Sometimes has discomfort with BM, 2/10 highest. Urinary frequency is highly variable due to kidney issues. Discomfort with urination but no burning. Sometimes feels that she has trouble getting urine out. Can hold urge to void up to 20 minutes. No history of pelvic pain. Pt has never been and no PHOTORESIST CONTACT PRINTER issues. Patient reports she coordinates her daily schedule around her bowels due to needing to get to the bathroom shortly after eating. Diet: patient eats a lot of fruits and vegetables, minimal meat due to kidney issues. Eating one meal a day and snacking at night. Patient goal: not have to worry about gas incontinence, have control of bowels History of breast cancer and chronic renal failure . Reported Pain Level Pain Score 0: Self Report Assessment PT Clinical Summary The patient is presenting to skilled therapy with a history of chronic constipation and reports fecal and gas incontinence. She presents with decreased pelvic floor strength as well as decreased hip and abdominal strength which are contributing to her incontinence and difficulty with typical activities. She will benefit from therapy to address her impairments in order to reduce incontinence and return to full function. Plan of Care Interventions Electrical Stimulation,Manual Therapy,Neuro Re- education,Patient/Caregiver Education,Therapeutic Activities,Therapeutic Exercise PT Services Indicated Yes Treatment Frequency and 1 time a week for 4 visits Duration These treatments will address the objective and functional deficits as defined above. The patient will be advanced safely and appropriately in order for the patient to progress towards his/her prior level of function. Additional exercises will be introduced and as well as a comprehensive home exercise program upon discharge, if needed, ?to ensure carryover of functional gains achieved in the clinic. This treatment plan has been reviewed and agreement upon by the patient.
--- NOTE | 2024-09-24 16:18 | OPREHPOC ---
Outpatient Therapy Plan of Care This is a Multidisciplinary Plan of Care that may contain components documented by all disciplines (PT, OT, and ST.) PT Problem 1 PT Problem #1 Knowledge Deficit PT Goal 1 Goal / Goal Update 1. Patient will perform independent HEP Target Visit 2 Progress Met PT Problem 2 PT Problem #2 Impaired Strength PT Goal 1 Goal / Goal Update 1. Improve pelvic floor strength to 4/5 to reduce incontinence new goal 09/24/24 2. improve pelvic floor strength to 5/5 to reduce incontinence Target Visit 4 Progress Met PT Problem 3 PT Problem #3 Impaired Functional ADLs PT Goal 1 Goal / Goal Update 1. Patient will report no gas incontinence for at least 2 weeks 2. Patient will report not having to modify her schedule due to bowels for at least 2 weeks update 09/24/24 1. not met 2. not met Target Visit 10 Progress Not Met
--- NOTE | 2024-09-24 16:18 | PTOPPROG ---
Assessment and note entered by Vannessa Woods DPT Evaluation Information Assessment Status Progress Diagnosis m62.89 ICD-10 Condition Codes (PT) Weakness R53.1 Subjective Information Pt reports some progress with therapy. Feeling less urgency with bowel and bladder while getting to the toilet. BM multiple times a day over the last week. No pain with BM over the last week. Assessment PT Clinical Summary The patient has made some progress in therapy and reports less urgency with bowel and bladder. She demonstrates improved pelvic floor strength. She continues to report bowel frequency and gas incontinence and will benefit from further therapy to address strength and restore full function. Plan of Care Interventions Electrical Stimulation,Manual Therapy,Neuro Re- education,Patient/Caregiver Education,Therapeutic Activities,Therapeutic Exercise PT Services Indicated Yes Treatment Frequency and 1 time a week for 6 visits Duration These treatments will address the objective and functional deficits as defined above. The patient will be advanced safely and appropriately in order for the patient to progress towards his/her prior level of function. Additional exercises will be introduced and as well as a comprehensive home exercise program upon discharge, if needed, ?to ensure carryover of functional gains achieved in the clinic. This treatment plan has been reviewed and agreement upon by the patient.
--- NOTE | 2024-10-16 09:41 | PCPTNOTE ---
Patient called to cancel appointment 10/16/24 due to illness.
--- NOTE | 2024-10-25 10:23 | PCPTNOTE ---
Patient did not show up for appointment 10/25/24, when called she stated she got the time wrong. Patient reports she is doing well and will just plan to come in next .
--- NOTE | 2024-11-29 09:15 | PCPTNOTE ---
Patient called to cancel due to illness. Rescheduled visit to next week.
== END 2024-12-02 23:59 | disposition home or self-care (01) ==
LOC: ANHGOSHPT 14:30
PROVIDERS: PCP Clinical Nurse Specialist; Visit Provider Nurse Practitioner
DX: M62.89 Other specified disorders of muscle (principal)
CPT/HCPCS: 97112; 97162; 97530

== ENCOUNTER 2024-12-06 10:07 | Outpatient (RCR) | payer MEDICARE, SELFPAY ==
--- NOTE | 2024-12-05 10:31 | OPREHPOC ---
Outpatient Therapy Plan of Care This is a Multidisciplinary Plan of Care that may contain components documented by all disciplines (PT, OT, and ST.) PT Problem 1 PT Problem #1 Knowledge Deficit PT Goal 1 Goal / Goal Update 1. Patient will perform independent HEP Target Visit 2 Progress Met PT Problem 2 PT Problem #2 Impaired Strength PT Goal 1 Goal / Goal Update 1. Improve pelvic floor strength to 4/5 to reduce incontinence new goal 09/24/24 2. improve pelvic floor strength to 5/5 to reduce incontinence update 12/05/24 2. no change Target Visit 4 Progress Met PT Problem 3 PT Problem #3 Impaired Functional ADLs PT Goal 1 Goal / Goal Update 1. Patient will report no gas incontinence for at least 2 weeks 2. Patient will report not having to modify her schedule due to bowels for at least 2 weeks update 09/24/24 1. not met 2. not met update 12/05/24 1. improved 2. improved Target Visit 10 Progress Partially Met
--- NOTE | 2024-12-05 10:31 | PTOPPROG ---
Assessment and note entered by Vannessa Woods DPT Evaluation Information Assessment Status Progress Diagnosis m62.89 ICD-10 Condition Codes (PT) Weakness R53.1 Subjective Information Pt reports she is feeling better. Able to hold urge for b/b better, can hold urge about 5 minutes . BM 2 times a day over the last week, no pain with BM. No urinary or fecal incontinence for several weeks. Has endoscopy/colonoscopy scheduled in several weeks. Assessment PT Clinical Summary The patient has continued to make good progress overall in therapy. She demonstrates improved pelvic floor coordination and reports overall improvements in incontinence and urgency. Due to her progress but upcoming procedures for other GI symptoms, plan to follow up in approximately 1 month to determine any further therapy needs at that time. Plan of Care Interventions Electrical Stimulation,Manual Therapy,Neuro Re- education,Patient/Caregiver Education,Therapeutic Activities,Therapeutic Exercise PT Services Indicated Yes Treatment Frequency and 1 visit in 4 weeks Duration These treatments will address the objective and functional deficits as defined above. The patient will be advanced safely and appropriately in order for the patient to progress towards his/her prior level of function. Additional exercises will be introduced and as well as a comprehensive home exercise program upon discharge, if needed, ?to ensure carryover of functional gains achieved in the clinic. This treatment plan has been reviewed and agreement upon by the patient.
--- NOTE | 2025-02-04 15:15 | PTOPDC ---
Assessment and note entered by Vannessa Woods DPT Evaluation Information Assessment Status Discharge - Pt Not Present Diagnosis m62.89 ICD-10 Condition Codes (PT) Weakness R53.1 Subjective Information - Assessment PT Clinical Summary Patient has not attended therapy since 12/05/24 and her case will be discharged this date. Plan of Care PT Services Indicated No
== END 2025-02-05 08:38 | disposition home or self-care (01) ==
LOC: ANHGOSHPT 10:07
PROVIDERS: PCP Internal Medicine; Visit Provider Nurse Practitioner
DX: M62.89 Other specified disorders of muscle (principal)
CPT/HCPCS: 97530

== ENCOUNTER 2024-12-28 01:24 | Day surgery (SDC) | payer MEDICARE, SELFPAY ==
[2024-12-13 11:11] VITALS: BMI 26.2
[2024-12-28 12:16] VITALS: BP 147/80; PULSE 91; RESP 18; TEMP 36.5; O2SAT 98
[2024-12-28] MEDS: LACTATED RINGERS 1,000 ML 150 ML IV CONT (12:29)
--- NOTE | 2024-12-28 12:44 | WPDANESEPPF ---
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 Patient Data Age: 79 Gender: F Height: 1.73 m Weight: 79.5 kg Last Vital Signs Temp 36.5 C 12/28/24 12:16 Pulse 91 12/28/24 12:16 Resp 18 12/28/24 12:16 BP 147/80 H 12/28/24 12:16 Pulse Ox 98 12/28/24 12:16 O2 Del Method Room Air 12/28/24 12:16 Allergies Allergy/AdvReac Type Severity Reaction Status Date / Time adhesive Allergy Unknown Rash Verified 12/28/24 12:15 Penicillins Allergy Unknown Rash Verified 12/28/24 12:15 poison carol extract Allergy Unknown Rash Verified 12/28/24 12:15 Sulfa (Sulfonamide Allergy Unknown Rash Verified 12/28/24 12:15 Antibiotics) SKIN GLUE Allergy Unknown RASH Uncoded 10/11/24 14:00 ITCHING. Home Medications ?Medication ?Instructions ?Recorded ?Confirmed ?Type cholecalciferol (vitamin D3) 25 1,000 unit PO DAILY 05/02/19 12/28/24 History mcg (1,000 unit) capsule calcium 600 mg (as carbonate)-vit 1 tablet PO DAILY 12/07/20 12/28/24 History D3 20 mcg (800 unit) chewable tablet (Caltrate plus D) multivitamin 1 tablet PO DAILY 01/17/23 12/28/24 History polyethylene glycol 3350 17 gram 8.5 g PO DAILY #100 ea 04/13/23 12/28/24 Rx oral powder packet (Miralax) lansoprazole 30 mg capsule,delayed 15 mg PO DAILY 08/17/23 12/28/24 History release albuterol sulfate 90 mcg/actuation 2 puff inhalation Q4-6H PRN 03/09/24 12/13/24 Rx aerosol inhaler shortness of breath or wheezing 30 days #8.5 grams amlodipine 10 mg tablet See Rx Instructions .Route 07/06/24 12/28/24 Rx .COMPLEX #90 tabs atorvastatin 10 mg tablet 10 mg PO DAILY #90 tabs 09/19/24 12/28/24 Rx dicyclomine 10 mg capsule 10 mg PO BID #60 caps 10/04/24 12/28/24 Rx ropinirole 0.5 mg tablet 0.5 mg PO QHS #90 tabs 10/04/24 12/28/24 Rx escitalopram oxalate 5 mg tablet 5 mg PO DAILY #90 tabs 10/17/24 12/28/24 Rx (Lexapro) eszopiclone 3 mg tablet (Lunesta) 3 mg PO QHS #30 tabs 11/23/24 12/28/24 Rx lisinopril 20 mg tablet 20 mg PO DAILY #90 tabs 12/10/24 12/28/24 Rx Patient hx anesthesia problems: none Family hx anesthesia problems: none Results Review: All pre-operative results and documents have been reviewed as part of the pre-operative evaluation. [facility] Past Medical History Medical History Kidney disease Anxiety Allergies Kidney failure Post-operative pain Ventral hernia without obstruction or gangrene Abnormal CT scan, gallbladder Abdominal hernia Colon cancer screening Diverticula of colon Irritable bowel syndrome with constipation Colitis Shingles (08/2020) Diverticulosis Former smoker Gastroesophageal reflux disease (Unknown) Chronic obstructive pulmonary disease Aneurysm of infrarenal abdominal aorta Stable 4.0 cm fusiform aneurysm on CT of the abdomen and pelvis dated 12/07/2020. Breast cancer Status post radiation therapy and lumpectomy with subsequent bilateral mastectomy. Osteoarthritis Hypertension (Unknown) Hyperlipidemia (Unknown) Osteopenia Surgical History Surgical History Hx of hernia repair Robotic assisted laparoscopic reducible incisional hernia repair with Bard Ventralight ST mesh 9 (defect= 15x5cm) 05/10/23 SAW History of hemicolectomy Open right hemicolectomy with stapled [id number] ileocolic anastomosis perf 09/30/22 History of colonoscopy 2019 Status post cataract extraction of both eyes with insertion of intraocular lens (2014) History of hysterectomy History of bilateral mastectomy (04/2016) History of lumpectomy of right breast (11/2014) History of lumpectomy of left breast (07/2009) Family History Family History Father Family history of malignant neoplasm of brain Family history of diabetes mellitus in first degree relative Malignant neoplasm of prostate Diabetes mellitus Depression Mother Hypertension Patient's mother is Sibling Hypertension Patient's sister is in good health Family history of diabetes mellitus in first degree relative Diabetes mellitus Family history of malignant neoplasm of urinary bladder Family history of chronic obstructive pulmonary disease Dementia Depression Other Family history of allergic disorder Family history of cardiovascular disease Social History Social History Social History: The patient is and lives with her in [place]. She has no children. 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 Smoked 0.5 packs of cigarettes a day for many years and quit in early 2019. No alcohol or illicit substance abuse. She designates her or her sister, Phyllis Laguerre, as her surrogate decision makers. Code status: Full code. Smoking packs per day: 1 Smoking cigarettes per day: 20.0 Years smoked: 30 Smoking pack-years: 30.00 Smoking status: Never smoker Tobacco type: cigarettes Second hand tobacco smoke exposure: No Smoking end date: 04/04/19 Additional smoking assessment comments: STATES 1PK/DAY THEN DECREASED OVER 3 YRS TO FINALLY QUITTING Alcohol intake: never Drinks per week: 1 Substance use: never Substance use type: does not use Do You Feel Safe in your Home?: Yes Lack of Transportation: No Lack of Food: Never True Current Housing: I Have Housing Concerned About Future Housing: No Difficulty Paying Gas/Electric Bills: No Difficulty Paying for Meds: No Currently Unemployed: No Education: Bachelor's Degree Difficulty w/ Childcare or Family Care: No Living arrangements: with family Occupation/Education: retired Gender identity (if verbalized by the patient): Female Spiritual care concerns: No Agree to blood products: Yes Anes - Eval Final PreProcedure Day of Procedure 12/28/24 12:44 Patient weight: normal Heart: regular rate and rhythm Lungs: decreased breath sounds Airway: Mallampati scale class II Neurological: alert and oriented Last oral intake: >/= 8 hours ASA classification: IV Emergent: no Anesthetic plan: proceed Anesthesia type and monitoring: general GIVS and standard monitoring Results Review: All pre-operative results and documents have been reviewed as part of the pre-operative evaluation. Informed Consent: The patient's anesthetic plan and its attendant risks and benefits were discussed with the patient/family/POA. Questions were solicited and answers provided to the satisfaction of the patient/family/POA.
--- NOTE | 2024-12-28 13:01 | PM.HPGS ---
History of Present Illness History of Present Illness Consent: Risks, benefits, and alternatives have been discussed and questions answered. Patient agrees to proceed with procedure. 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, last colonoscopy 2019 Review of Systems Review of Systems: All systems reviewed & are unremarkable except as noted in HPI and below PMFSH Past Medical History Medical History Kidney disease Anxiety Allergies Kidney failure Post-operative pain Ventral hernia without obstruction or gangrene Abnormal CT scan, gallbladder Abdominal hernia Colon cancer screening Diverticula of colon Irritable bowel syndrome with constipation Colitis Shingles (08/2020) Diverticulosis Former smoker Gastroesophageal reflux disease (Unknown) Chronic obstructive pulmonary disease Aneurysm of infrarenal abdominal aorta Stable 4.0 cm fusiform aneurysm on CT of the abdomen and pelvis dated 12/07/2020. Breast cancer Status post radiation therapy and lumpectomy with subsequent bilateral mastectomy. Osteoarthritis Hypertension (Unknown) Hyperlipidemia (Unknown) Osteopenia Surgical History Surgical History Hx of hernia repair Robotic assisted laparoscopic reducible incisional hernia repair with Bard Ventralight ST mesh 9 (defect= 15x5cm) 05/10/23 SAW History of hemicolectomy Open right hemicolectomy with stapled [id number] ileocolic anastomosis perf 09/30/22 History of colonoscopy 2019 Status post cataract extraction of both eyes with insertion of intraocular lens (2014) History of hysterectomy History of bilateral mastectomy (04/2016) History of lumpectomy of right breast (11/2014) History of lumpectomy of left breast (07/2009) Family History Family History Father Family history of malignant neoplasm of brain Family history of diabetes mellitus in first degree relative Malignant neoplasm of prostate Diabetes mellitus Depression Mother Hypertension Patient's mother is Sibling Hypertension Patient's sister is in good health Family history of diabetes mellitus in first degree relative Diabetes mellitus Family history of malignant neoplasm of urinary bladder Family history of chronic obstructive pulmonary disease Dementia Depression Other Family history of allergic disorder Family history of cardiovascular disease Social History Social History Social History: The patient is and lives with her in [place]. She has no children. 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 Smoked 0.5 packs of cigarettes a day for many years and quit in early 2019. No alcohol or illicit substance abuse. She designates her or her sister, Phyllis Laguerre, as her surrogate decision makers. Code status: Full code. Smoking packs per day: 1 Smoking cigarettes per day: 20.0 Years smoked: 30 Smoking pack-years: 30.00 Smoking status: Never smoker Tobacco type: cigarettes Second hand tobacco smoke exposure: No Smoking end date: 04/04/19 Additional smoking assessment comments: STATES 1PK/DAY THEN DECREASED OVER 3 YRS TO FINALLY QUITTING Alcohol intake: never Drinks per week: 1 Substance use: never Substance use type: does not use Do You Feel Safe in your Home?: Yes Lack of Transportation: No Lack of Food: Never True Current Housing: I Have Housing Concerned About Future Housing: No Difficulty Paying Gas/Electric Bills: No Difficulty Paying for Meds: No Currently Unemployed: No Education: Bachelor's Degree Difficulty w/ Childcare or Family Care: No Living arrangements: with family Occupation/Education: retired Gender identity (if verbalized by the patient): Female Spiritual care concerns: No Agree to blood products: Yes Meds Home Medications and Allergies Home Medications ?Medication ?Instructions ?Recorded ?Confirmed ?Type cholecalciferol (vitamin D3) 25 1,000 unit PO DAILY 05/02/19 12/28/24 History mcg (1,000 unit) capsule calcium 600 mg (as carbonate)-vit 1 tablet PO DAILY 12/07/20 12/28/24 History D3 20 mcg (800 unit) chewable tablet (Caltrate plus D) multivitamin 1 tablet PO DAILY 01/17/23 12/28/24 History polyethylene glycol 3350 17 gram 8.5 g PO DAILY #100 ea 04/13/23 12/28/24 Rx oral powder packet (Miralax) lansoprazole 30 mg capsule,delayed 15 mg PO DAILY 08/17/23 12/28/24 History release albuterol sulfate 90 mcg/actuation 2 puff inhalation Q4-6H PRN 03/09/24 12/13/24 Rx aerosol inhaler shortness of breath or wheezing 30 days #8.5 grams amlodipine 10 mg tablet See Rx Instructions .Route 07/06/24 12/28/24 Rx .COMPLEX #90 tabs atorvastatin 10 mg tablet 10 mg PO DAILY #90 tabs 09/19/24 12/28/24 Rx dicyclomine 10 mg capsule 10 mg PO BID #60 caps 10/04/24 12/28/24 Rx ropinirole 0.5 mg tablet 0.5 mg PO QHS #90 tabs 10/04/24 12/28/24 Rx escitalopram oxalate 5 mg tablet 5 mg PO DAILY #90 tabs 10/17/24 12/28/24 Rx (Lexapro) eszopiclone 3 mg tablet (Lunesta) 3 mg PO QHS #30 tabs 11/23/24 12/28/24 Rx lisinopril 20 mg tablet 20 mg PO DAILY #90 tabs 12/10/24 12/28/24 Rx Allergies Allergy/AdvReac Type Severity Reaction Status Date / Time adhesive Allergy Unknown Rash Verified 12/28/24 12:15 Penicillins Allergy Unknown Rash Verified 12/28/24 12:15 poison carol extract Allergy Unknown Rash Verified 12/28/24 12:15 Sulfa (Sulfonamide Allergy Unknown Rash Verified 12/28/24 12:15 Antibiotics) SKIN GLUE Allergy Unknown RASH Uncoded 10/11/24 14:00 ITCHING. Vital Signs Vital Signs - 24 hr 12/28/24 12:16 Temperature 97.7 F Pulse Rate 91 Respiratory Rate 18 Blood Pressure 147/80 H Pulse Oximetry 98 Oxygen Delivery Room Air Exam Const: General: cooperative, comfortable, alert, awake and Physically active HENMT: Mouth: Yes Normal oral and palatal mucosa present Resp: Effort & Inspection: normal respiratory effort Assessment and Plan Assessment and plan (1) Gastroesophageal reflux disease: Onset Date: Unknown Qualifiers: Esophagitis presence: without esophagitis Qualified Code(s): K21.9 - Gastro-esophageal reflux disease without esophagitis Code(s): K21.9 - Gastro-esophageal reflux disease without esophagitis Status: Chronic Assessment and Plan: egd (2) History of hemicolectomy: Code(s): Z90.49 - Acquired absence of other specified parts of digestive tract Status: Acute (3) Irritable bowel syndrome with constipation: Code(s): K58.1 - Irritable bowel syndrome with constipation Status: Acute Assessment and Plan: colonoscopy (4) Abdominal bloating: Code(s): R14.0 - Abdominal distension (gaseous) Status: Acute
--- NOTE | 2024-12-28 13:07 | S_PTH ---
PATIENT: Yaquelin Lee LOC: [facility]#:[id number] AGE/SX: 79/F ROOM: RE12/28/[address]: Brayan Barron MD : 1945 BED: DIS: 12/28/2024 SPEC #: [id number] RECD: 12/28/24 14:14 STATUS: JO CARTER #: [id number] CINTHIA: 12/28/24 13:[address]: Brayan Barron DEPT: [facility] Surgical RECD BY: Terri Hernandez ENTERED: 12/28/24 14:14 SP TYPE: Surgical OTHR DR: Alexx Gamble DO Tissues: A - Gastric Biopsy B - Small Bowel Bx C - Colon Biopsy Procedures: Hematoxylin and Eosin Stain Gross and Microscopic Level 4
--- NOTE | 2024-12-28 13:15 | SUR.OPER ---
EGD TIME 8411-0624, COLONOSCOPY START TIME 1316
[2024-12-28 13:28] VITALS: BP 136/92; PULSE 72; RESP 20; O2SAT 99
[2024-12-28 13:38] VITALS: BP 115/80; PULSE 71; RESP 20; O2SAT 99
[2024-12-28 13:48] VITALS: BP 120/58; PULSE 69; RESP 19; O2SAT 99
== END 2024-12-28 14:09 | disposition home or self-care (01) ==
PROVIDERS: PCP Internal Medicine; Visit Provider Internal Medicine Gastroenterology
PROC: 0DJ08ZZ Inspection of Upper Intestinal Tract, Via Natural or Artificial Opening Endoscopic (ICD-10-PCS; CPT 45378; principal; 2024-12-28 13:00)
DX: K31.89 Other diseases of stomach and duodenum (principal); K21.9 Gastro-esophageal reflux disease without esophagitis; K64.8 Other hemorrhoids; K57.30 Diverticulosis of large intestine without perforation or abscess without bleeding; K58.1 Irritable bowel syndrome with constipation; I10 Essential (primary) hypertension; E78.5 Hyperlipidemia, unspecified; J44.9 Chronic obstructive pulmonary disease, unspecified; F41.9 Anxiety disorder, unspecified; N19 Unspecified kidney failure; M85.88 Other specified disorders of bone density and structure, other site; M19.90 Unspecified osteoarthritis, unspecified site; Z79.51 Long term (current) use of inhaled steroids; Z98.890 Other specified postprocedural states; Z98.0 Intestinal bypass and anastomosis status; Z90.49 Acquired absence of other specified parts of digestive tract; Z87.891 Personal history of nicotine dependence; Z85.3 Personal history of malignant neoplasm of breast; Z86.79 Personal history of other diseases of the circulatory system; Z87.19 Personal history of other diseases of the digestive system; Z80.8 Family history of malignant neoplasm of other organs or systems; Z80.42 Family history of malignant neoplasm of prostate; Z80.52 Family history of malignant neoplasm of bladder; Z82.49 Family history of ischemic heart disease and other diseases of the circulatory system
CPT/HCPCS: 43239; 45380; 88305; J2003; J2704; J7120

== ENCOUNTER 2025-01-18 11:24 | Outpatient (CLI) | payer MEDICARE, SELFPAY ==
[2025-01-18 12:48] LABS: Hematocrit 34.0 % (37.0-47.0); Hemoglobin 10.9 g/dL (12.0-15.0); Mean Corpuscular HGB Conc 32.1 g/dl (32-36); Mean Corpuscular Hemoglobin 31.6 pg (26-34); Mean Corpuscular Volume 98.6 fl (80-100); Platelet Count Result 214 k/mm3 (150-375); Red Blood Count 3.45 M/mm3 (4.2-5.4); White Blood Count 7.6 K/mm3 (4.5-10.0)
[2025-01-18 12:57] LABS: Albumin Level 4.2 g/dL (3.5-5.1); Anion Gap 9 mmol/L (4-12); Blood Urea Nitrogen 21 mg/dL (7-17); Calcium 9.7 mg/dL (8.4-10.2); Carbon Dioxide 25 mmol/L (22-30); Chloride 103 mmol/L (98-107); Estimated Glomerular Filt Rate 37; Glucose 113 mg/dL (65-110); Potassium 4.4 mmol/L (3.4-5.0); Sodium 137 mmol/L (137-145)
[2025-01-18 13:17] LABS: Total Protein Urine Random 16 mg/dL; Ur Ttl Prot Creatinine Ratio 0.18 mg/mg (0-0.20)
[2025-01-18 13:23] LABS: Parathyroid Intact 69.9 pg/mL (14.5-75.2)
== END 2025-01-18 11:25 | disposition home or self-care (01) ==
PROVIDERS: PCP Internal Medicine; Visit Provider Internal Medicine Nephrology
DX: R94.4 Abnormal results of kidney function studies (principal)
CPT/HCPCS: 36415; 80069; 82570; 83970; 84156; 85027